=== PATIENT | female | born 1960 | race Caucasian/White ===

== ENCOUNTER 2018-09-03 12:36 | Inpatient (IN) | payer BC, MEDICARE ==
[2018-09-03 12:50] LABS: Glucose,Whole Blood 557 mg/dL (75-99)
[2018-09-03] MEDS ORDERED: SODIUM CHLORIDE 0.9% 1,000 ML IV STA (13:25)
--- NOTE | 2018-09-03 13:31 | ED ---
Weakness HPI - General Chief complaint: Weakness Stated complaint: hyperglycemia Time Seen by Provider: 09/03/18 12:57 Source: patient, RN notes reviewed Mode of arrival: ambulatory Limitations: no limitations - History of Present Illness Initial comments: 57-year-old female presents emergency Department chief complaint of generalized weakness, hyperglycemia. Patient states her blood sugars have been very elevated over the last 3-4 days. She states she did not read this morning. Patient states that she is on metformin and insulin. Patient states she try to see her PCP who advised to come emergency department. She states she got lightheaded, dizzy fell off balance. Patient denies any current chest pain or shortness breath. She does have chronic back pain not worsened usual. She does have urinary frequency and increased thirst. Patient denies any fevers or chills no recent URI symptoms. Denies any focal weakness - Related Data Home Medications Medication Instructions Recorded Confirmed Aspirin 325 mg PO DAILY 09/03/18 09/03/18 Atenolol 100 mg PO DAILY 09/03/18 09/03/18 Calcium 1000mg 1,000 mg PO DAILY 09/03/18 09/03/18 Insulin NPH Human Isophane 45 unit SQ BID 09/03/18 09/03/18 [NovoLIN N] Insulin Regular, Human [NovoLIN R] 25 unit SQ AC-TID 09/03/18 09/03/18 Insulin Regular, Human [Novolin R] See Protocol SQ AC-TID 09/03/18 09/03/18 Krill Oil 500 mg PO DAILY 09/03/18 09/03/18 LORazepam [Ativan] 2 mg PO TID 09/03/18 09/03/18 Lisinopril [Zestril] 20 mg PO DAILY 09/03/18 09/03/18 Lisinopril-Hctz 20-12.5 mg 1 tab PO DAILY 09/03/18 09/03/18 [Zestoretic 20-12.5] QUEtiapine FUMARATE [SEROquel] 600 mg PO HS 09/03/18 09/03/18 Trileptal(Unknown Dose) 1 tab PO BID 09/03/18 09/03/18 Vitamin B Complex 1 cap PO DAILY 09/03/18 09/03/18 Vortioxetine Hydrobromide 5 mg PO BID 09/03/18 09/03/18 [Brintellix] Zolpidem Tartrate [Ambien] 5 mg PO HS 09/03/18 09/03/18 metFORMIN HCL 1,000 mg PO BID 09/03/18 09/03/18 Allergies Allergy/AdvReac Type Severity Reaction Status Date / Time No Known Allergies Allergy Verified 09/03/18 13:34 Review of Systems ROS Statement: Those systems with pertinent positive or pertinent negative responses have been documented in the HPI. ROS Other: All systems not noted in ROS Statement are negative. Past Medical History Past Medical History: Diabetes Mellitus, Hypertension Additional Past Medical History / Comment(s): Brain injury History of Any Multi-Drug Resistant Organisms: None Reported Additional Past Surgical History / Comment(s): Foot, back x 5, arm Past Psychological History: Anxiety, Depression, PTSD Smoking Status: Never smoker Past Alcohol Use History: None Reported Past Drug Use History: None Reported General Exam Limitations: no limitations General appearance: alert, in no apparent distress Head exam: Present: atraumatic, normocephalic, normal inspection Eye exam: Present: normal appearance, PERRL, EOMI. Absent: scleral icterus, conjunctival injection, periorbital swelling ENT exam: Present: normal oropharynx, mucous membranes dry. Absent: mucous membranes moist Neck exam: Present: normal inspection. Absent: tenderness, meningismus, lymphadenopathy Respiratory exam: Present: normal lung sounds bilaterally. Absent: respiratory distress, wheezes, rales, rhonchi, stridor Cardiovascular Exam: Present: normal rhythm, tachycardia, normal heart sounds. Absent: systolic murmur, diastolic murmur, rubs, gallop, clicks GI/Abdominal exam: Present: soft, normal bowel sounds. Absent: distended, tenderness, guarding, rebound, rigid Extremities exam: Present: normal inspection, full ROM, normal capillary refill. Absent: tenderness, pedal edema, joint swelling, calf tenderness Neurological exam: Present: alert, oriented X3, CN II-XII intact, reflexes normal. Absent: motor sensory deficit Skin exam: Present: warm, dry, intact, normal color. Absent: rash Course Vital Signs 09/03/18 09/03/18 09/03/18 12:42 14:37 16:08 Temperature 97.7 F 97.8 F 97.8 F Pulse Rate 120 H 104 H 93 Respiratory 20 16 18 Rate Blood Pressure 87/53 104/56 126/71 O2 Sat by Pulse 99 95 97 Oximetry EKG Findings - EKG Comments: EKG Findings:: EKG performed at 14:15 sinus tachycardia with a rate of 101 HI 162 QRS 96 QT/QTC 360/466 Medical Decision Making - Medical Decision Making 57-year-old female presented for weakness, hyperglycemia. Patient be admitted for uncontrolled diabetes, hyperglycemia, lactic acidosis, urinary tract infection . Patient was given 2 L fluid bolus of normal saline, started on 200 and hour, patient was given insulin and started on insulin drip at 0.05 mcg/kg per hour. Patient was given Rocephin for urinary tract infection, urine culture was obtained patient will have consult to certified breastfeeding educator, dietitian. Repeat labs. - Lab Data Result diagrams: 09/03/18 14:11 09/03/18 14:11 Lab Results 09/03/18 09/03/18 09/03/18 Range/Units 12:47 14:11 14:11 WBC 5.0 (3.8-10.6) k/uL RBC 4.55 (3.80-5.40) m/uL Hgb 12.8 (11.4-16.0) gm/dL Hct 39.3 (34.0-46.0) % MCV 86.4 (80.0-100.0) fL MCH 28.2 (25.0-35.0) pg MCHC 32.7 (31.0-37.0) g/dL RDW 14.8 (11.5-15.5) % Plt Count 95 L (150-450) k/uL Neutrophils % 57 % Lymphocytes % 30 % Monocytes % 7 % Eosinophils % 3 % Basophils % 1 % Neutrophils # 2.9 (1.3-7.7) k/uL Lymphocytes # 1.5 (1.0-4.8) k/uL Monocytes # 0.3 (0-1.0) k/uL Eosinophils # 0.1 (0-0.7) k/uL Basophils # 0.0 (0-0.2) k/uL Sodium 129 L (137-145) mmol/L Potassium 4.0 (3.5-5.1) mmol/L Chloride 92 L (98-107) mmol/L Carbon Dioxide 22 (22-30) mmol/L Anion Gap 15 mmol/L BUN 34 H (7-17) mg/dL Creatinine 1.65 H (0.52-1.04) mg/dL Est GFR (CKD-EPI)AfAm 40 (>60 ml/min/1.73 sqM) Est GFR (CKD-EPI)NonAf 35 (>60 ml/min/1.73 sqM) Glucose 611 H* (74-99) mg/dL POC Glucose (mg/dL) 557 H (75-99) mg/dL POC Glu Protozoologist ID Praveen Callejas Plasma Lactic Acid Feroz (0.7-2.0) mmol/L Calcium 9.6 (8.4-10.2) mg/dL Total Bilirubin 0.6 (0.2-1.3) mg/dL AST 108 H (14-36) U/L ALT 132 H (9-52) U/L Alkaline Phosphatase 120 (38-126) U/L Troponin I (0.000-0.034) ng/mL Total Protein 6.6 (6.3-8.2) g/dL Albumin 3.7 (3.5-5.0) g/dL Urine Color Urine Appearance (Clear) Urine pH (5.0-8.0) Ur Specific [place] (1.001-1.035) Urine Protein (Negative) Urine Glucose (UA) (Negative) Urine Ketones (Negative) Urine Blood (Negative) Urine Nitrite (Negative) Urine Bilirubin (Negative) Urine Urobilinogen (<2.0) mg/dL Ur Leukocyte Esterase (Negative) Urine RBC (0-5) /hpf Urine WBC (0-5) /hpf Ur Squamous Epith Cells (0-4) /hpf Urine Bacteria (None) /hpf Hyaline Casts (0-2) /lpf Urine Mucus (None) /hpf Acetone, Qual Negative (Negative) 09/03/18 09/03/18 09/03/18 Range/Units 14:11 14:25 15:08 WBC (3.8-10.6) k/uL RBC (3.80-5.40) m/uL Hgb (11.4-16.0) gm/dL Hct (34.0-46.0) % MCV (80.0-100.0) fL MCH (25.0-35.0) pg MCHC (31.0-37.0) g/dL RDW (11.5-15.5) % Plt Count (150-450) k/uL Neutrophils % % Lymphocytes % % Monocytes % % Eosinophils % % Basophils % % Neutrophils # (1.3-7.7) k/uL Lymphocytes # (1.0-4.8) k/uL Monocytes # (0-1.0) k/uL Eosinophils # (0-0.7) k/uL Basophils # (0-0.2) k/uL Sodium (137-145) mmol/L Potassium (3.5-5.1) mmol/L Chloride (98-107) mmol/L Carbon Dioxide (22-30) mmol/L Anion Gap mmol/L BUN (7-17) mg/dL Creatinine (0.52-1.04) mg/dL Est GFR (CKD-EPI)AfAm (>60 ml/min/1.73 sqM) Est GFR (CKD-EPI)NonAf (>60 ml/min/1.73 sqM) Glucose (74-99) mg/dL POC Glucose (mg/dL) (75-99) mg/dL POC Glu Protozoologist ID Plasma Lactic Acid Feroz 3.3 H* (0.7-2.0) mmol/L Calcium (8.4-10.2) mg/dL Total Bilirubin (0.2-1.3) mg/dL AST (14-36) U/L ALT (9-52) U/L Alkaline Phosphatase (38-126) U/L Troponin I 0.013 (0.000-0.034) ng/mL Total Protein (6.3-8.2) g/dL Albumin (3.5-5.0) g/dL Urine Color Yellow Urine Appearance Cloudy H (Clear) Urine pH 5.0 (5.0-8.0) Ur Specific [place] 1.019 (1.001-1.035) Urine Protein Trace H (Negative) Urine Glucose (UA) 4+ H (Negative) Urine Ketones Negative (Negative) Urine Blood Small H (Negative) Urine Nitrite Negative (Negative) Urine Bilirubin Negative (Negative) Urine Urobilinogen <2.0 (<2.0) mg/dL Ur Leukocyte Esterase Large H (Negative) Urine RBC 4 (0-5) /hpf Urine WBC 72 H (0-5) /hpf Ur Squamous Epith Cells 2 (0-4) /hpf Urine Bacteria Few H (None) /hpf Hyaline Casts 5 H (0-2) /lpf Urine Mucus Rare H (None) /hpf Acetone, Qual (Negative) Disposition Clinical Impression: Hyperglycemia, Uncontrolled diabetes mellitus, Lactic acidosis, Urinary tract infection Disposition: ADMITTED IP TO THIS HOSP Condition: Fair Referrals: Narayan Rocha DO [Primary Care Provider] - 1-2 days
[2018-09-03 14:42] LABS: ALT 132 U/L (9-52); AST 108 U/L (14-36); Albumin 3.7 g/dL (3.5-5.0); Alkaline Phosphatase 120 U/L (38-126); Anion Gap 15 mmol/L; Blood Urea Nitrogen 34 mg/dL (7-17); Calcium 9.6 mg/dL (8.4-10.2); Carbon Dioxide 22 mmol/L (22-30); Chloride 92 mmol/L (98-107); Sodium 129 mmol/L (137-145); Total Bilirubin 0.6 mg/dL (0.2-1.3); Total Protein 6.6 g/dL (6.3-8.2)
[2018-09-03 14:49] LABS: Appearance,Urine Cloudy (Clear); Bacteria,Urine Few /hpf; Bilirubin,Urine Negative (Negative); Blood,Urine Small (Negative); Color,Urine Yellow; Glucose,Urine (UA) 4+ (Negative); Hyaline Casts,Urine 5 /lpf (0-2); Ketones,Urine Negative (Negative); Leukocyte Esterase,Urine Large (Negative); Mucus,Urine Rare /hpf; Nitrite,Urine Negative (Negative); Protein,Urine Trace (Negative); RBC,Urine 4 /hpf (0-5); Specific Gravity,Urine 1.019 (1.001-1.035); Squamous Epithelial Cell,Urine 2 /hpf (0-4); Urobilinogen,Urine <2.0 mg/dL (<2.0); WBC,Urine 72 /hpf (0-5)
[2018-09-03 14:49] LABS: Glucose 611 mg/dL (74-99)
[2018-09-03 14:51] LABS: Basophils % (A) 1 %; Eosinophils # (A) 0.1 k/uL (0-0.7); Eosinophils % (A) 3 %; HCT 39.3 % (34.0-46.0); HGB 12.8 gm/dL (11.4-16.0); Lymphocytes # (A) 1.5 k/uL (1.0-4.8); Lymphocytes % (A) 30 %; MCH 28.2 pg (25.0-35.0); MCHC 32.7 g/dL (31.0-37.0); MCV 86.4 fL (80.0-100.0); Mean Platelet Volume 8.6; Monocytes # (A) 0.3 k/uL (0-1.0); Monocytes % (A) 7 %; Neutrophils # (A) 2.9 k/uL (1.3-7.7); Neutrophils % (A) 57 %; RBC 4.55 m/uL (3.80-5.40); RDW 14.8 % (11.5-15.5)
[2018-09-03] MEDS ORDERED: INSULIN REGULAR 100 UNIT/ML VIAL IV ONE (15:16)
[2018-09-03 15:25] LABS: Platelet Count 95 k/uL (150-450)
[2018-09-03] MEDS ORDERED: INSULIN REGULAR 100 UNIT in SODIUM CHLORIDE 0.9% 100 ML IV SCH (16:30)
[2018-09-03] MEDS: SODIUM CHLORIDE 0.9% 1,000 ML IV SCH ×2 (16:59→21:50)
[2018-09-03 17:04] LABS: Glucose,Whole Blood 463 mg/dL (75-99)
[2018-09-03] MEDS ORDERED: ONDANSETRON 4 MG/2 ML VIAL IVP PRN (17:27)
[2018-09-03 18:01] LABS: Glucose,Whole Blood 405 mg/dL (75-99)
--- NOTE | 2018-09-03 18:39 | P.HPIM ---
History of Present Illness H&P Date: 09/03/18 Chief Complaint: Elevated blood sugar This is a 57-year-old female with past medical history noted below significant for morbid obesity and type 2 diabetes who presented to the emergency room with elevated blood sugar. Patient said that for the past couple of days she has not been feeling well. She is complaining of urinary frequency and some suprapubic pain. She has been having decreased appetite. She said that she has been taking her insulin as directed by noted that her blood glucose has been persistently high over the past couple of days. She called her PCP today who directed her to go to the emergency room. In the emergency room, blood glucose was noted to be 611 on presentation with no anion gap and no evidence of metabolic acidosis. Patient had mild elevation in her lactic acid. She was started on IV insulin drip and aggressive IV fluid hydration. Patient is doing better when I saw her. She does not have any complaints. Review of Systems Review of system: 14 points review of systems were obtained and were negative except to what were mentioned in the HPI. Past Medical History Past Medical History: Diabetes Mellitus, Hypertension Additional Past Medical History / Comment(s): Brain injury History of Any Multi-Drug Resistant Organisms: None Reported Additional Past Surgical History / Comment(s): Foot, back x 5, arm Past Psychological History: Anxiety, Depression, PTSD Smoking Status: Never smoker Past Alcohol Use History: None Reported Past Drug Use History: None Reported Medications and Allergies Home Medications Medication Instructions Recorded Confirmed Type Aspirin 325 mg PO DAILY 09/03/18 09/03/18 History Atenolol 100 mg PO DAILY 09/03/18 09/03/18 History Calcium 1000mg 1,000 mg PO DAILY 09/03/18 09/03/18 History Insulin NPH Human Isophane 45 unit SQ BID 09/03/18 09/03/18 History [NovoLIN N] Insulin Regular, Human [NovoLIN R] 25 unit SQ AC-TID 09/03/18 09/03/18 History Insulin Regular, Human [Novolin R] See Protocol SQ AC-TID 09/03/18 09/03/18 History Krill Oil 500 mg PO DAILY 09/03/18 09/03/18 History LORazepam [Ativan] 2 mg PO TID 09/03/18 09/03/18 History Lisinopril [Zestril] 20 mg PO DAILY 09/03/18 09/03/18 History Lisinopril-Hctz 20-12.5 mg 1 tab PO DAILY 09/03/18 09/03/18 History [Zestoretic 20-12.5] QUEtiapine FUMARATE [SEROquel] 600 mg PO HS 09/03/18 09/03/18 History Trileptal(Unknown Dose) 1 tab PO BID 09/03/18 09/03/18 History Vitamin B Complex 1 cap PO DAILY 09/03/18 09/03/18 History Vortioxetine Hydrobromide 5 mg PO BID 09/03/18 09/03/18 History [Brintellix] Zolpidem Tartrate [Ambien] 5 mg PO HS 09/03/18 09/03/18 History metFORMIN HCL 1,000 mg PO BID 09/03/18 09/03/18 History Allergies Allergy/AdvReac Type Severity Reaction Status Date / Time No Known Allergies Allergy Verified 09/03/18 13:34 Physical Exam Vitals: Vital Signs Temp Pulse Resp BP Pulse Ox 09/03/18 16:08 97.8 F 93 18 126/71 97 09/03/18 14:37 97.8 F 104 H 16 104/56 95 09/03/18 12:42 97.7 F 120 H 20 87/53 99 Intake and Output 09/03/18 09/03/18 09/03/18 06:59 14:59 22:59 Intake Total 6.846 Balance 6.846 Intake: Intake, IV Titration 6.846 Amount Insulin Regular 100 unit 6.846 In Sodium Chloride 0.9% 100 ml @ 0.05 UNITS/KG/HR 6.52 mls/hr IV .[id number] [facility] Rx#:[id number] Other: Weight 129.274 kg General: The patient is awake and alert, in no distress. Patient is morbidly obese Eye: there is normal conjunctiva bilaterally. Neck: The neck is supple, there is no JVD. Cardiovascular: Normal S1-S2, no S3-S4, no murmurs. Respiratory: Lungs clear to auscultation bilaterally Gastrointestinal: Abdomen is soft, nontender Musculoskeletal: There is no pedal edema. Neurological:. Speech is normal. Skin: Skin is warm and dry Results CBC & Chem 7: 09/03/18 14:11 09/03/18 14:11 Labs: Abnormal Lab Results - Last 24 Hours (Table) 09/03/18 09/03/18 09/03/18 Range/Units 12:47 14:11 14:11 Plt Count 95 L (150-450) k/uL Sodium 129 L (137-145) mmol/L Chloride 92 L (98-107) mmol/L BUN 34 H (7-17) mg/dL Creatinine 1.65 H (0.52-1.04) mg/dL Glucose 611 H* (74-99) mg/dL POC Glucose (mg/dL) 557 H (75-99) mg/dL Plasma Lactic Acid Feroz (0.7-2.0) mmol/L AST 108 H (14-36) U/L ALT 132 H (9-52) U/L Urine Appearance (Clear) Urine Protein (Negative) Urine Glucose (UA) (Negative) Urine Blood (Negative) Ur Leukocyte Esterase (Negative) Urine WBC (0-5) /hpf Urine Bacteria (None) /hpf Hyaline Casts (0-2) /lpf Urine Mucus (None) /hpf 09/03/18 09/03/18 09/03/18 Range/Units 14:25 15:08 17:02 Plt Count (150-450) k/uL Sodium (137-145) mmol/L Chloride (98-107) mmol/L BUN (7-17) mg/dL Creatinine (0.52-1.04) mg/dL Glucose (74-99) mg/dL POC Glucose (mg/dL) 463 H (75-99) mg/dL Plasma Lactic Acid Feroz 3.3 H* (0.7-2.0) mmol/L AST (14-36) U/L ALT (9-52) U/L Urine Appearance Cloudy H (Clear) Urine Protein Trace H (Negative) Urine Glucose (UA) 4+ H (Negative) Urine Blood Small H (Negative) Ur Leukocyte Esterase Large H (Negative) Urine WBC 72 H (0-5) /hpf Urine Bacteria Few H (None) /hpf Hyaline Casts 5 H (0-2) /lpf Urine Mucus Rare H (None) /hpf 09/03/18 Range/Units 17:59 Plt Count (150-450) k/uL Sodium (137-145) mmol/L Chloride (98-107) mmol/L BUN (7-17) mg/dL Creatinine (0.52-1.04) mg/dL Glucose (74-99) mg/dL POC Glucose (mg/dL) 405 H (75-99) mg/dL Plasma Lactic Acid Feroz (0.7-2.0) mmol/L AST (14-36) U/L ALT (9-52) U/L Urine Appearance (Clear) Urine Protein (Negative) Urine Glucose (UA) (Negative) Urine Blood (Negative) Ur Leukocyte Esterase (Negative) Urine WBC (0-5) /hpf Urine Bacteria (None) /hpf Hyaline Casts (0-2) /lpf Urine Mucus (None) /hpf Assessment and Plan Assessment: 1. UTI 2. Sepsis with septic shock on presentation 3. Hyperglycemia without DKA 4. Uncontrolled type 2 diabetes 5. Hypovolemic hyponatremia 6. Acute kidney injury 7. Underlying PTSD, anxiety, and depression Patient was seen and evaluated by me in the emergency room. We will continue aggressive IV fluid hydration with normal saline. Patient is currently on her second bolus then we will continue at 200 mL per hour. IV insulin drip initiated and most recent blood glucose is approximately 400 improving from 611. Repeat lactic acid ordered for now. We will continue supportive care. Antibiotic with IV ceftriaxone. Awaiting urine and blood culture.
[2018-09-03 19:06] LABS: Glucose,Whole Blood 355 mg/dL (75-99)
[2018-09-03 20:07] LABS: Glucose,Whole Blood 295 mg/dL (75-99)
[2018-09-03 21:47] LABS: Glucose,Whole Blood 215 mg/dL (75-99)
[2018-09-03] MEDS: INSULIN ASPART 100 UNIT/ML 1 ML 10 ML VIAL SQ SCH (21:49)
[2018-09-03] MEDS: HEPARIN SODIUM,PORCINE 5,000 UNIT/ML 1 ML VIAL SQ SCH (21:49)
[2018-09-03] MEDS: LORazepam 1 MG TAB PO PRN (21:49)
[2018-09-03] MEDS: QUEtiapine 400 MG TAB PO SCH (23:23)
[2018-09-03] MEDS: ACETAMINOPHEN TAB 325 MG TAB PO PRN (23:24)
[2018-09-04] MEDS: SODIUM CHLORIDE 0.9% 1,000 ML IV SCH ×2 (00:44→04:47)
[2018-09-04 06:39] LABS: Glucose,Whole Blood 393 mg/dL (75-99)
[2018-09-04] MEDS: INSULIN ASPART 100 UNIT/ML 1 ML 10 ML VIAL SQ SCH ×4 (06:46→21:10)
[2018-09-04 07:30] LABS: Albumin 3.3 g/dL (3.5-5.0); Potassium 4.2 mmol/L (3.5-5.1); Total Bilirubin 0.4 mg/dL (0.2-1.3); Total Protein 6.1 g/dL (6.3-8.2)
[2018-09-04 07:48] LABS: Basophils % (A) 1 %; Eosinophils # (A) 0.1 k/uL (0-0.7); Eosinophils % (A) 3 %; HCT 37.4 % (34.0-46.0); HGB 11.9 gm/dL (11.4-16.0); Lymphocytes % (A) 47 %; MCH 27.3 pg (25.0-35.0); MCV 85.5 fL (80.0-100.0); Monocytes # (A) 0.2 k/uL (0-1.0); Monocytes % (A) 5 %; Neutrophils # (A) 1.7 k/uL (1.3-7.7); Neutrophils % (A) 41 %; RBC 4.37 m/uL (3.80-5.40); RDW 14.8 % (11.5-15.5); WBC 4.2 k/uL (3.8-10.6)
[2018-09-04 07:55] LABS: Platelet Count 95 k/uL (150-450)
[2018-09-04] MEDS: INSULIN NPH 300 UNIT/3 ML VIAL SQ SCH ×2 (10:24→17:29)
[2018-09-04] MEDS: INSULIN REGULAR 100 UNIT/ML VIAL SQ SCH ×3 (10:25→17:30)
[2018-09-04] MEDS: ASPIRIN 325 MG TAB PO SCH (10:30)
[2018-09-04] MEDS: traMADol 50 MG TAB PO SCH ×3 (10:31→21:10)
[2018-09-04] MEDS: HEPARIN SODIUM,PORCINE 5,000 UNIT/ML 1 ML VIAL SQ SCH ×2 (10:31→21:10)
[2018-09-04] MEDS: LISINOPRIL 20 MG TAB PO SCH (10:31)
--- NOTE | 2018-09-04 11:16 | P.PN ---
Subjective Progress Note Date: 09/04/18 Patient is doing well today. Her blood glucose was elevated this morning. Insulin drip was discontinued last night but unfortunately patient was not started on any of her home dose of insulin. Objective - Vital Signs Vital signs: Vital Signs Temp 97.7 F 09/04/18 08:00 Pulse 100 09/04/18 08:00 Resp 18 09/04/18 08:00 BP 133/70 09/04/18 08:00 Pulse Ox 94 L 09/04/18 08:00 Intake & Output 09/03/18 09/04/18 09/04/18 18:59 06:59 18:59 Intake Total 490.355 10.292 360 Balance 490.355 10.292 360 Weight 129.274 kg 129.6 kg Intake: Intake, IV Titration 10.355 10.292 Amount Insulin Regular 100 unit 10.355 10.292 In Sodium Chloride 0.9% 100 ml @ 0.05 UNITS/KG/HR 6.52 mls/hr IV .[id number] [facility] Rx#:[id number] Oral 480 360 Other: Voiding Method Toilet - Exam General: The patient is awake and alert, in no distress Eye: there is normal conjunctiva bilaterally. Neck: The neck is supple, there is no JVD. Cardiovascular: Normal S1-S2, no S3-S4, no murmurs. Respiratory: Lungs clear to auscultation bilaterally Gastrointestinal: Abdomen is soft, nontender Musculoskeletal: There is no pedal edema. Neurological:. Speech is normal. Skin: Skin is warm and dry - Labs CBC & Chem 7: 09/04/18 06:21 09/04/18 06:21 Labs: Abnormal Lab Results - Last 24 Hours (Table) 09/03/18 09/03/18 09/03/18 Range/Units 12:47 14:11 14:11 Plt Count 95 L (150-450) k/uL Sodium 129 L (137-145) mmol/L Chloride 92 L (98-107) mmol/L BUN 34 H (7-17) mg/dL Creatinine 1.65 H (0.52-1.04) mg/dL Glucose 611 H* (74-99) mg/dL POC Glucose (mg/dL) 557 H (75-99) mg/dL Plasma Lactic Acid Feroz (0.7-2.0) mmol/L AST 108 H (14-36) U/L ALT 132 H (9-52) U/L Total Protein (6.3-8.2) g/dL Albumin (3.5-5.0) g/dL Urine Appearance (Clear) Urine Protein (Negative) Urine Glucose (UA) (Negative) Urine Blood (Negative) Ur Leukocyte Esterase (Negative) Urine WBC (0-5) /hpf Urine Bacteria (None) /hpf Hyaline Casts (0-2) /lpf Urine Mucus (None) /hpf 09/03/18 09/03/18 09/03/18 Range/Units 14:25 15:08 17:02 Plt Count (150-450) k/uL Sodium (137-145) mmol/L Chloride (98-107) mmol/L BUN (7-17) mg/dL Creatinine (0.52-1.04) mg/dL Glucose (74-99) mg/dL POC Glucose (mg/dL) 463 H (75-99) mg/dL Plasma Lactic Acid Feroz 3.3 H* (0.7-2.0) mmol/L AST (14-36) U/L ALT (9-52) U/L Total Protein (6.3-8.2) g/dL Albumin (3.5-5.0) g/dL Urine Appearance Cloudy H (Clear) Urine Protein Trace H (Negative) Urine Glucose (UA) 4+ H (Negative) Urine Blood Small H (Negative) Ur Leukocyte Esterase Large H (Negative) Urine WBC 72 H (0-5) /hpf Urine Bacteria Few H (None) /hpf Hyaline Casts 5 H (0-2) /lpf Urine Mucus Rare H (None) /hpf 09/03/18 09/03/18 09/03/18 Range/Units 17:59 19:03 19:10 Plt Count (150-450) k/uL Sodium (137-145) mmol/L Chloride (98-107) mmol/L BUN (7-17) mg/dL Creatinine (0.52-1.04) mg/dL Glucose (74-99) mg/dL POC Glucose (mg/dL) 405 H 355 H (75-99) mg/dL Plasma Lactic Acid Feroz 2.5 H* (0.7-2.0) mmol/L AST (14-36) U/L ALT (9-52) U/L Total Protein (6.3-8.2) g/dL Albumin (3.5-5.0) g/dL Urine Appearance (Clear) Urine Protein (Negative) Urine Glucose (UA) (Negative) Urine Blood (Negative) Ur Leukocyte Esterase (Negative) Urine WBC (0-5) /hpf Urine Bacteria (None) /hpf Hyaline Casts (0-2) /lpf Urine Mucus (None) /hpf 09/03/18 09/03/18 09/04/18 Range/Units 20:05 21:43 06:21 Plt Count 95 L (150-450) k/uL Sodium (137-145) mmol/L Chloride (98-107) mmol/L BUN (7-17) mg/dL Creatinine (0.52-1.04) mg/dL Glucose (74-99) mg/dL POC Glucose (mg/dL) 295 H 215 H (75-99) mg/dL Plasma Lactic Acid Feroz (0.7-2.0) mmol/L AST (14-36) U/L ALT (9-52) U/L Total Protein (6.3-8.2) g/dL Albumin (3.5-5.0) g/dL Urine Appearance (Clear) Urine Protein (Negative) Urine Glucose (UA) (Negative) Urine Blood (Negative) Ur Leukocyte Esterase (Negative) Urine WBC (0-5) /hpf Urine Bacteria (None) /hpf Hyaline Casts (0-2) /lpf Urine Mucus (None) /hpf 09/04/18 09/04/18 Range/Units 06:21 06:38 Plt Count (150-450) k/uL Sodium 136 L (137-145) mmol/L Chloride (98-107) mmol/L BUN 26 H (7-17) mg/dL Creatinine (0.52-1.04) mg/dL Glucose 393 H (74-99) mg/dL POC Glucose (mg/dL) 393 H (75-99) mg/dL Plasma Lactic Acid Feroz (0.7-2.0) mmol/L AST 107 H (14-36) U/L ALT 121 H (9-52) U/L Total Protein 6.1 L (6.3-8.2) g/dL Albumin 3.3 L (3.5-5.0) g/dL Urine Appearance (Clear) Urine Protein (Negative) Urine Glucose (UA) (Negative) Urine Blood (Negative) Ur Leukocyte Esterase (Negative) Urine WBC (0-5) /hpf Urine Bacteria (None) /hpf Hyaline Casts (0-2) /lpf Urine Mucus (None) /hpf Microbiology - Last 24 Hours (Table) 09/03/18 14:25 Urine Culture - Preliminary Urine,Voided Assessment and Plan Assessment: 1. UTI: Urine and blood culture pending. Continue IV ceftriaxone. 2. Sepsis with septic shock on presentation: Resolved with aggressive IV fluid resuscitation 3. Hyperglycemia without DKA 4. Uncontrolled type 2 diabetes awaiting A1c. Insulin drip was discontinued and home dose of insulin was resumed 5. Hypovolemic hyponatremia: Improving 6. Acute kidney injury on presentation now resolved 7. Underlying PTSD, anxiety, and depression 8. Underlying essential hypertension. Most of her blood pressure medications on hold except lisinopril given borderline low blood pressure
[2018-09-04 11:26] LABS: Glucose,Whole Blood 430 mg/dL (75-99)
[2018-09-04 13:06] VITALS: BMI 47.5
[2018-09-04 16:31] LABS: Glucose,Whole Blood 411 mg/dL (75-99)
[2018-09-04 18:06] LABS: Hemoglobin A1C 13.9 % (4.0-6.0)
[2018-09-04 21:03] LABS: Glucose,Whole Blood 430 mg/dL (75-99)
[2018-09-04] MEDS: QUEtiapine 400 MG TAB PO SCH (21:10)
[2018-09-04 22:17] LABS: Glucose,Whole Blood 361 mg/dL (75-99)
[2018-09-05] MEDS: LORazepam 1 MG TAB PO PRN ×2 (02:30→19:55)
[2018-09-05 06:21] LABS: Glucose,Whole Blood 305 mg/dL (75-99)
[2018-09-05 06:30] LABS: Basophils % (A) 1 %; Eosinophils # (A) 0.1 k/uL (0-0.7); Eosinophils % (A) 4 %; HCT 35.6 % (34.0-46.0); HGB 11.8 gm/dL (11.4-16.0); Lymphocytes # (A) 1.6 k/uL (1.0-4.8); Lymphocytes % (A) 51 %; MCH 28.4 pg (25.0-35.0); MCHC 33.2 g/dL (31.0-37.0); MCV 85.7 fL (80.0-100.0); Monocytes # (A) 0.2 k/uL (0-1.0); Monocytes % (A) 6 %; Neutrophils # (A) 1.2 k/uL (1.3-7.7); Neutrophils % (A) 36 %; RBC 4.16 m/uL (3.80-5.40); RDW 14.8 % (11.5-15.5); WBC 3.2 k/uL (3.8-10.6)
[2018-09-05] MEDS: INSULIN ASPART 100 UNIT/ML 1 ML 10 ML VIAL SQ SCH ×4 (06:32→19:55)
[2018-09-05 06:35] LABS: Platelet Count 77 k/uL (150-450)
[2018-09-05] MEDS: INSULIN REGULAR 100 UNIT/ML VIAL SQ SCH ×3 (07:10→17:49)
[2018-09-05] MEDS: INSULIN NPH 300 UNIT/3 ML VIAL SQ SCH ×2 (07:11→17:48)
[2018-09-05 07:17] LABS: ALT 104 U/L (9-52); AST 78 U/L (14-36); Albumin 3.4 g/dL (3.5-5.0); Alkaline Phosphatase 104 U/L (38-126); Anion Gap 9 mmol/L; Blood Urea Nitrogen 19 mg/dL (7-17); Calcium 8.9 mg/dL (8.4-10.2); Carbon Dioxide 27 mmol/L (22-30); Chloride 100 mmol/L (98-107); Glucose 316 mg/dL (74-99); Potassium 4.3 mmol/L (3.5-5.1); Sodium 136 mmol/L (137-145); Total Bilirubin 0.5 mg/dL (0.2-1.3); Total Protein 6.3 g/dL (6.3-8.2)
[2018-09-05] MEDS: HEPARIN SODIUM,PORCINE 5,000 UNIT/ML 1 ML VIAL SQ SCH ×2 (09:00→19:55)
[2018-09-05] MEDS: LISINOPRIL 20 MG TAB PO SCH (09:00)
[2018-09-05] MEDS: ASPIRIN 325 MG TAB PO SCH (09:00)
[2018-09-05] MEDS: traMADol 50 MG TAB PO SCH ×3 (09:00→21:59)
--- NOTE | 2018-09-05 11:50 | P.PN ---
Subjective Progress Note Date: 09/05/18 Patient is not feeling well today. She is having a lot of pain mostly in the left lower quadrant. She described her pain as if someone is stabbing her with a knife. She told her nurse earlier that she had blood with her urine. Objective - Vital Signs Vital signs: Vital Signs Temp 98.2 F 09/05/18 08:00 Pulse 101 H 09/05/18 08:00 Resp 18 09/05/18 08:00 BP 131/82 09/05/18 08:00 Pulse Ox 95 09/05/18 08:00 Intake & Output 09/04/18 09/05/18 09/05/18 18:59 06:59 18:59 Intake Total 960 180 Balance 960 180 Weight 129.6 kg 132.5 kg Intake: Oral 960 180 Other: Voiding Method Toilet Toilet Toilet # Voids 3 2 - Exam General: The patient is awake and alert, in no distress Eye: there is normal conjunctiva bilaterally. Neck: The neck is supple, there is no JVD. Cardiovascular: Normal S1-S2, no S3-S4, no murmurs. Respiratory: Lungs clear to auscultation bilaterally Gastrointestinal: Abdomen is soft, there is mild tenderness to palpation in the left lower quadrant. Abdominal exam is limited secondary to obese abdomen Musculoskeletal: There is no pedal edema. Neurological:. Speech is normal. Skin: Skin is warm and dry - Labs CBC & Chem 7: 09/05/18 06:07 09/05/18 06:07 Labs: Abnormal Lab Results - Last 24 Hours (Table) 09/04/18 09/04/18 09/04/18 Range/Units 06:21 16:28 20:32 WBC (3.8-10.6) k/uL Plt Count (150-450) k/uL Neutrophils # (1.3-7.7) k/uL Sodium (137-145) mmol/L BUN (7-17) mg/dL Glucose (74-99) mg/dL POC Glucose (mg/dL) 411 H 430 H (75-99) mg/dL Hemoglobin A1c 13.9 H (4.0-6.0) % AST (14-36) U/L ALT (9-52) U/L Albumin (3.5-5.0) g/dL 09/04/18 09/05/18 09/05/18 Range/Units 22:16 06:07 06:07 WBC 3.2 L (3.8-10.6) k/uL Plt Count 77 L (150-450) k/uL Neutrophils # 1.2 L (1.3-7.7) k/uL Sodium 136 L (137-145) mmol/L BUN 19 H (7-17) mg/dL Glucose 316 H (74-99) mg/dL POC Glucose (mg/dL) 361 H (75-99) mg/dL Hemoglobin A1c (4.0-6.0) % AST 78 H (14-36) U/L ALT 104 H (9-52) U/L Albumin 3.4 L (3.5-5.0) g/dL 09/05/18 Range/Units 06:10 WBC (3.8-10.6) k/uL Plt Count (150-450) k/uL Neutrophils # (1.3-7.7) k/uL Sodium (137-145) mmol/L BUN (7-17) mg/dL Glucose (74-99) mg/dL POC Glucose (mg/dL) 305 H (75-99) mg/dL Hemoglobin A1c (4.0-6.0) % AST (14-36) U/L ALT (9-52) U/L Albumin (3.5-5.0) g/dL Microbiology - Last 24 Hours (Table) 09/03/18 14:25 Urine Culture - Final Urine,Voided 09/03/18 16:05 Blood Culture - Preliminary Blood No Growth after 24 hours Assessment and Plan Assessment: 1. UTI: Urine and blood culture negative to date. Continue IV ceftriaxone. May switch to Keflex to finish 5 days course when ready for discharge 2. Sepsis with septic shock on presentation: Resolved with aggressive IV fluid resuscitation 3. Hyperglycemia without DKA 4. Uncontrolled type 2 diabetes: A1c 13.9. Patient reports compliance with her insulin at home. She was started on insulin drip on presentation and switch to her home insulin regimen. Blood glucose remained not well controlled. I would increase her Novolin R to 30 units 3 times a day with meals. May adjust Novolin N tomorrow if blood glucose remained not well controlled 5. Hypovolemic hyponatremia: Improved 6. Acute kidney injury on presentation now resolved 7. Underlying PTSD, anxiety, and depression 8. Underlying essential hypertension. Most of her blood pressure medications on hold except lisinopril given borderline low blood pressure
[2018-09-05 12:03] LABS: Glucose,Whole Blood 336 mg/dL (75-99)
[2018-09-05] MEDS: ATENOLOL 50 MG TAB PO SCH (12:40)
[2018-09-05 16:52] LABS: Glucose,Whole Blood 226 mg/dL (75-99)
--- NOTE | 2018-09-05 17:17 | CT ---
EXAMINATION TYPE: CT renal stones wo con DATE OF EXAM: 09/05/2018 HISTORY: Left lower quadrant, hematuria CT DLP: 1771 mGycm. Automated Exposure Control for Dose Reduction was Utilized. TECHNIQUE: CT scan of the abdomen and pelvis is performed without oral or IV contrast. COMPARISON: None FINDINGS: Within the limitations of a non-contrast study, the following observations are made. LUNG BASES: No significant abnormality is appreciated. LIVER/GB: There is a cirrhotic morphology of the liver. Liver is also diffusely hypoattenuated compat ible with underlying hepatocellular disease. Lack of of intravenous contrast limits evaluation for he patic lesions. Possible left hepatic lobe 5 mm lesion is seen on image 40. Gallbladder surgically abs ent. PANCREAS: Pancreatic head and uncinate process demonstrate parenchymal atrophy. No ductal dilatation is seen. SPLEEN: Spleen is upper limits of normal size measuring 13.3 cm in longitudinal dimension. Solitary s urgical clip is seen at the lateral periphery of the spleen. ADRENALS: No significant abnormality is seen. KIDNEYS: No nephrolithiasis or hydronephrosis is seen of either kidney. No urinary bladder calculi ar e present. Left lower pole renal cyst is poorly visualized measures at least 1.4 cm on coronal image 80 BOWEL: Anastomotic site is seen of the large bowel in the left lower quadrant with scattered surgical clips throughout the abdomen and prior reversal of the left lower quadrant ostomy with abdominal wal l defect remaining. No dilated large or small bowel to suggest obstruction. Lack of oral contrast and moderate amount retained colonic stool both limit evaluation of the bowel. Few scattered colonic div erticula are present without pericolonic fat stranding. GENITAL ORGANS: No gross abnormality seen. LYMPH NODES: No greater than 1cm abdominal or pelvic lymph nodes are appreciated. OSSEOUS STRUCTURES: Postsurgical changes are seen of the lumbosacral spine with Schmorl's nodes at th e superior endplates of L3 and L4 and bridging anterior osteophytes. OTHER: There is a small fat filled umbilical hernia. Abdominal aorta is of normal course and caliber. IMPRESSION: 1. No renal stones or hydronephrosis is seen bilaterally. 2. Cirrhotic morphology of the liver with questionable left hepatic lesion incompletely characterized without contrast. Three-phase enhanced abdominal CT or MR is recommended for further evaluation. 3. Left lower quadrant colonic anastomotic site without proximal dilatation to suggest obstruction
[2018-09-05 19:47] LABS: Glucose,Whole Blood 293 mg/dL (75-99)
[2018-09-05] MEDS: QUEtiapine 400 MG TAB PO SCH (21:59)
[2018-09-05] MEDS ORDERED: LORazepam 1 MG TAB PO STA (23:47)
[2018-09-06 05:52] LABS: Glucose,Whole Blood 261 mg/dL (75-99)
[2018-09-06 06:28] LABS: Basophils % (A) 1 %; Eosinophils # (A) 0.1 k/uL (0-0.7); Eosinophils % (A) 3 %; HCT 38.7 % (34.0-46.0); HGB 13.2 gm/dL (11.4-16.0); Lymphocytes # (A) 1.8 k/uL (1.0-4.8); Lymphocytes % (A) 50 %; MCH 28.9 pg (25.0-35.0); MCHC 34.1 g/dL (31.0-37.0); MCV 84.8 fL (80.0-100.0); Mean Platelet Volume 8.7; Monocytes # (A) 0.2 k/uL (0-1.0); Monocytes % (A) 5 %; Neutrophils # (A) 1.4 k/uL (1.3-7.7); Neutrophils % (A) 39 %; Platelet Count 86 k/uL (150-450); RBC 4.56 m/uL (3.80-5.40); RDW 14.8 % (11.5-15.5); WBC 3.6 k/uL (3.8-10.6)
[2018-09-06 06:42] LABS: ALT 97 U/L (9-52); AST 88 U/L (14-36); Albumin 3.5 g/dL (3.5-5.0); Alkaline Phosphatase 92 U/L (38-126); Anion Gap 8 mmol/L; Blood Urea Nitrogen 18 mg/dL (7-17); Calcium 9.2 mg/dL (8.4-10.2); Carbon Dioxide 28 mmol/L (22-30); Chloride 100 mmol/L (98-107); Glucose 267 mg/dL (74-99); Potassium 4.6 mmol/L (3.5-5.1); Sodium 136 mmol/L (137-145); Total Bilirubin 0.6 mg/dL (0.2-1.3); Total Protein 6.7 g/dL (6.3-8.2)
[2018-09-06] MEDS: INSULIN ASPART 100 UNIT/ML 1 ML 10 ML VIAL SQ SCH ×4 (06:46→19:56)
[2018-09-06] MEDS: INSULIN REGULAR 100 UNIT/ML VIAL SQ SCH ×3 (07:02→17:17)
[2018-09-06] MEDS: INSULIN NPH 300 UNIT/3 ML VIAL SQ SCH ×2 (07:02→17:18)
[2018-09-06] MEDS: ASPIRIN 325 MG TAB PO SCH (08:46)
[2018-09-06] MEDS: traMADol 50 MG TAB PO SCH ×3 (08:46→21:33)
[2018-09-06] MEDS: ATENOLOL 50 MG TAB PO SCH (08:46)
[2018-09-06] MEDS: HEPARIN SODIUM,PORCINE 5,000 UNIT/ML 1 ML VIAL SQ SCH ×2 (08:47→19:55)
[2018-09-06] MEDS: LISINOPRIL 20 MG TAB PO SCH (08:47)
[2018-09-06] MEDS: LORazepam 1 MG TAB PO PRN ×2 (08:51→19:56)
[2018-09-06 11:14] LABS: Glucose,Whole Blood 268 mg/dL (75-99)
--- NOTE | 2018-09-06 12:17 | P.PN ---
Subjective Progress Note Date: 09/06/18 Patient still complain of "lower quadrant pain, reports history of bowel resection with colostomy, history of small bowel obstruction managed conservatively with NG tube/ Objective - Vital Signs Vital signs: Vital Signs Temp 97.5 F L 09/06/18 08:00 Pulse 74 09/06/18 08:00 Resp 20 09/06/18 08:00 BP 132/78 09/06/18 08:00 Pulse Ox 96 09/06/18 08:00 Intake & Output 09/05/18 09/06/18 09/06/18 18:59 06:59 18:59 Intake Total 626 480 Balance 626 480 Weight 132.5 kg Intake: IV 160 saline 160 Intake, IV Titration 50 Amount cefTRIAXone 1,000 mg In 50 Sodium Chloride 0.9% 50 ml @ 100 mls/hr IVPB Q24HR [facility] Rx#:[id number] Oral 416 480 Other: Voiding Method Toilet Toilet # Voids 3 1 - Exam Constitutional: No acute distress, conversant, pleasant Eyes: Anicteric sclerae, moist conjunctiva, no lid-lag, PERRLA ENMT: NC/AT,Oropharynx clear, no erythema, exudates Neck:Supple, FROM, no masses, or JVD, No carotid bruits; No thyromegaly Lungs: Clear to auscultation, Clear to percussion, Normal respiratory effort, no accessory muscle use Cardiovascular: Heart regular in rate and rhythm, No murmurs, gallops, or rubs no peripheral edema Abdominal: Tender to palpation in the left lower quadrant, no guarding, no rebound or rigidity, Normoactive bowel sounds No hepatomegaly, No splenomegaly , No palpable mass No abdominal wall hernia noted Skin: Normal temperature, tone, texture, turgor, No induration No subcutaneous nodules, No rash, lesions, No ulcers Extremities:No digital cyanosis No clubbing, Pedal pulses intact and symmetrical Radial pulses intact and symmetrical Normal gait and station, No calf tenderness Psychiatric: Alert and oriented to person, place and time, Appropriate affect Intact judgement Neuro: Muscles Strength 5/5 in all 4 extremities, Sensation to light touch grossly present throughout, Cranial nerves II-XII grossly intact. No focal sensory deficits - Labs CBC & Chem 7: 09/06/18 06:08 09/06/18 06:08 Labs: Abnormal Lab Results - Last 24 Hours (Table) 09/05/18 09/05/18 09/06/18 Range/Units 16:44 19:45 05:50 WBC (3.8-10.6) k/uL Plt Count (150-450) k/uL Sodium (137-145) mmol/L BUN (7-17) mg/dL Glucose (74-99) mg/dL POC Glucose (mg/dL) 226 H 293 H 261 H (75-99) mg/dL AST (14-36) U/L ALT (9-52) U/L 09/06/18 09/06/18 09/06/18 Range/Units 06:08 06:08 11:12 WBC 3.6 L (3.8-10.6) k/uL Plt Count 86 L (150-450) k/uL Sodium 136 L (137-145) mmol/L BUN 18 H (7-17) mg/dL Glucose 267 H (74-99) mg/dL POC Glucose (mg/dL) 268 H (75-99) mg/dL AST 88 H (14-36) U/L ALT 97 H (9-52) U/L Microbiology - Last 24 Hours (Table) 09/03/18 16:05 Blood Culture - Preliminary Blood No Growth after 48 hours Assessment and Plan Assessment: . UTI: Urine and blood culture negative to date. Continue IV ceftriaxone. May switch to Keflex to finish 5 days course when ready for discharge . Sepsis with septic shock on presentation: Resolved with aggressive IV fluid resuscitation . T2DM with hyperglycemia: A1c 13.9. Patient reports compliance with her insulin at home. She was started on insulin drip on presentation and switch to her home insulin regimen. Blood glucose remained not well controlled. I would increase her Novolin R to 30 units 3 times a day with meals. Increase Novolin N to 55 units subcu twice a day . Left lower quadrant pain - CT negative for any renal stones or hydronephrosis , left lower quadrant colonic anastomatic site without proximal dilatation to suggest obstruction. Consult general surgery for further recommendations . Hypovolemic hyponatremia: Improved . Acute kidney injury on presentation now resolved . Underlying PTSD, anxiety, and depression . Underlying essential hypertension. Most of her blood pressure medications on hold except lisinopril given borderline low blood pressure
[2018-09-06 16:32] LABS: Glucose,Whole Blood 230 mg/dL (75-99)
--- NOTE | 2018-09-06 16:44 | P.GSCN ---
History of Present Illness Consult date: 09/06/18 Reason for Consult: Left lower quadrant pain History of present illness: This a 57-year-old female who's had some complaints of left lower quadrant pain. The patient had a CAT scan performed which showed some cirrhosis of the left lobe of the liver. She is a previous history of perforated diverticulitis with colostomy and then subsequent colostomy reversal. She states her pain is a 6 out of 10. Patient known to have an incisional hernia. She is morbidly obesity BMI 49. Past Medical History Past Medical History: Diabetes Mellitus, Hypertension Additional Past Medical History / Comment(s): Brain injury History of Any Multi-Drug Resistant Organisms: None Reported Past Surgical History: Appendectomy, Section, Cholecystectomy, Hysterectomy, Orthopedic Surgery Additional Past Surgical History / Comment(s): Foot, back x 5, arm Past Anesthesia/Blood Transfusion Reactions: No Reported Reaction Additional Past Anesthesia/Blood Transfusion Reaction / Comm: Patient states she is "slow to wake up from anesthesia" Past Psychological History: Anxiety, Depression, PTSD Smoking Status: Never smoker Past Alcohol Use History: None Reported Past Drug Use History: None Reported - Past Family History Mother Family Medical History: COPD, Hypertension Father Family Medical History: Cancer Additional Family Medical History / Comment(s): Colorectal cancer, prostate cancer, lung cancer Medications and Allergies Home Medications Medication Instructions Recorded Confirmed Type Aspirin 325 mg PO DAILY 09/03/18 09/03/18 History Atenolol 100 mg PO DAILY 09/03/18 09/03/18 History Calcium 1000mg 1,000 mg PO DAILY 09/03/18 09/03/18 History Insulin NPH Human Isophane 45 unit SQ BID 09/03/18 09/03/18 History [NovoLIN N] Insulin Regular, Human [NovoLIN R] 25 unit SQ AC-TID 09/03/18 09/03/18 History Insulin Regular, Human [Novolin R] See Protocol SQ AC-TID 09/03/18 09/03/18 History Krill Oil 500 mg PO DAILY 09/03/18 09/03/18 History LORazepam [Ativan] 2 mg PO TID 09/03/18 09/03/18 History Lisinopril [Zestril] 20 mg PO DAILY 09/03/18 09/03/18 History Lisinopril-Hctz 20-12.5 mg 1 tab PO DAILY 09/03/18 09/03/18 History [Zestoretic 20-12.5] QUEtiapine FUMARATE [SEROquel] 600 mg PO HS 09/03/18 09/03/18 History Trileptal(Unknown Dose) 1 tab PO BID 09/03/18 09/03/18 History Vitamin B Complex 1 cap PO DAILY 09/03/18 09/03/18 History Vortioxetine Hydrobromide 5 mg PO BID 09/03/18 09/03/18 History [Brintellix] Zolpidem Tartrate [Ambien] 5 mg PO HS 09/03/18 09/03/18 History metFORMIN HCL 1,000 mg PO BID 09/03/18 09/03/18 History Allergies Allergy/AdvReac Type Severity Reaction Status Date / Time Paper Tape Allergy Rash/Hives Uncoded 09/04/18 02:15 Surgical - Exam Vital Signs Temp Pulse Resp BP Pulse Ox 97.7 F 120 H 20 87/53 99 09/03/18 12:42 09/03/18 12:42 09/03/18 12:42 09/03/18 12:42 09/03/18 12:42 - General well developed, well nourished, no distress - Eyes PERRL - ENT normal pinna - Neck no masses - Respiratory normal expansion - Cardiovascular Rhythm: regular - Abdomen Incisional hernia located near stoma scar. Abdomen: soft, non tender Results - Labs 09/06/18 06:08 09/06/18 06:08 Abnormal Lab Results - Last 24 Hours (Table) 09/05/18 09/05/18 09/06/18 Range/Units 16:44 19:45 05:50 WBC (3.8-10.6) k/uL Plt Count (150-450) k/uL Sodium (137-145) mmol/L BUN (7-17) mg/dL Glucose (74-99) mg/dL POC Glucose (mg/dL) 226 H 293 H 261 H (75-99) mg/dL AST (14-36) U/L ALT (9-52) U/L 09/06/18 09/06/18 09/06/18 Range/Units 06:08 06:08 11:12 WBC 3.6 L (3.8-10.6) k/uL Plt Count 86 L (150-450) k/uL Sodium 136 L (137-145) mmol/L BUN 18 H (7-17) mg/dL Glucose 267 H (74-99) mg/dL POC Glucose (mg/dL) 268 H (75-99) mg/dL AST 88 H (14-36) U/L ALT 97 H (9-52) U/L 09/06/18 Range/Units 16:20 WBC (3.8-10.6) k/uL Plt Count (150-450) k/uL Sodium (137-145) mmol/L BUN (7-17) mg/dL Glucose (74-99) mg/dL POC Glucose (mg/dL) 230 H (75-99) mg/dL AST (14-36) U/L ALT (9-52) U/L Microbiology - Last 24 Hours (Table) 09/03/18 16:05 Blood Culture - Preliminary Blood No Growth after 48 hours Diabetes panel 09/06/18 Range/Units 06:08 Sodium 136 L (137-145) mmol/L Potassium 4.6 (3.5-5.1) mmol/L Chloride 100 (98-107) mmol/L Carbon Dioxide 28 (22-30) mmol/L BUN 18 H (7-17) mg/dL Creatinine 0.66 (0.52-1.04) mg/dL Glucose 267 H (74-99) mg/dL Calcium 9.2 (8.4-10.2) mg/dL AST 88 H (14-36) U/L ALT 97 H (9-52) U/L Alkaline Phosphatase 92 (38-126) U/L Total Protein 6.7 (6.3-8.2) g/dL Albumin 3.5 (3.5-5.0) g/dL Calcium panel 09/06/18 Range/Units 06:08 Calcium 9.2 (8.4-10.2) mg/dL Albumin 3.5 (3.5-5.0) g/dL Pituitary panel 09/06/18 Range/Units 06:08 Sodium 136 L (137-145) mmol/L Potassium 4.6 (3.5-5.1) mmol/L Chloride 100 (98-107) mmol/L Carbon Dioxide 28 (22-30) mmol/L BUN 18 H (7-17) mg/dL Creatinine 0.66 (0.52-1.04) mg/dL Glucose 267 H (74-99) mg/dL Calcium 9.2 (8.4-10.2) mg/dL Adrenal panel 09/06/18 Range/Units 06:08 Sodium 136 L (137-145) mmol/L Potassium 4.6 (3.5-5.1) mmol/L Chloride 100 (98-107) mmol/L Carbon Dioxide 28 (22-30) mmol/L BUN 18 H (7-17) mg/dL Creatinine 0.66 (0.52-1.04) mg/dL Glucose 267 H (74-99) mg/dL Calcium 9.2 (8.4-10.2) mg/dL Total Bilirubin 0.6 (0.2-1.3) mg/dL AST 88 H (14-36) U/L ALT 97 H (9-52) U/L Alkaline Phosphatase 92 (38-126) U/L Total Protein 6.7 (6.3-8.2) g/dL Albumin 3.5 (3.5-5.0) g/dL Assessment and Plan Assessment: Left lower quadrant pain. This may be related to previous scar tissue or her incisional hernia. The patient will be observed. If she has any critical changes we will order a CAT scan with oral contrast.
[2018-09-06 19:47] LABS: Glucose,Whole Blood 273 mg/dL (75-99)
[2018-09-06] MEDS: QUEtiapine 400 MG TAB PO SCH (21:33)
[2018-09-06] MEDS ORDERED: LORazepam 1 MG TAB PO STA (22:24)
[2018-09-07] MEDS: ACETAMINOPHEN TAB 325 MG TAB PO PRN (03:37)
[2018-09-07 05:45] LABS: Glucose,Whole Blood 200 mg/dL (75-99)
[2018-09-07 06:19] LABS: ALT 104 U/L (9-52); AST 91 U/L (14-36); Albumin 3.3 g/dL (3.5-5.0); Alkaline Phosphatase 84 U/L (38-126); Anion Gap 7 mmol/L; Blood Urea Nitrogen 17 mg/dL (7-17); Calcium 9.3 mg/dL (8.4-10.2); Carbon Dioxide 28 mmol/L (22-30); Chloride 103 mmol/L (98-107); Glucose 215 mg/dL (74-99); Potassium 4.7 mmol/L (3.5-5.1); Sodium 138 mmol/L (137-145); Total Bilirubin 0.4 mg/dL (0.2-1.3); Total Protein 6.2 g/dL (6.3-8.2)
[2018-09-07 06:24] LABS: Basophils % (A) 1 %; Eosinophils # (A) 0.1 k/uL (0-0.7); Eosinophils % (A) 3 %; HCT 36.9 % (34.0-46.0); HGB 12.6 gm/dL (11.4-16.0); Lymphocytes # (A) 1.8 k/uL (1.0-4.8); Lymphocytes % (A) 48 %; MCHC 34.1 g/dL (31.0-37.0); Monocytes # (A) 0.2 k/uL (0-1.0); Monocytes % (A) 6 %; Neutrophils # (A) 1.5 k/uL (1.3-7.7); Neutrophils % (A) 39 %; RBC 4.34 m/uL (3.80-5.40); RDW 14.9 % (11.5-15.5); WBC 3.7 k/uL (3.8-10.6)
[2018-09-07 06:28] LABS: Platelet Count 95 k/uL (150-450)
[2018-09-07] MEDS: INSULIN NPH 300 UNIT/3 ML VIAL SQ SCH (07:02)
[2018-09-07] MEDS: INSULIN ASPART 100 UNIT/ML 1 ML 10 ML VIAL SQ SCH (07:02)
[2018-09-07] MEDS: INSULIN REGULAR 100 UNIT/ML VIAL SQ SCH (07:02)
[2018-09-07 08:29] VITALS: BP 115/63; PULSE 70; RESP 17; TEMP 98
[2018-09-07] MEDS: HEPARIN SODIUM,PORCINE 5,000 UNIT/ML 1 ML VIAL SQ SCH (08:30)
[2018-09-07] MEDS: ATENOLOL 50 MG TAB PO SCH (08:30)
[2018-09-07] MEDS: traMADol 50 MG TAB PO SCH (08:30)
[2018-09-07] MEDS: LISINOPRIL 20 MG TAB PO SCH (08:30)
[2018-09-07] MEDS: ASPIRIN 325 MG TAB PO SCH (08:30)
[2018-09-07] MEDS: LORazepam 1 MG TAB PO PRN (08:34)
--- NOTE | 2018-09-07 10:57 | P.DS ---
Providers Date of admission: 09/03/18 16:16 Expected date of discharge: 09/07/18 Attending physician: Dave Wyatt Consults: 09/06/18 11:32 Consult Physician Routine Consulting Provider: Jason De Paz Consult Reason/Comments: LLQ pain abnormal CT Do you want consulting provider notified?: Yes Primary care physician: Narayan Rocha, DO - Discharge Diagnosis(es) (1) Sepsis Current Visit: Yes Status: Acute (2) Acute kidney injury Current Visit: Yes Status: Acute (3) Type 2 diabetes mellitus with hyperglycemia Current Visit: Yes Status: Acute (4) Essential hypertension Current Visit: Yes Status: Acute (5) Hyponatremia Current Visit: Yes Status: Acute (6) Urinary tract infection Current Visit: Yes Status: Acute (7) Hepatic lesion Current Visit: Yes Status: Acute Hospital Course: The patient is a 57-year-old female a past medical history of type 2 diabetes that was admitted with concern for sepsis severely uncontrolled type 2 diabetes with hyperglycemia and acute kidney injury after presenting with symptoms of a UTI abnormal urinalysis and elevated serum lactate at 2.5 with blood sugars 611. She was started on empiric IV antibiotics with IV Rocephin and given aggressive IV fluid hydration and transition to maintenance fluids. With treatment her acute kidney injury and hypovolemic hyponatremia improved as her creatinine trended down from 1.65 back to its normal baseline. The patient was initially started on insulin drip to profound hyperglycemia and later transitioned her home insulin regimen, A1c 13.9 confirmed significantly uncontrolled type 2 diabetes and her insulin regimen was adjusted to Novolin R 30 units subcu every before meals, Novolin N 60 units subcu twice a day which achieved adequate blood sugar control. Patient did complain of left lower quadrant pain CT was negative for any renal stones or hydronephrosis that showed liver was cirrhotic morphology, negative for any suggestion of obstruction. Patient was noted to have a hepatic lesion for recommended abdominal CT for further evaluation. The patient's pain subsequently resolved spontaneously she was subsequently discharged home in stable condition and told to follow-up with her PCP. She was discharged home on Keflex 500 mg by mouth twice a day. She is also instructed to follow up for with her PCP for outpatient workup of her hepatic lesion. This discharge process took approximately 35 minutes Discharge physical Constitutional: No acute distress, conversant, pleasant Eyes: Anicteric sclerae, moist conjunctiva, no lid-lag, PERRLA ENMT: NC/AT,Oropharynx clear, no erythema, exudates Neck:Supple, FROM, no masses, or JVD, No carotid bruits; No thyromegaly Lungs: Clear to auscultation, Clear to percussion, Normal respiratory effort, no accessory muscle use Cardiovascular: Heart regular in rate and rhythm, No murmurs, gallops, or rubs no peripheral edema Abdominal: Soft Nontender, nom distended, no guarding, no rebound or rigidity, Normoactive bowel sounds No hepatomegaly, No splenomegaly, No palpable mass No abdominal wall hernia noted Skin: Normal temperature, tone, texture, turgor, No induration No subcutaneous nodules, No rash, lesions, No ulcers Extremities:No digital cyanosis No clubbing, Pedal pulses intact and symmetrical Radial pulses intact and symmetrical Normal gait and station, No calf tenderness Psychiatric: Alert and oriented to person, place and time, Appropriate affect Intact judgement Neuro: Muscles Strength 5/5 in all 4 extremities, Sensation to light touch grossly present throughout, Cranial nerves II-XII grossly intact. No focal sensory deficits Patient Condition at Discharge: Fair Plan - Discharge Summary Discharge Rx Participant: No New Discharge Prescriptions: New Cephalexin [Keflex] 500 mg PO Q12HR #4 cap Continue Atenolol 100 mg PO DAILY Zolpidem Tartrate [Ambien] 5 mg PO HS Vortioxetine Hydrobromide [Brintellix] 5 mg PO BID QUEtiapine FUMARATE [SEROquel] 600 mg PO HS Lisinopril-Hctz 20-12.5 mg [Zestoretic 20-12.5] 1 tab PO DAILY Insulin Regular, Human [NovoLIN R] See Protocol SQ AC-TID Trileptal(Unknown Dose) 1 tab PO BID Calcium 1000mg 1,000 mg PO DAILY metFORMIN HCL 1,000 mg PO BID Vitamin B Complex 1 cap PO DAILY LORazepam [Ativan] 2 mg PO TID Krill Oil 500 mg PO DAILY Aspirin 325 mg PO DAILY Changed Insulin NPH Human Isophane [NovoLIN N] 60 unit SQ BID #60 vial Insulin Regular, Human [NovoLIN R] 30 unit SQ AC-TID #60 vial Discontinued Lisinopril [Zestril] 20 mg PO DAILY Discharge Medication List Aspirin 325 mg PO DAILY 09/03/18 [History] Atenolol 100 mg PO DAILY 09/03/18 [History] Calcium 1000mg 1,000 mg PO DAILY 09/03/18 [History] Insulin Regular, Human [NovoLIN R] See Protocol SQ AC-TID 09/03/18 [History] Krill Oil 500 mg PO DAILY 09/03/18 [History] LORazepam [Ativan] 2 mg PO TID 09/03/18 [History] Lisinopril-Hctz 20-12.5 mg [Zestoretic 20-12.5] 1 tab PO DAILY 09/03/18 [History ] QUEtiapine FUMARATE [SEROquel] 600 mg PO HS 09/03/18 [History] Trileptal(Unknown Dose) 1 tab PO BID 09/03/18 [History] Vitamin B Complex 1 cap PO DAILY 09/03/18 [History] Vortioxetine Hydrobromide [Brintellix] 5 mg PO BID 09/03/18 [History] Zolpidem Tartrate [Ambien] 5 mg PO HS 09/03/18 [History] metFORMIN HCL 1,000 mg PO BID 09/03/18 [History] Cephalexin [Keflex] 500 mg PO Q12HR #4 cap 09/07/18 [Rx] Insulin NPH Human Isophane [NovoLIN N] 60 unit SQ BID #60 vial 09/07/18 [Rx] Insulin Regular, Human [NovoLIN R] 30 unit SQ AC-TID #60 vial 09/07/18 [Rx] Follow up Appointment(s)/Referral(s): Narayan Rohca DO [Primary Care Provider] - 09/14/18 3:00 pm (Thursday) Robert Mark MD [REFERRING] - 10/06/18 9:30 am (First available appointment.) Patient Instructions/Handouts: Urinary Tract Infection in Women (DC), Diabetic Hyperglycemia (DC) Discharge Disposition: HOME SELF-CARE
--- NOTE | 2018-09-07 11:25 | P.PN ---
Progress Note - Text Progress Note Date: 09/07/18 57-year-old female up in room states being discharged in the abdominal pain has resolved. Denying any left lower quadrant pain. States having a bowel movement and passing gas anxious to be discharged. We'll sign off and re-eval as needed can follow-up in the outpatient setting if needed The above impression and plan of care have been discussed and directed by signing physician. Tania Salter nurse practitioner acting as scribe for signing physician.
[2018-09-07] MEDS ORDERED: INSULIN NPH 300 UNIT/3 ML VIAL SQ SCH (17:30)
== END 2018-09-07 11:36 | disposition home or self-care (01) | DRG 871 ==
LOC: EC 12:36 → 3SCARD 16:16
PROVIDERS: ADMIT Internal Medicine; ATTEND Internal Medicine
DX: A41.9 Sepsis, unspecified organism (principal); R65.21 Severe sepsis with septic shock; E87.1 Hypo-osmolality and hyponatremia; E87.2 Acidosis; N17.9 Acute kidney failure, unspecified; N39.0 Urinary tract infection, site not specified; Z68.42 Body mass index [BMI] 45.0-49.9, adult; E11.65 Type 2 diabetes mellitus with hyperglycemia; E66.01 Morbid (severe) obesity due to excess calories; F32.9 Major depressive disorder, single episode, unspecified; F43.10 Post-traumatic stress disorder, unspecified; G89.29 Other chronic pain; I10 Essential (primary) hypertension; K74.60 Unspecified cirrhosis of liver; Z79.4 Long term (current) use of insulin; Z79.82 Long term (current) use of aspirin; Z79.899 Other long term (current) drug therapy; Z80.0 Family history of malignant neoplasm of digestive organs; Z80.1 Family history of malignant neoplasm of trachea, bronchus and lung; Z82.49 Family history of ischemic heart disease and other diseases of the circulatory system; Z82.5 Family history of asthma and other chronic lower respiratory diseases; Z90.49 Acquired absence of other specified parts of digestive tract; Z90.710 Acquired absence of both cervix and uterus
CPT/HCPCS: 36415; 74150; 80053; 81001; 82009; 83036; 83605; 84484; 85025; 87040; 87086; 93005; 96361; 96365; 99285

== ENCOUNTER 2019-02-12 16:43 | Emergency (ER) | payer MEDICARE ==
[2019-02-12 16:50] VITALS: RESP 18
[2019-02-12] MEDS ORDERED: KETOROLAC 30 MG/ML 1 ML VIAL IM STA (17:12)
[2019-02-12] MEDS ORDERED: MORPHINE SULFATE 4 MG/ML SYRINGE IM STA (17:12)
--- NOTE | 2019-02-12 17:20 | ED ---
Fall HPI - General Chief Complaint: Fall Stated Complaint: Fell/ injury body Time Seen by Provider: 02/12/19 16:58 Source: patient Mode of arrival: wheelchair - History of Present Illness Initial Comments: 58-year-old female patient presents to the emergency department today for evaluation of left-sided neck pain, and right foot and ankle pain after experiencing a fall yesterday. Patient states last evening she was getting out of bed when she felt her knee give out. She states that she fell to the floor landing on her foot. Patient states she did strike her head on the nightstand. She denies any loss of consciousness. States that her biggest concern is her right foot and ankle and which she is experiencing significant pain. Patient states even the lightest touch causes her extreme discomfort. She denies any numbness or tingling to the foot. She does report previous surgery to the foot to remove hematomas. She is also reporting left-sided neck pain radiating into the left shoulder. Denies any numbness or tingling down the upper extremities. She denies any current headache, blurred vision, double vision, or vomiting. States that she does take a baby aspirin daily but denies any other anticoagulant or antiplatelet medications. Patient denies any back pain, chest pain, shortness of breath, dizziness, weakness, abdominal pain, or difficulties with bowel movements or urination. - Related Data Home Medications Medication Instructions Recorded Confirmed Atenolol 100 mg PO DAILY 09/03/18 02/12/19 Calcium 1000mg 1,000 mg PO DAILY 09/03/18 02/12/19 Insulin Regular, Human [NovoLIN R] See Protocol SQ AC-TID 09/03/18 02/12/19 Krill Oil 500 mg PO DAILY 09/03/18 02/12/19 LORazepam [Ativan] 2 mg PO TID 09/03/18 02/12/19 Lisinopril-Hctz 20-12.5 mg 1 tab PO DAILY 09/03/18 02/12/19 [Zestoretic 20-12.5] QUEtiapine FUMARATE [SEROquel] 600 mg PO HS 09/03/18 02/12/19 Vitamin B Complex 1 cap PO DAILY 09/03/18 02/12/19 Vortioxetine Hydrobromide 5 mg PO BID 09/03/18 02/12/19 [Brintellix] Zolpidem Tartrate [Ambien] 5 mg PO HS 09/03/18 02/12/19 metFORMIN HCL 1,000 mg PO BID 09/03/18 02/12/19 Aspirin [[place] Aspirin EC] 81 mg PO DAILY 02/12/19 02/12/19 Furosemide [Lasix] 20 mg PO DAILY 02/12/19 02/12/19 Gabapentin [Neurontin] 800 mg PO TID 02/12/19 02/12/19 Lisinopril [Zestril] 20 mg PO DAILY 02/12/19 02/12/19 OXcarbazepine [Trileptal] 300 mg PO BID 02/12/19 02/12/19 Previous Rx's Medication Instructions Recorded Insulin NPH Human Isophane 60 unit SQ BID #60 vial 09/07/18 [NovoLIN N] Insulin Regular, Human [NovoLIN R] 30 unit SQ AC-TID #60 vial 09/07/18 Ibuprofen [Motrin] 600 mg PO Q8HR PRN #30 tab 02/12/19 Allergies Allergy/AdvReac Type Severity Reaction Status Date / Time hydromorphone [From Dilaudid] AdvReac Nausea & Verified 02/12/19 18:37 Vomiting Paper Tape Allergy Rash/Hives Uncoded 09/04/18 02:15 Review of Systems ROS Statement: Those systems with pertinent positive or pertinent negative responses have been documented in the HPI. ROS Other: All systems not noted in ROS Statement are negative. Past Medical History Past Medical History: Diabetes Mellitus, Hypertension Additional Past Medical History / Comment(s): Brain injury History of Any Multi-Drug Resistant Organisms: None Reported Past Surgical History: Appendectomy, Section, Cholecystectomy, Hysterectomy, Orthopedic Surgery Additional Past Surgical History / Comment(s): Foot, back x 5, arm Past Anesthesia/Blood Transfusion Reactions: No Reported Reaction Additional Past Anesthesia/Blood Transfusion Reaction / Comment(s): Patient states she is "slow to wake up from anesthesia" Past Psychological History: Anxiety, Depression, PTSD Smoking Status: Never smoker Past Alcohol Use History: None Reported Past Drug Use History: None Reported - Past Family History Mother Family Medical History: COPD, Hypertension Father Family Medical History: Cancer Additional Family Medical History / Comment(s): Colorectal cancer, prostate ca ncer, lung cancer General Exam Limitations: no limitations General appearance: alert, in no apparent distress, other (Physical well-dev eloped, well-nourished adult female patient in no acute distress. Vital signs upon presentation are temperature 98.4F, pulse 73, respirations 18, blood pressure 134/74, pulse ox 98% on room air.) Head exam: Present: atraumatic, normocephalic, normal inspection Eye exam: Present: normal appearance, PERRL, EOMI. Absent: scleral icterus, conjunctival injection, nystagmus, periorbital swelling ENT exam: Present: normal exam, normal oropharynx, mucous membranes moist Neck exam: Present: normal inspection, tenderness (Left-sided neck tenderness), full ROM, other (No bony step-off, deformity, or tenderness noted to the midline cervical spine.). Absent: meningismus, lymphadenopathy Respiratory exam: Present: normal lung sounds bilaterally. Absent: respiratory distress, wheezes, rales, rhonchi, stridor Cardiovascular Exam: Present: regular rate, normal rhythm, normal heart sounds. Absent: systolic murmur, diastolic murmur, rubs, gallop, clicks GI/Abdominal exam: Present: soft, normal bowel sounds. Absent: distended, tenderness, guarding, rebound, rigid Extremities exam: Present: normal inspection, full ROM, normal capillary refill, other (Skin to the upper extremities is pink, warm, dry. Cap refills less than 3 seconds. Radial pulses 2+ and equal bilaterally. Skin to the right foot and ankle is pink, warm, dry. Cap refills less than 3 seconds. Patient exhibits tenderness to the entire foot and ankle. Pedal and posttibial pulses are 2+ and equal bilaterally.). Absent: tenderness, pedal edema, joint swelling, calf tenderness Back exam: Present: normal inspection, other (Nontender, no step-off, no deformity to firm midline palpation of the thoracic and lumbar vertebrae. Full range of motion without pain or limitation.). Absent: vertebral tenderness Neurological exam: Present: alert, oriented X3, CN II-XII intact Psychiatric exam: Present: normal affect, normal mood Skin exam: Present: warm, dry, intact, normal color. Absent: rash Course Vital Signs 02/12/19 02/12/19 16:48 19:03 Temperature 98.4 F 98.2 F Pulse Rate 73 72 Respiratory 18 18 Rate Blood Pressure 134/74 138/66 O2 Sat by Pulse 98 98 Oximetry Medical Decision Making - Medical Decision Making 58-year-old female patient presents to the emergency department today for evaluation of neck, left shoulder, and right ankle and foot pain after experiencing a fall last evening. Physical examination did reveal swelling to the right ankle and foot. Neurovascular status was intact to the upper and lower extremities. Patient no other injuries. X-rays of the cervical spine, left shoulder, right ankle, and right foot were obtained. No acute osseous abnormalities were noted. Patient's symptoms consistent with cervical strain and right ankle sprain. She is instructed to rest, ice, elevate the extremity. She is instructed to use Doyle wrap for comfort and support. She is instructed to follow-up with her primary care physician for recheck in 1-2 days. She is instructed to repeat x-rays performed in 7-10 days if pain symptoms persist. Return parameters were discussed in detail. She verbalizes understanding and agrees this plan. - Radiology Data Radiology results: report reviewed, image reviewed 3 views of the right ankle are obtained. Report reviewed in its entirety. Impression by Dr. Yan shows calcaneal spurring. Soft tissue swelling. No fracture seen. There is some spurring at the medial and lateral malleolus consistent with old injury. 6 views of the cervical spine were obtained. Report was reviewed in its e ntirety. Impression by Dr. Yan shows spondylotic changes in lower cervical spine. No fracture seen. 3 views of the right foot are obtained. Report was reviewed in its entirety. Impression by Dr. Yan shows arthritic changes. Soft tissue swelling. No fracture seen. 3 views of the left shoulder obtained. Report was reviewed in its entirety. Impression by Dr. Yan shows no acute abnormality of the left shoulder. Disposition Clinical Impression: Ankle sprain, Cervical strain Disposition: HOME SELF-CARE Condition: Good Instructions (If sedation given, give patient instructions): Cervical Strain (ED), Ankle Sprain (ED) Additional Instructions: Keep foot elevated, use Doyle wrap for comfort and support. Apply ice 20 minutes at a time at least 4 times daily. Follow-up with your primary care physician for recheck in 1-2 days. Have repeat x-rays performed after 7-10 days if pain symptoms persist. Return to the emergency department immediately for any new, worsening, or concerning symptoms. Prescriptions: Ibuprofen [Motrin] 600 mg PO Q8HR PRN #30 tab PRN Reason: Pain Is patient prescribed a controlled substance at d/c from ED?: No Referrals: Narayan Rocha DO [Primary Care Provider] - 1-2 days Time of Disposition: 18:21
--- NOTE | 2019-02-12 18:04 | XR ---
EXAMINATION TYPE: XR cervical spine comp DATE OF EXAM: 02/12/2019 COMPARISON: NONE HISTORY: Pain TECHNIQUE: 6 views FINDINGS: Cervical vertebra have normal alignment. There is hypertrophic anterior spurring from C4 to C7. Exam is limited by the shoulders. Atlantoaxial facet joint is normal. There are no cervical ribs . IMPRESSION: Spondylotic changes in the lower cervical spine. No fracture seen.
--- NOTE | 2019-02-12 18:05 | XR ---
EXAMINATION TYPE: XR ankle complete RT DATE OF EXAM: 02/12/2019 COMPARISON: NONE HISTORY: Swelling and pain TECHNIQUE: 3 views FINDINGS: Ankle mortise is anatomic. There is soft tissue swelling around the ankle joint. There are screws in the talus and the calcaneus. There are moderate plantar and Achilles calcaneal spurs. IMPRESSION: Calcaneal spurring. Soft tissue swelling. No fracture seen. There is some spurring at the medial and lateral malleolus consistent with old injury.
--- NOTE | 2019-02-12 18:06 | XR ---
EXAMINATION TYPE: XR shoulder complete LT DATE OF EXAM: 02/12/2019 COMPARISON: NONE HISTORY: Fall. Pain. TECHNIQUE: 3 views FINDINGS: There is intramedullary dayana fixing the humerus. The shoulder joint appears anatomic. I see no fracture nor dislocation. IMPRESSION: No acute abnormality of the left shoulder.
--- NOTE | 2019-02-12 18:07 | XR ---
EXAMINATION TYPE: XR foot complete RT DATE OF EXAM: 02/12/2019 COMPARISON: NONE HISTORY: Fall. Pain. TECHNIQUE: 3 views FINDINGS: The metatarsals appear intact. There is some spurring at the tarsometatarsal joints. I see no fracture nor dislocation. There is previous surgery at the hindfoot. There is soft tissue swelling of the forefoot. IMPRESSION: Arthritic changes. Soft tissue swelling. No fracture seen.
[2019-02-12] MEDS ORDERED: IBUPROFEN 600 MG STARTER PACK 4 TAB BTL PO STA (18:19)
[2019-02-12] MEDS ORDERED: ACET/COD 300 MG/30 MG STARTER PACK 6 TAB BTL PO STA (18:19)
[2019-02-12 19:05] VITALS: BP 138/66; PULSE 72; TEMP 98.2
== END 2019-02-12 19:02 | disposition home or self-care (01) ==
LOC: EC 16:43
DX: S93.401A Sprain of unspecified ligament of right ankle, initial encounter (principal); S16.1XXA Strain of muscle, fascia and tendon at neck level, initial encounter; E11.9 Type 2 diabetes mellitus without complications; I10 Essential (primary) hypertension; F41.9 Anxiety disorder, unspecified; F32.9 Major depressive disorder, single episode, unspecified; Z79.4 Long term (current) use of insulin; Z79.82 Long term (current) use of aspirin; Z79.899 Other long term (current) drug therapy; Z88.5 Allergy status to narcotic agent; Z91.048 Other nonmedicinal substance allergy status; W19.XXXA Unspecified fall, initial encounter; Y92.009 Unspecified place in unspecified non-institutional (private) residence as the place of occurrence of the external cause
CPT/HCPCS: 72050; 73030; 73610; 73630; 99283; 96372 ×2; J2270; J1885

== ENCOUNTER 2020-02-08 23:53 | Inpatient (IN) | payer MEDICARE ==
[2020-02-09] MEDS ORDERED: SODIUM CHLORIDE 0.9% 500 ML 500 ML IV STA (00:20)
--- NOTE | 2020-02-09 00:28 | ED ---
General Adult HPI - General Chief complaint: Weakness Stated complaint: Fall Time Seen by Provider: 02/09/20 00:07 Source: patient, RN notes reviewed, old records reviewed Mode of arrival: wheelchair Limitations: no limitations - History of Present Illness Initial comments: 59-year-old female presenting for evaluation of generalized weakness. Symptoms have been ongoing for the past 2 or 3 days. She states she's had multiple falls with only complaint of some worsening of her chronic low back pain. No head or neck trauma. Denies anticoagulation use. Denies central chest pain. Denies abdominal pain. She has some nausea. She said she had several episodes of diarrhea which she attributed to a lack of appetite. She has had poor oral intake, she states she still hungry and thirsty. She denies dysuria or hematuria. Denies fever or chills. Reports a mild cough which is chronic in nature. No focal numbness or weakness. She has been ambulatory however she states she has been using her walker more than usual. - Related Data Home Medications Medication Instructions Recorded Confirmed Atenolol 100 mg PO DAILY 09/03/18 02/12/19 Calcium 1000mg 1,000 mg PO DAILY 09/03/18 02/12/19 Insulin Regular, Human [NovoLIN R] See Protocol SQ AC-TID 09/03/18 02/12/19 Krill Oil 500 mg PO DAILY 09/03/18 02/12/19 LORazepam [Ativan] 2 mg PO TID 09/03/18 02/12/19 Lisinopril-Hctz 20-12.5 mg 1 tab PO DAILY 09/03/18 02/12/19 [Zestoretic 20-12.5] QUEtiapine FUMARATE [SEROquel] 600 mg PO HS 09/03/18 02/12/19 Vitamin B Complex 1 cap PO DAILY 09/03/18 02/12/19 Vortioxetine Hydrobromide 5 mg PO BID 09/03/18 02/12/19 [Brintellix] Zolpidem Tartrate [Ambien] 5 mg PO HS 09/03/18 02/12/19 metFORMIN HCL 1,000 mg PO BID 09/03/18 02/12/19 Aspirin [[place] Aspirin EC] 81 mg PO DAILY 02/12/19 02/12/19 Furosemide [Lasix] 20 mg PO DAILY 02/12/19 02/12/19 Gabapentin [Neurontin] 800 mg PO TID 02/12/19 02/12/19 Lisinopril [Zestril] 20 mg PO DAILY 02/12/19 02/12/19 OXcarbazepine [Trileptal] 300 mg PO BID 02/12/19 02/12/19 Previous Rx's Medication Instructions Recorded Insulin NPH Human Isophane 60 unit SQ BID #60 vial 09/07/18 [NovoLIN N] Insulin Regular, Human [NovoLIN R] 30 unit SQ AC-TID #60 vial 09/07/18 Ibuprofen [Motrin] 600 mg PO Q8HR PRN #30 tab 02/12/19 Allergies Allergy/AdvReac Type Severity Reaction Status Date / Time hydromorphone [From Dilaudid] AdvReac Nausea & Verified 02/09/20 00:02 Vomiting Paper Tape Allergy Rash/Hives Uncoded 02/09/20 00:02 Review of Systems ROS Statement: Those systems with pertinent positive or pertinent negative responses have been documented in the HPI. ROS Other: All systems not noted in ROS Statement are negative. Past Medical History Past Medical History: Diabetes Mellitus, Hypertension Additional Past Medical History / Comment(s): Brain injury History of Any Multi-Drug Resistant Organisms: None Reported Past Surgical History: Appendectomy, Section, Cholecystectomy, Hysterectomy, Orthopedic Surgery Additional Past Surgical History / Comment(s): Foot, back x 5, arm Past Anesthesia/Blood Transfusion Reactions: No Reported Reaction Additional Past Anesthesia/Blood Transfusion Reaction / Comment(s): Patient states she is "slow to wake up from anesthesia" Past Psychological History: Anxiety, Depression, PTSD Smoking Status: Never smoker Past Alcohol Use History: None Reported Past Drug Use History: None Reported - Past Family History Mother Family Medical History: COPD, Hypertension Father Family Medical History: Cancer Additional Family Medical History / Comment(s): Colorectal cancer, prostate cancer, lung cancer General Exam Limitations: no limitations General appearance: alert, in no apparent distress Head exam: Present: atraumatic, normocephalic Eye exam: Present: normal appearance, PERRL. Absent: scleral icterus, periorbital swelling, periorbital tenderness ENT exam: Present: mucous membranes dry Neck exam: Present: normal inspection, full ROM. Absent: tenderness, meningis mus Respiratory exam: Present: normal lung sounds bilaterally. Absent: respiratory distress, wheezes Cardiovascular Exam: Present: regular rate, normal rhythm GI/Abdominal exam: Present: soft. Absent: distended, tenderness, guarding, rebound Extremities exam: Present: normal inspection, normal capillary refill. Absent: calf tenderness Back exam: Present: paraspinal tenderness (Minimal paraspinal lumbar muscle spasm) Neurological exam: Present: alert, oriented X3, CN II-XII intact. Absent: motor sensory deficit Skin exam: Present: warm, dry, intact. Absent: cyanosis, diaphoretic Course Vital Signs 02/09/20 02/09/20 00:00 01:59 Temperature 99.1 F Pulse Rate 84 90 Respiratory 18 18 Rate Blood Pressure 146/82 126/75 O2 Sat by Pulse 99 97 Oximetry EKG Findings - EKG Comments: EKG Findings:: EKG: Normal sinus rhythm, low voltage, rate of 93, W[place] interval 166, QRS duration 88, QTC 432, no ST segment elevation. Medical Decision Making - Medical Decision Making 59-year-old female with generalized weakness and decreased appetite. Patient has no focal findings, stable vitals. She has normal CBC, CMP reveals a creatinine of 2.34 with a baseline of 0.8, this represents acute renal failure likely prerenal. Remainder of her workup is unremarkable, x-rays were obtained secondary to fall with no acute traumatic injury in the chest, lumbar spine, or left elbow. Chest x-ray does show some adenopathy which will require close follow-up. Patient is given IV hydration emergency department will be admitted for acute renal failure. Case discussed with Dr. Campos who will accept. - Lab Data Result diagrams: 02/09/20 00:56 02/09/20 00:56 Lab Results 02/09/20 02/09/20 02/09/20 Range/Units 00:56 00:56 00:56 WBC 6.0 (3.8-10.6) k/uL RBC 4.54 (3.80-5.40) m/uL Hgb 12.8 (11.4-16.0) gm/dL Hct 39.4 (34.0-46.0) % MCV 86.8 (80.0-100.0) fL MCH 28.1 (25.0-35.0) pg MCHC 32.4 (31.0-37.0) g/dL RDW 14.5 (11.5-15.5) % Plt Count 117 L (150-450) k/uL Neutrophils % 62 % Lymphocytes % 25 % Monocytes % 6 % Eosinophils % 3 % Basophils % 1 % Neutrophils # 3.7 (1.3-7.7) k/uL Lymphocytes # 1.5 (1.0-4.8) k/uL Monocytes # 0.4 (0-1.0) k/uL Eosinophils # 0.2 (0-0.7) k/uL Basophils # 0.1 (0-0.2) k/uL PT 11.0 (9.0-12.0) sec INR 1.1 (<1.2) APTT 24.3 (22.0-30.0) sec Sodium 135 L (137-145) mmol/L Potassium 5.2 H (3.5-5.1) mmol/L Chloride 93 L (98-107) mmol/L Carbon Dioxide 31 H (22-30) mmol/L Anion Gap 11 mmol/L BUN 56 H (7-17) mg/dL Creatinine 2.34 H (0.52-1.04) mg/dL Est GFR (CKD-EPI)AfAm 26 (>60 ml/min/1.73 sqM) Est GFR (CKD-EPI)NonAf 22 (>60 ml/min/1.73 sqM) Glucose 193 H (74-99) mg/dL Plasma Lactic Acid Feroz (0.7-2.0) mmol/L Calcium 9.6 (8.4-10.2) mg/dL Magnesium 1.8 (1.6-2.3) mg/dL Total Bilirubin 0.4 (0.2-1.3) mg/dL AST 50 H (14-36) U/L ALT 51 H (4-34) U/L Alkaline Phosphatase 96 (38-126) U/L Total Protein 7.6 (6.3-8.2) g/dL Albumin 4.4 (3.5-5.0) g/dL 02/09/20 Range/Units 00:56 WBC (3.8-10.6) k/uL RBC (3.80-5.40) m/uL Hgb (11.4-16.0) gm/dL Hct (34.0-46.0) % MCV (80.0-100.0) fL MCH (25.0-35.0) pg MCHC (31.0-37.0) g/dL RDW (11.5-15.5) % Plt Count (150-450) k/uL Neutrophils % % Lymphocytes % % Monocytes % % Eosinophils % % Basophils % % Neutrophils # (1.3-7.7) k/uL Lymphocytes # (1.0-4.8) k/uL Monocytes # (0-1.0) k/uL Eosinophils # (0-0.7) k/uL Basophils # (0-0.2) k/uL PT (9.0-12.0) sec INR (<1.2) APTT (22.0-30.0) sec Sodium (137-145) mmol/L Potassium (3.5-5.1) mmol/L Chloride (98-107) mmol/L Carbon Dioxide (22-30) mmol/L Anion Gap mmol/L BUN (7-17) mg/dL Creatinine (0.52-1.04) mg/dL Est GFR (CKD-EPI)AfAm (>60 ml/min/1.73 sqM) Est GFR (CKD-EPI)NonAf (>60 ml/min/1.73 sqM) Glucose (74-99) mg/dL Plasma Lactic Acid Feroz 1.7 (0.7-2.0) mmol/L Calcium (8.4-10.2) mg/dL Magnesium (1.6-2.3) mg/dL Total Bilirubin (0.2-1.3) mg/dL AST (14-36) U/L ALT (4-34) U/L Alkaline Phosphatase (38-126) U/L Total Protein (6.3-8.2) g/dL Albumin (3.5-5.0) g/dL Disposition Clinical Impression: Acute renal failure Disposition: ADMITTED IP TO THIS [facility] Condition: Stable Is patient prescribed a controlled substance at d/c from ED?: No Referrals: Arleen Richardson MD [Primary Care Provider] - 1-2 days Decision to Admit Reason: Admit from EC Decision Date: 02/09/20 Decision Time: 02:25
[2020-02-09 01:11] LABS: Basophils # (A) 0.1 k/uL (0-0.2); Basophils % (A) 1 %; Eosinophils # (A) 0.2 k/uL (0-0.7); Eosinophils % (A) 3 %; HCT 39.4 % (34.0-46.0); HGB 12.8 gm/dL (11.4-16.0); Lymphocytes # (A) 1.5 k/uL (1.0-4.8); Lymphocytes % (A) 25 %; MCH 28.1 pg (25.0-35.0); MCHC 32.4 g/dL (31.0-37.0); MCV 86.8 fL (80.0-100.0); Mean Platelet Volume 8.6; Monocytes # (A) 0.4 k/uL (0-1.0); Monocytes % (A) 6 %; Neutrophils # (A) 3.7 k/uL (1.3-7.7); Neutrophils % (A) 62 %; Platelet Count 117 k/uL (150-450); RBC 4.54 m/uL (3.80-5.40); RDW 14.5 % (11.5-15.5)
[2020-02-09 01:24] LABS: Albumin 4.4 g/dL (3.5-5.0); Calcium 9.6 mg/dL (8.4-10.2); Magnesium 1.8 mg/dL (1.6-2.3); Potassium 5.2 mmol/L (3.5-5.1); Total Bilirubin 0.4 mg/dL (0.2-1.3); Total Protein 7.6 g/dL (6.3-8.2)
[2020-02-09 01:26] LABS: INR 1.1 (<1.2); Partial Thromboplastin Time 24.3 sec (22.0-30.0)
--- NOTE | 2020-02-09 01:29 | XR ---
EXAMINATION TYPE: XR chest 2V DATE OF EXAM: 02/09/2020 COMPARISON: 12/13/2012 HISTORY: Back pain shoulder pain TECHNIQUE: FINDINGS: Heart is normal. There is some widening of the mediastinum on the right side. There are no hilar masses. Lungs are clear of infiltrate. There is no pleural effusion. IMPRESSION: There is possible new mediastinal adenopathy compared to old exam. Follow-up recommended. No acute lung disease. No thoracic compression fracture.
--- NOTE | 2020-02-09 01:32 | XR ---
EXAMINATION TYPE: XR lumbar spine 2 or 3V DATE OF EXAM: 02/09/2020 COMPARISON: 12/13/2012 HISTORY: Back pain TECHNIQUE: 3 views FINDINGS: Vertebra have normal alignment. There is old posterior fusion surgery at L4-5. There is mod erate narrowing of L5-S1 disc. There is less severe narrowing at L3-4 and L4-5 discs. I see no acute compression fracture. The sacroiliac joints are intact. IMPRESSION: Spondylotic changes in previous surgery. No acute bony abnormality. No significant advers e change compared to old exam.
--- NOTE | 2020-02-09 01:41 | XR ---
EXAMINATION TYPE: XR elbow complete LT DATE OF EXAM: 02/09/2020 COMPARISON: NONE HISTORY: Elbow pain TECHNIQUE: 3 views FINDINGS: I see no fracture nor dislocation. Joint spaces are normal. There is intramedullary dayana and transverse screw in the distal humerus. IMPRESSION: No acute abnormality of the left elbow. Joint spaces are fairly normal.
[2020-02-09] MEDS ORDERED: SODIUM CHLORIDE 0.9% 1,000 ML IV ONE (01:49)
[2020-02-09] MEDS: SODIUM CHLORIDE 0.9% 1,000 ML IV SCH ×3 (01:58→17:20)
[2020-02-09] MEDS ORDERED: NALOXONE 0.4 MG/ML 1 ML VIAL IV PRN (02:09)
[2020-02-09 02:17] LABS: Appearance,Urine Clear (Clear); Bacteria,Urine Occasional /hpf; Bilirubin,Urine Negative (Negative); Blood,Urine Negative (Negative); Color,Urine Yellow; Glucose,Urine (UA) Negative (Negative); Hyaline Casts,Urine 4 /lpf (0-2); Ketones,Urine Negative (Negative); Leukocyte Esterase,Urine Small (Negative); Mucus,Urine Rare /hpf; Nitrite,Urine Negative (Negative); Protein,Urine Trace (Negative); RBC,Urine <1 /hpf (0-5); Specific Gravity,Urine 1.014 (1.001-1.035); Squamous Epithelial Cell,Urine 1 /hpf (0-4); Urobilinogen,Urine <2.0 mg/dL (<2.0); WBC,Urine 2 /hpf (0-5)
--- NOTE | 2020-02-09 03:09 | P.HPIM ---
History of Present Illness H&P Date: 02/09/20 Chief Complaint: generalized weakness 59-year-old female with hypertension controlled with medications, diabetes mellitus on insulin A1C 8.2 08/2019 She is coming in complaining of generalized weakness been going on for 3-5 days associated with multiple falls over past day and a half denies any head injury, denies being on any blood thinners, but reports worsening chronic low back pain and some left elbow pain without limitaiton in range of motion . She reports having frequent diarrhea and poor by mouth intake and decreased appetite for 5 days now, she is compliant with her meds and continued to take her diuretics and noticed concerntrated dark urine with decrease urine output. Otherwise she denies any fevers or chills, denies any chest pain or trouble breathing denies any changes in her mild chronic cough, denies any changes in taste or smell sensation, denies any abdominal pain nausea or vomiting, denies any changes in her urinary habits denies any dysuria or hematuria. In the ED she was found to be in acute kidney injury was admitted for further care Review of Systems Pertinent positives as noted in HPI. All other systems were reviewed and are negative Past Medical History Past Medical History: Diabetes Mellitus, Hypertension Additional Past Medical History / Comment(s): Brain injury History of Any Multi-Drug Resistant Organisms: None Reported Past Surgical History: Appendectomy, Section, Cholecystectomy, Hysterectomy, Orthopedic Surgery Additional Past Surgical History / Comment(s): Foot, back x 5, arm Past Anesthesia/Blood Transfusion Reactions: No Reported Reaction Additional Past Anesthesia/Blood Transfusion Reaction / Comment(s): Patient states she is "slow to wake up from anesthesia" Past Psychological History: Anxiety, Depression, PTSD Smoking Status: Never smoker Past Alcohol Use History: None Reported Past Drug Use History: None Reported - Past Family History Mother Family Medical History: COPD, Hypertension Father Family Medical History: Cancer Additional Family Medical History / Comment(s): Colorectal cancer, prostate cancer, lung cancer Medications and Allergies Home Medications Medication Instructions Recorded Confirmed Type Atenolol 100 mg PO DAILY 09/03/18 02/12/19 History Calcium 1000mg 1,000 mg PO DAILY 09/03/18 02/12/19 History Insulin Regular, Human [NovoLIN R] See Protocol SQ AC-TID 09/03/18 02/12/19 History Krill Oil 500 mg PO DAILY 09/03/18 02/12/19 History LORazepam [Ativan] 2 mg PO TID 09/03/18 02/12/19 History Lisinopril-Hctz 20-12.5 mg 1 tab PO DAILY 09/03/18 02/12/19 History [Zestoretic 20-12.5] QUEtiapine FUMARATE [SEROquel] 600 mg PO HS 09/03/18 02/12/19 History Vitamin B Complex 1 cap PO DAILY 09/03/18 02/12/19 History Vortioxetine Hydrobromide 5 mg PO BID 09/03/18 02/12/19 History [Brintellix] Zolpidem Tartrate [Ambien] 5 mg PO HS 09/03/18 02/12/19 History metFORMIN HCL 1,000 mg PO BID 09/03/18 02/12/19 History Insulin NPH Human Isophane 60 unit SQ BID #60 vial 09/07/18 02/12/19 Rx [NovoLIN N] Insulin Regular, Human [NovoLIN R] 30 unit SQ AC-TID #60 vial 09/07/18 02/12/19 Rx Aspirin [Barry Aspirin EC] 81 mg PO DAILY 02/12/19 02/12/19 History Furosemide [Lasix] 20 mg PO DAILY 02/12/19 02/12/19 History Gabapentin [Neurontin] 800 mg PO TID 02/12/19 02/12/19 History Ibuprofen [Motrin] 600 mg PO Q8HR PRN #30 tab 02/12/19 Rx Lisinopril [Zestril] 20 mg PO DAILY 02/12/19 02/12/19 History OXcarbazepine [Trileptal] 300 mg PO BID 02/12/19 02/12/19 History Allergies Allergy/AdvReac Type Severity Reaction Status Date / Time hydromorphone [From Dilaudid] AdvReac Nausea & Verified 02/09/20 00:02 Vomiting Paper Tape Allergy Rash/Hives Uncoded 02/09/20 00:02 Physical Exam Vitals: Vital Signs Temp Pulse Resp BP Pulse Ox 02/09/20 01:59 90 18 126/75 97 02/09/20 00:00 99.1 F 84 18 146/82 99 Intake and Output 02/08/20 02/08/20 02/09/20 14:59 22:59 06:59 Other: Weight 138.346 kg Constitutional: No acute distress, conversant, pleasant Eyes: Anicteric sclerae, moist conjunctiva, no lid-lag Pupils equal round reactive to light ENMT: NC/AT Oropharynx clear, no erythema, exudates Neck: Supple, FROM, no masses, or JVD No carotid bruits No thyromegaly Lungs: Clear to auscultation Clear to percussion Normal respiratory effort, no accessory muscle use Cardiovascular: Heart regular in rate and rhythm, No murmurs, gallops, or rubs No peripheral edema Abdominal: Soft Nontender, no guarding, rebound or rigidity Abdomen moving with respiration Normoactive bowel sounds No hepatomegaly, No splenomegaly No palpable mass No abdominal wall hernia noted Skin: Normal temperature, tone, texture, turgor No induration No subcutaneous nodules No rash, lesions No ulcers Extremities: No digital cyanosis No clubbing Pedal pulses intact and symmetrical Radial pulses intact and symmetrical No calf tenderness Psychiatric: Alert and oriented to person, place and time Appropriate affect fair judgement Neuro Muscles Strength 5/5 in all 4 extremities Sensation to light touch grossly present throughout Cranial nerves II-XII grossly intact No focal sensory deficits Lymphatics: no palpable cervical or supraclavicular , or inguinal lymph nodes Results CBC & Chem 7: 02/09/20 00:56 02/09/20 00:56 Labs: Abnormal Lab Results - Last 24 Hours (Table) 02/09/20 02/09/20 Range/Units 00:56 00:56 Plt Count 117 L (150-450) k/uL Sodium 135 L (137-145) mmol/L Potassium 5.2 H (3.5-5.1) mmol/L Chloride 93 L (98-107) mmol/L Carbon Dioxide 31 H (22-30) mmol/L BUN 56 H (7-17) mg/dL Creatinine 2.34 H (0.52-1.04) mg/dL Glucose 193 H (74-99) mg/dL AST 50 H (14-36) U/L ALT 51 H (4-34) U/L Assessment and Plan Assessment: 59-year-old female with hypertension controlled with medications, diabetes mellitus on insulin with A1c 8.2 from August 2019, comes in due to generalized weakness diarrhea loss of appetite and frequent falls. Patient was found to be in acute kidney injury admitted as inpatient with anticipated length of stay more than 2 mid nights Acute kidney injury most likely secondary to prerenal ATN Acute gastroenteritis with loss of appetite and diarrhea Generalized weakness secondary to above Frequent falling Thrombocytopenia Chest x-ray incidental finding of mediastinal adenopathy consider outpatient follow-up Chronic conditions Hypertension controlled, resume home meds Diabetes mellitus A1C 8.2 08/2019 , on insulin Plan IV fluid hydration Supportive care Symptomatic control Fall precautions PT/OT Follow-up potassium Resume home blood pressure medications hold BREANN inhibitor due to a caring Avoid nephrotoxic meds Insulin sliding scale and basal insulin Verify home meds Follow-up electrolytes and renal function DVT prophylaxis heparin subcu 3 times a day CODE STATUS: Full code Discussed with: Patient, ER Anticipated length of stay more than [address]: Home A total of 75 minutes was spent on the care of this complex patient more than 50% of the time was spent in counseling and care coordination.
[2020-02-09 03:43] LABS: Glucose,Whole Blood 166 mg/dL (75-99)
[2020-02-09] MEDS: QUEtiapine 200 MG TAB PO SCH ×2 (04:22→21:42)
[2020-02-09] MEDS: INSULIN ASPART (NovoLOG) 100 UNIT/ML VIAL SQ SCH ×5 (04:22→21:40)
[2020-02-09] MEDS: GABAPENTIN 400 MG CAP PO SCH ×4 (04:22→21:42)
[2020-02-09] MEDS: VORTIOXETINE HYDROBROMIDE 10 MG TABLET PO SCH ×3 (04:22→21:41)
[2020-02-09] MEDS: ACETAMINOPHEN TAB 325 MG TAB PO PRN (04:23)
[2020-02-09] MEDS: ZOLPIDEM 5 MG TAB PO SCH ×2 (04:23→21:42)
[2020-02-09 07:04] LABS: Glucose,Whole Blood 179 mg/dL (75-99)
[2020-02-09] MEDS ORDERED: INSULIN ASPART (NovoLOG) 100 UNIT/ML VIAL SQ SCH (07:30)
[2020-02-09] MEDS: HEPARIN SODIUM,PORCINE 5,000 UNIT/ML 1 ML VIAL SQ SCH ×3 (08:35→21:42)
[2020-02-09] MEDS: OXcarbazepine 300 MG TAB PO SCH ×2 (08:35→21:43)
[2020-02-09] MEDS: LORazepam 1 MG TAB PO PRN (08:36)
[2020-02-09] MEDS: INSULIN DETEMIR (LEVEMIR) 100 UNIT/ML SYR SQ SCH (08:37)
[2020-02-09] MEDS: ASPIRIN 81 MG PO SCH (08:37)
[2020-02-09] MEDS ORDERED: ATENOLOL 50 MG TAB PO SCH (09:00)
[2020-02-09 11:24] LABS: Glucose,Whole Blood 265 mg/dL (75-99)
--- NOTE | 2020-02-09 13:51 | CDI ---
Documentation Clarification Form Date: 02/09/2020 01:28:11 PM From: Destini Vicente RN CCDS Admit Date: 02/09/2020 02:09:00 AM Patient Name: Candelaria Tobar Visit Number: [id number] Discharge Date: ATTENTION: The Clinical Documentation Specialists (CDI) and [facility] Coding Staff appreciate your assistance in clarifying documentation. Please respond to the clarification below the line at the bottom and electronically sign. The CDI & [facility] Coding staff will review the response and follow-up if needed. Please note: Queries are made part of the Legal Health Record. If you have any questions, please contact the author of this message via ITS. Dr. Yasmeen Angel Coding guidelines do not allow coding professionals to code based on laboratory results; therefore, your input is requested. The COVID-19 test obtained on 02/08 was reported as Negative on 02/08 Patient history/risk factors: 59-year-old female presented to the hospital with multiple falls generalized weakness and diarrhea. Medical history DM and HTN Clinical Indicators Patient reported diarrhea, nausea, lack of appetite and mild chronic cough. 02/08 CXR possible new mediastinal adenopathy compared to old exam. 02/08 VS in ED Triage: T: 99.1, P: 84, R 18, Sat 99% on room air 02/08 WBC 6.0 Treatment: In order to capture the severity of condition, please clarify the COVID-19 status: COVID-19 ruled out Other, please specify (Last Form Revision: December 2019) COVID test is negative MTDD
[2020-02-09] MEDS ORDERED: TETRAHYDROZOLINE 0.05% OPHTH DROPS 15 ML BTL BOTH EYES PRN (15:50)
[2020-02-09] MEDS: MORPHINE SULFATE 4 MG/ML SYRINGE IV PRN ×2 (16:05→22:06)
[2020-02-09] MEDS ORDERED: IPRATROPIUM-ALBUTEROL 3 ML NEB INHALATION PRN (22:37)
[2020-02-09] MEDS ORDERED: BENZONATATE 100 MG CAP PO PRN (22:37)
[2020-02-10] MEDS: SODIUM CHLORIDE 0.9% 1,000 ML IV SCH ×3 (06:15→17:25)
[2020-02-10 07:28] LABS: Basophils % (A) 1 %; Eosinophils # (A) 0.3 k/uL (0-0.7); Eosinophils % (A) 3 %; HGB 11.4 gm/dL (11.4-16.0); Hypochromasia Marked; Lymphocytes # (A) 3.3 k/uL (1.0-4.8); Lymphocytes % (A) 42 %; MCH 29.1 pg (25.0-35.0); MCHC 31.7 g/dL (31.0-37.0); MCV 91.6 fL (80.0-100.0); Mean Platelet Volume 8.6; Monocytes # (A) 0.6 k/uL (0-1.0); Monocytes % (A) 8 %; Neutrophils # (A) 3.3 k/uL (1.3-7.7); Neutrophils % (A) 43 %; Platelet Count 120 k/uL (150-450); RBC 3.93 m/uL (3.80-5.40); RDW 14.4 % (11.5-15.5); WBC 7.7 k/uL (3.8-10.6)
[2020-02-10 07:43] LABS: Albumin 3.4 g/dL (3.5-5.0); Calcium 7.8 mg/dL (8.4-10.2); Total Bilirubin 0.3 mg/dL (0.2-1.3); Total Protein 6.2 g/dL (6.3-8.2)
[2020-02-10 07:45] LABS: Potassium 6.2 mmol/L (3.5-5.1)
[2020-02-10 07:46] LABS: Glucose,Whole Blood 223 mg/dL (75-99)
[2020-02-10 07:47] LABS: Glucose,Whole Blood 187 mg/dL (75-99)
[2020-02-10] MEDS ORDERED: DEXTROSE 50% SYRINGE 50 ML IVP STA ×2 (07:59→12:06)
[2020-02-10] MEDS ORDERED: INSULIN REGULAR 100 UNIT/ML VIAL IV ONE ×2 (07:59→12:15)
[2020-02-10] MEDS ORDERED: SODIUM CHLORIDE 0.9% 500 ML 500 ML IV ONE (08:00)
[2020-02-10 08:02] LABS: Glucose,Whole Blood 212 mg/dL (75-99)
[2020-02-10] MEDS: INSULIN DETEMIR (LEVEMIR) 100 UNIT/ML SYR SQ SCH (08:18)
[2020-02-10] MEDS: INSULIN ASPART (NovoLOG) 100 UNIT/ML VIAL SQ SCH ×4 (08:19→22:13)
[2020-02-10] MEDS: ASPIRIN 81 MG PO SCH (08:20)
[2020-02-10] MEDS: GABAPENTIN 400 MG CAP PO SCH (08:20)
[2020-02-10] MEDS: OXcarbazepine 300 MG TAB PO SCH (08:22)
[2020-02-10] MEDS: HEPARIN SODIUM,PORCINE 5,000 UNIT/ML 1 ML VIAL SQ SCH ×2 (08:23→17:24)
[2020-02-10] MEDS ORDERED: CALCIUM GLUCONATE 1 GM in SODIUM CHLORIDE 0.9% 100 ML IVPB ONE (08:30)
[2020-02-10] MEDS: VORTIOXETINE HYDROBROMIDE 10 MG TABLET PO SCH (08:34)
[2020-02-10] MEDS ORDERED: HYDROcodone/APAP 5-325MG 1 EACH TAB PO PRN (09:12)
--- NOTE | 2020-02-10 10:06 | US ---
EXAMINATION TYPE: US kidneys/renal and bladder DATE OF EXAM: 02/10/2020 COMPARISON: NONE CLINICAL HISTORY: alex. EXAM MEASUREMENTS: Right Kidney: 11.5 x 5.2 x 4.9 cm Left Kidney: 110.1 x 5.0 x 5.4 cm Morbidly obese patient, done portably. Right Kidney: No hydronephrosis or masses seen Left Kidney: cyst noted measuring 2.4 x 2.6 x 2.8cm Bladder: not visualized There is no evidence for hydronephrosis at this point in time. No nephrolithiasis is seen. The urina ry bladder is poorly distended and not evaluated. Bilateral ureteral jets are not seen. IMPRESSION: No hydronephrosis or nephrolithiasis of either kidney. Left renal cyst measures 2.8 cm.
--- NOTE | 2020-02-10 10:53 | P.NPCON ---
History of Present Illness - Reason for Consult acute renal failure - History of Present Illness Reason for consultation: Acute kidney injury History of present illness: Patient is a 59-year-old female seen in renal consultation for acute kidney injury. Patient's baseline creatinine appears to be near 1. Her creatinine is a 08/25/2019 was 0.8. It was elevated at 2.3 for this admission and is 3.03 tod ay. She presented to the hospital with generalized weakness and falls. Patient states she denies losing any consciousness bilateral legs just gave out on her and she was unable to get back up. She also admits to vomiting for the last 5 days or so. Oral intake has been poor. She denies regular use of nonsteroidals. Denies any hematuria or dysuria. Patient does have long- standing history of diabetes mellitus. She was taking Lasix, lisinopril as well as hydrochlorothiazide at home. Additionally she was also on potassium supplementation and metformin. Her blood pressures low the systolic 90s. Lisinopril and diuretics are held. She is receiving normal saline at 1 25 mL an hour. Straight catheterization was done this morning and 800 mL of urine was obtained. She does not have a Watts catheter. Kidney ultrasound revealed no evidence of hydronephrosis. No fever or chills. Denies family history of renal disease. Vital signs are stable. General: The patient appeared well nourished and normally developed. HEENT: Head exam is unremarkable. Neck is without jugular venous distension. LUNGS: Lungs are clear to auscultation and percussion. Breath sounds decreased. HEART: Rate and Rhythm are regular. ABDOMEN: Distention noted. Nontender. Obese. EXTREMITITES: No clubbing, cyanosis, or edema. Past Medical History Past Medical History: Diabetes Mellitus, Hypertension Additional Past Medical History / Comment(s): Brain injury History of Any Multi-Drug Resistant Organisms: None Reported Past Surgical History: Appendectomy, Section, Cholecystectomy, H ysterectomy, Orthopedic Surgery Additional Past Surgical History / Comment(s): Foot, back x 5, arm Past Anesthesia/Blood Transfusion Reactions: No Reported Reaction Additional Past Anesthesia/Blood Transfusion Reaction / Comment(s): Patient states she is "slow to wake up from anesthesia" Past Psychological History: Anxiety, Depression, PTSD Smoking Status: Never smoker Past Alcohol Use History: None Reported Past Drug Use History: None Reported - Past Family History Mother Family Medical History: COPD, Hypertension Father Family Medical History: Cancer Additional Family Medical History / Comment(s): Colorectal cancer, prostate cancer, lung cancer Medications and Allergies Home Medications Medication Instructions Recorded Confirmed Type Calcium 1000mg 1,000 mg PO DAILY 09/03/18 02/09/20 History Krill Oil 500 mg PO DAILY 09/03/18 02/09/20 History LORazepam [Ativan] 2 mg PO TID 09/03/18 02/09/20 History Lisinopril-Hctz 20-12.5 mg 1 tab PO DAILY 09/03/18 02/09/20 History [Zestoretic 20-12.5] QUEtiapine FUMARATE [SEROquel] 800 mg PO HS 09/03/18 02/09/20 History Vitamin B Complex 1 cap PO DAILY 09/03/18 02/09/20 History Vortioxetine Hydrobromide 10 mg PO BID 09/03/18 02/09/20 History [Brintellix] metFORMIN HCL 1,000 mg PO BID 09/03/18 02/09/20 History Aspirin [[place] Aspirin EC] 81 mg PO DAILY 02/12/19 02/09/20 History Furosemide [Lasix] 20 mg PO DAILY 02/12/19 02/09/20 History Gabapentin [Neurontin] 800 mg PO BID 02/12/19 02/09/20 History Lisinopril [Zestril] 20 mg PO DAILY 02/12/19 02/09/20 History Ascorbic Acid [Vitamin C] 1,000 mg PO DAILY 02/09/20 02/09/20 History Insulin NPH Human Isophane See Protocol SQ BID 02/09/20 02/09/20 History [NovoLIN N] Insulin Regular, Human [NovoLIN R] See Protocol SQ BID 02/09/20 02/09/20 History Potassium Chloride ER [K-Dur 10] 10 meq PO DAILY 02/09/20 02/09/20 History Zolpidem [Ambien] 10 mg PO HS PRN 02/09/20 02/09/20 History Allergies Allergy/AdvReac Type Severity Reaction Status Date / Time hydromorphone [From Dilaudid] AdvReac Nausea & Verified 02/09/20 08:37 Vomiting Paper Tape Allergy Rash/Hives Uncoded 02/09/20 00:02 Physical Exam Vitals: Vital Signs Temp Pulse Resp BP Pulse Ox 02/10/20 05:00 98.2 F 57 L 20 95/65 96 02/09/20 21:00 97.9 F 72 20 97/61 96 02/09/20 16:46 97 02/09/20 16:00 70 17 02/09/20 11:56 98.3 F 70 17 94/51 100 Intake and Output 02/09/20 02/10/20 02/10/20 22:59 06:59 14:59 Output Total 800 800 Balance -800 -800 Output: Urine 800 800 Other: # Voids 1 # Bowel Movements 1 Results - Lab Results Most recent lab results Calcium 7.8 mg/dL (8.4-10.2) L 02/10/20 06:15 Magnesium 2.0 mg/dL (1.6-2.3) 02/10/20 06:15 02/10/20 06:15 02/10/20 06:15 Assessment and Plan Plan: Assessment: 1. Acute kidney injury secondary to urinary retention. Also likely component of ATN from n/v, hypotension and use of diuretics and lisinopril. Creatinine 3.03 today. No hydronephrosis noted on kidney ultrasound. 2. Hyperkalemia secondary to acute kidney injury and urinary retention. 3. Urinary retention. 4. Insulin-dependent diabetes mellitus. 5. Benign hypertension. Currently on the lower side. Plan: Decreased normal saline to 75 mL an hour. Check bladder scan now and perform straight catheterization. If more than 300 mL of urine obtained, insert Watts catheter. She received 10 units of IV regular insulin with an amp of D50 this morning. Repeat potassium level pending. Avoid nephrotoxins. Continue to hold lisinopril and diuretics. Thank you for the consultation. I will continue to follow the patient with you during her hospital stay.
[2020-02-10 11:42] LABS: Calcium 8.2 mg/dL (8.4-10.2); Potassium 5.6 mmol/L (3.5-5.1)
--- NOTE | 2020-02-10 16:13 | P.PN ---
Subjective Progress Note Date: 02/10/20 (delayed charting seen at 0900) Principal diagnosis: Diarrhea Patient is a 59-year-old female with hypertension, diabetes mellitus with A1c 8.2 in August 2019, prior brain injury who presented to the hospital secondary to generalized weakness with multiple falls. In the ER she underwent an extensive evaluation. On arrival her vital signs were within normal limits. Laboratory analysis demonstrated was 117, sodium 135, potassium 5.2, BUN 56, creatinine 2.34, glucose 193, AST 50, ALT 51, urinalysis was benign, C. diff negative, coronavirus PCR negative. Chest x-ray showed possible mild mediastinal adenopathy compared to old examined follow-up was recommended, lumbar spine x-ray showed spondylitic changes with previous surgery, elbow x-ray showed no acute abnormality. She was diagnosed with acute renal failure and started on IV fluids. She was admitted for further monitoring. On the morning of 02/09 secondary nursing with potassium of 6.2. Order insulin, glucose, calcium gluconate, and normal saline bolus. Also ordered a renal ultrasound. Patient seen and examined at bedside. She states she had had 2 bowel movements overnight, no abdominal pain, no nausea, no vomiting, still with loss of appetite. She reports that she has felt very weak and continues to feel this way. Objective - Vital Signs Vital signs: Vital Signs Temp 99.4 F 02/10/20 12:45 Pulse 60 02/10/20 12:45 Resp 17 02/10/20 12:45 BP 110/67 02/10/20 12:45 Pulse Ox 95 02/10/20 12:45 Intake & Output 02/09/20 02/10/20 02/10/20 18:59 06:59 18:59 Intake Total 1000 1050 Output Total 1600 Balance 1000 -1600 1050 Intake: Intake, IV Titration 1000 1050 Amount Calcium Gluconate 1 gm In 100 Sodium Chloride 0.9% 100 ml @ 100 mls/hr IVPB ONCE ONE Rx#:[id number] Sodium Chloride 0.9% 1, 1000 450 000 ml @ 75 mls/hr IV . [id number] [facility] Rx#:[id number] Sodium Chloride 0.9% 500 500 ml 500 ml @ 999 mls/hr IV .Q31M ONE Rx#:[id number] Output: Urine 1600 Other: # Voids 1 # Bowel Movements 1 - Exam General: non toxic, no distress, appears older than stated age, obese Derm: warm, dry Head: atraumatic, normocephalic, symmetric Eyes: EOMI, no lid lag, anicteric sclera Mouth: no lip lesion, mucus membranes moist Cardiovascular: S1S2 reg, no murmur, positive posterior tibial pulse bilateral, Lungs:Decreased bs bilateral, no rhonchi, no rales , no accessory muscle use Abdominal: soft, + tender to palpation diffusely, no guarding, no appreciable organomegaly Ext: no gross muscle atrophy, trace edema, no contractures Neuro: CN II-XI grossly intact, no focal neuro deficits Psych: Alert, oriented, appropriate affect - Labs CBC & Chem 7: 02/10/20 06:15 02/10/20 11:24 Labs: Abnormal Lab Results - Last 24 Hours (Table) 02/09/20 02/09/20 02/10/20 Range/Units 17:18 20:08 06:15 Plt Count 120 L (150-450) k/uL Sodium (137-145) mmol/L Potassium (3.5-5.1) mmol/L Chloride (98-107) mmol/L BUN (7-17) mg/dL Creatinine (0.52-1.04) mg/dL Glucose (74-99) mg/dL POC Glucose (mg/dL) 212 H 223 H (75-99) mg/dL Calcium (8.4-10.2) mg/dL AST (14-36) U/L ALT (4-34) U/L Total Protein (6.3-8.2) g/dL Albumin (3.5-5.0) g/dL 02/10/20 02/10/20 02/10/20 Range/Units 06:15 07:21 11:24 Plt Count (150-450) k/uL Sodium 134 L 133 L (137-145) mmol/L Potassium 6.2 H* 5.6 H (3.5-5.1) mmol/L Chloride 97 L 97 L (98-107) mmol/L BUN 61 H 64 H (7-17) mg/dL Creatinine 3.03 H 3.17 H (0.52-1.04) mg/dL Glucose 164 H 266 H (74-99) mg/dL POC Glucose (mg/dL) 187 H (75-99) mg/dL Calcium 7.8 L 8.2 L (8.4-10.2) mg/dL AST 51 H (14-36) U/L ALT 50 H (4-34) U/L Total Protein 6.2 L (6.3-8.2) g/dL Albumin 3.4 L (3.5-5.0) g/dL Assessment and Plan Assessment: Acute kidney injury with hyperkalemia -Orders for hyperkalemia were insulin, glucose, calcium gluconate, IV fluids -Lisinopril, lasix and hydrochlorothiazide on hold -Consult nephrology -Check renal ultrasound -Repeat basic metabolic profile this afternoon and in a.m. Gastroenteritis -Covid negative -supportive care Diabetes mellitus type 2 insulin requiring -A1c 8.2 -Patient has been transitioned from Novolin N and R to levemir and SSI -follow BS -Metformin on hold Falls - pt/ot - supportive care Hypertension - controlled - Follow BP closely, off Lisinopril-HCTZ, lasix, Morbid obesity, BMI 49.7 - structured outpatient weight loss Thrombocytopenia, chronic -at baseline - Follow CBC Diarrhea, improved DVT prophylaxis: Heparin Discussed with: Patient, nursing Anticipated discharge: 2-[address]: home A total of 35 minutes was spent on the care of this complex patient more than 50% of the time was spent in counseling and care coordination. -
[2020-02-10 17:27] LABS: Glucose,Whole Blood 209 mg/dL (75-99)
[2020-02-10] MEDS ORDERED: LIDOCAINE 1% INJ 10MG/ML (20 ML MDV) SQ ONE (20:45)
[2020-02-10] MEDS ORDERED: IV FLUID CONTINUATION 1,000 ML IV ONE (20:45)
[2020-02-10] MEDS ORDERED: MIDAZOLAM 2 MG/2 ML VIAL IV ONE (20:45)
--- NOTE | 2020-02-10 21:00 | CONS ---
CONSULTATION This patient is a 59-year-old female. I was consulted for urgent placement of dialysis catheter. The patient has a history of acute on chronic renal failure. The patient has a potassium of 6.3 with no urine output. The patient is scheduled to have a dialysis catheter. MEDICAL HISTORY: History of hypertension, diabetes, chronic renal failure, obesity. PHYSICAL EXAMINATION: Patient is seen in her room. NECK: Supple. Trachea central. CHEST: Clear on auscultation. ABDOMEN: Soft. Femoral pulses are present. Patient has some mild swelling of both lower extremities. IMPRESSION: 1. Acute on chronic renal failure. 2. Hypertension. 3. Obesity. 4. Diabetes. PLAN: Placement of dialysis catheter. Risks and complications of bleeding, infection, thrombosis have been discussed. MMODL / IJN: [id number] /
[2020-02-10 22:39] LABS: Glucose,Whole Blood 220 mg/dL (75-99)
[2020-02-11] MEDS: HEPARIN SODIUM,PORCINE 5,000 UNIT/ML 1 ML VIAL SQ SCH ×4 (00:15→22:29)
[2020-02-11] MEDS: QUEtiapine 200 MG TAB PO SCH ×2 (00:15→20:48)
[2020-02-11] MEDS: ZOLPIDEM 5 MG TAB PO SCH ×2 (00:15→20:55)
[2020-02-11] MEDS: OXcarbazepine 300 MG TAB PO SCH ×3 (00:16→20:48)
[2020-02-11] MEDS: VORTIOXETINE HYDROBROMIDE 10 MG TABLET PO SCH ×3 (00:16→20:48)
[2020-02-11] MEDS: LORazepam 1 MG TAB PO PRN ×2 (00:23→15:24)
--- NOTE | 2020-02-11 06:03 | PCN ---
PROCEDURE NOTE PREOP DIAGNOSES: Acute on chronic renal failure with high potassium. PROCEDURE PERFORMED: Ultrasound-guided 23 cm dialysis catheter right femoral approach. SEDATION: Time is 18 minutes. DESCRIPTION OF PROCEDURE: Patient brought to the screedman/laborer. Right groin was prepped and draped applied in sterile manner. 1% lidocaine were infiltrated and IV sedation was given. Then ultrasound- guided micropuncture into the right femoral vein. After that, we placed a 4-Fijian sheath on top of the guidewire. Then we passed a regular guidewire and dilator were advanced and then a 20 cm dialysis catheter placed on the top of the guidewire without any resistance. Flushed with heparin saline and hep-locked and secured with 3-0 nylon. Dressing applied. Patient tolerated the procedure well. MMSANDY / IGLESIAN: [id number] /
[2020-02-11] MEDS ORDERED: IV FLUID CONTINUATION 1,000 ML IV ONE (06:50)
[2020-02-11] MEDS ORDERED: LIDOCAINE 1% INJ 10MG/ML (20 ML MDV) SQ ONE (06:53)
[2020-02-11] MEDS ORDERED: IOPAMIDOL-250 50ML BTL IV ONE (06:58)
[2020-02-11 07:23] LABS: Glucose,Whole Blood 255 mg/dL (75-99)
[2020-02-11 07:39] LABS: Basophils % (A) 1 %; Eosinophils # (A) 0.2 k/uL (0-0.7); Eosinophils % (A) 4 %; HCT 35.1 % (34.0-46.0); HGB 11.3 gm/dL (11.4-16.0); Hypochromasia Moderate; Lymphocytes # (A) 2.1 k/uL (1.0-4.8); Lymphocytes % (A) 41 %; MCH 29.1 pg (25.0-35.0); MCHC 32.1 g/dL (31.0-37.0); MCV 90.4 fL (80.0-100.0); Mean Platelet Volume 8.7; Monocytes # (A) 0.3 k/uL (0-1.0); Monocytes % (A) 7 %; Neutrophils # (A) 2.3 k/uL (1.3-7.7); Neutrophils % (A) 46 %; Platelet Count 100 k/uL (150-450); RBC 3.88 m/uL (3.80-5.40); RDW 14.4 % (11.5-15.5); WBC 5.1 k/uL (3.8-10.6)
[2020-02-11 07:40] LABS: Calcium 8.6 mg/dL (8.4-10.2); Magnesium 1.8 mg/dL (1.6-2.3); Potassium 5.9 mmol/L (3.5-5.1)
--- NOTE | 2020-02-11 08:25 | PCN ---
PROCEDURE NOTE PREOPERATIVE DIAGNOSIS: Acute on chronic failure with hypertension. PROCEDURE PERFORMED: Placement of 30 cm dialysis catheter right femoral approach. DESCRIPTION OF PROCEDURE: This patient has history of chronic failure. The patient had a dialysis catheter placed which was malfunctioning. The patient was brought to the cath lab nurse. Right groin was prepped and drapes applied in sterile manner. 1% lidocaine infiltrated in the groin. Guidewire was passed which was parked in the inferior vena cava and the catheter was removed. Then we placed a 30 cm dialysis catheter. Tip of the catheter was in the superior vena cava and flushed with heparin saline and there was free flow noted. Secured with 3-0 nylon. We injected 10 mL of dye. The catheter was in good position. No obstruction was noted in the vena cava. Dressings applied. Patient tolerated the procedure well. MMODL / IJN: [id number] /
[2020-02-11] MEDS: ASPIRIN 81 MG PO SCH (08:43)
[2020-02-11] MEDS: INSULIN DETEMIR (LEVEMIR) 100 UNIT/ML SYR SQ SCH (08:43)
[2020-02-11] MEDS: INSULIN ASPART (NovoLOG) 100 UNIT/ML VIAL SQ SCH ×5 (08:43→20:47)
[2020-02-11 10:33] LABS: Hepatitis B Surface AB- Quant 3.5 mIU/mL; Hepatitis B Surface Antibody Non-Reactive (Non-Reactive); Hepatitis B Surface Antigen Non-Reactive (Non-Reactive)
[2020-02-11 11:37] LABS: Glucose,Whole Blood 318 mg/dL (75-99)
[2020-02-11] MEDS: CYCLOBENZAPRINE 5 MG TAB PO PRN ×2 (11:42→20:48)
[2020-02-11] MEDS: FLUTICASONE 50MCG/SPRAY NASAL 16GM EA NOSTRIL SCH (11:43)
[2020-02-11] MEDS: SODIUM CHLORIDE 0.9% 1,000 ML IV SCH (11:45)
--- NOTE | 2020-02-11 13:51 | P.PN ---
Subjective Progress Note Date: 02/11/20 Follow-up for acute kidney injury. Hyperkalemia started on dialysis yesterday for refractory hyperkalemia. Had 1 hour session of dialysis last night and the catheter was not working and had again this morning. Making urine. Objective - Vital Signs Vital signs: Vital Signs Temp 98.0 F 02/11/20 13:44 Pulse 70 02/11/20 13:44 Resp 20 02/11/20 13:44 BP 98/62 02/11/20 13:44 Pulse Ox 93 L 02/11/20 11:48 Intake & Output 02/10/20 02/11/20 02/11/20 18:59 06:59 18:59 Intake Total 1050 100 Output Total 800 2800 215 Balance 250 -2700 -215 Intake: IV 100 Intake, IV Titration 1050 Amount Calcium Gluconate 1 gm In 100 Sodium Chloride 0.9% 100 ml @ 100 mls/hr IVPB ONCE ONE Rx#:[id number] Sodium Chloride 0.9% 1, 450 000 ml @ 75 mls/hr IV . [id number] [facility] Rx#:[id number] Sodium Chloride 0.9% 500 500 ml 500 ml @ 999 mls/hr IV .Q31M ONE Rx#:[id number] Output: Urine 800 1400 Post Void Residual 1400 215 Other: # Voids 1 0 - Exam No acute distress S1-S2 heard Lungs clear Edema - Labs CBC & Chem 7: 02/11/20 06:20 02/11/20 06:20 Labs: Abnormal Lab Results - Last 24 Hours (Table) 02/10/20 02/10/20 02/10/20 Range/Units 17:01 17:26 22:12 Hgb (11.4-16.0) gm/dL Plt Count (150-450) k/uL Sodium (137-145) mmol/L Potassium 6.4 H* (3.5-5.1) mmol/L BUN (7-17) mg/dL Creatinine (0.52-1.04) mg/dL Glucose (74-99) mg/dL POC Glucose (mg/dL) 209 H 220 H (75-99) mg/dL Phosphorus (2.5-4.5) mg/dL 02/11/20 02/11/20 02/11/20 Range/Units 06:20 06:20 07:21 Hgb 11.3 L (11.4-16.0) gm/dL Plt Count 100 L (150-450) k/uL Sodium 133 L (137-145) mmol/L Potassium 5.9 H (3.5-5.1) mmol/L BUN 53 H (7-17) mg/dL Creatinine 2.02 H (0.52-1.04) mg/dL Glucose 231 H (74-99) mg/dL POC Glucose (mg/dL) 255 H (75-99) mg/dL Phosphorus 5.0 H (2.5-4.5) mg/dL 02/11/20 Range/Units 11:36 Hgb (11.4-16.0) gm/dL Plt Count (150-450) k/uL Sodium (137-145) mmol/L Potassium (3.5-5.1) mmol/L BUN (7-17) mg/dL Creatinine (0.52-1.04) mg/dL Glucose (74-99) mg/dL POC Glucose (mg/dL) 318 H (75-99) mg/dL Phosphorus (2.5-4.5) mg/dL Assessment and Plan Assessment: #1 nonoliguric acute kidney injury secondary to urinary retention/ATN. Baseline creatinine 0.8 MG per DL. #2 refractory hyperkalemia requiring dialysis #3 metabolic acidosis #4 urinary retention requiring straight caths #5 hypertension Plan: #1 hemodialysis for refractory hyperkalemia. #2 monitor renal function and urine output. #3 if renal function continues to improve, hold dialysis and possible removal of the Ger catheter next week. #4 PVRs and straight cath if more than 250 ML's.
--- NOTE | 2020-02-11 14:21 | P.PN ---
Subjective Progress Note Date: 02/11/20 (delayed charting seen at 0930) Principal diagnosis: Diarrhea Patient is a 59-year-old female with hypertension, diabetes mellitus with A1c 8.2 in August 2019, prior brain injury who presented to the hospital secondary to generalized weakness with multiple falls. In the ER she underwent an extensive evaluation. On arrival her vital signs were within normal limits. Laboratory analysis demonstrated was 117, sodium 135, potassium 5.2, BUN 56, creatinine 2.34, glucose 193, AST 50, ALT 51, urinalysis was benign, C. diff negative, coronavirus PCR negative. Chest x-ray showed possible mild mediastinal adenopathy compared to old examined follow-up was recommended, lumbar spine x-ray showed spondylitic changes with previous surgery, elbow x-ray showed no acute abnormality. She was diagnosed with acute renal failure and started on IV fluids. She was admitted for further monitoring. All nephrotoxic medications were held. On the morning of 02/09 she was noted to have potassium of 6.2. Insulin, glucose, calcium gluconate, and normal saline bolus were ordered. Renal ultrasound did not show any signs of hydronephrosis. Nephrology was consulted. Her repeat potassium improved slightly but this was repeated again at 5 pm and worsened. She had a temporary HD cath placed, she recieved 1 hours of HD but that was not functioning properly. She had her catheter changed out on 02/10. Overnight on 02/09 she was noted to have Urinary reteintion and was straight cathed for 1400cc. She was urinating after that and PVR was rechecked and was 251. Patient seen and examined at bedside. No additional bowel movements yesterday. No nausea or vomiting. Is complaining of low back pain and has a history of 4 back surgeries. No chest pain or shortness of breath. Tolerating dialysis well. Objective - Vital Signs Vital signs: Vital Signs Temp 98.0 F 02/11/20 13:44 Pulse 70 02/11/20 13:44 Resp 20 02/11/20 13:44 BP 98/62 02/11/20 13:44 Pulse Ox 93 L 02/11/20 11:48 Intake & Output 02/10/20 02/11/20 02/11/20 18:59 06:59 18:59 Intake Total 2318 791 2761 Output Total 800 2800 215 Balance 250 -2700 1440 Intake: IV 100 Intake, IV Titration 1050 75 Amount Calcium Gluconate 1 gm In 100 Sodium Chloride 0.9% 100 ml @ 100 mls/hr IVPB ONCE ONE Rx#:[id number] Sodium Chloride 0.9% 1, 450 75 000 ml @ 75 mls/hr IV . [id number] [facility] Rx#:[id number] Sodium Chloride 0.9% 500 500 ml 500 ml @ 999 mls/hr IV .Q31M ONE Rx#:[id number] Oral 1580 Output: Urine 800 1400 Post Void Residual 1400 215 Other: # Voids 1 0 2 - Exam General: non toxic, no distress, appears older than stated age, obese Derm: warm, dry Head: atraumatic, normocephalic, symmetric Eyes: EOMI, no lid lag, anicteric sclera Mouth: no lip lesion, mucus membranes moist Cardiovascular: S1S2 reg, no murmur, positive posterior tibial pulse bilateral, Lungs:Decreased bs bilateral, no rhonchi, no rales , no accessory muscle use Abdominal: soft, nontender to palpation diffusely, no guarding, no appreciable organomegaly Ext: no gross muscle atrophy, trace edema, no contractures Neuro: CN II-XI grossly intact, no focal neuro deficits Psych: Alert, oriented, appropriate affect - Labs CBC & Chem 7: 02/11/20 06:20 02/11/20 06:20 Labs: Abnormal Lab Results - Last 24 Hours (Table) 02/10/20 02/10/20 02/10/20 Range/Units 17:01 17:26 22:12 Hgb (11.4-16.0) gm/dL Plt Count (150-450) k/uL Sodium (137-145) mmol/L Potassium 6.4 H* (3.5-5.1) mmol/L BUN (7-17) mg/dL Creatinine (0.52-1.04) mg/dL Glucose (74-99) mg/dL POC Glucose (mg/dL) 209 H 220 H (75-99) mg/dL Phosphorus (2.5-4.5) mg/dL 02/11/20 02/11/20 02/11/20 Range/Units 06:20 06:20 07:21 Hgb 11.3 L (11.4-16.0) gm/dL Plt Count 100 L (150-450) k/uL Sodium 133 L (137-145) mmol/L Potassium 5.9 H (3.5-5.1) mmol/L BUN 53 H (7-17) mg/dL Creatinine 2.02 H (0.52-1.04) mg/dL Glucose 231 H (74-99) mg/dL POC Glucose (mg/dL) 255 H (75-99) mg/dL Phosphorus 5.0 H (2.5-4.5) mg/dL 02/11/20 Range/Units 11:36 Hgb (11.4-16.0) gm/dL Plt Count (150-450) k/uL Sodium (137-145) mmol/L Potassium (3.5-5.1) mmol/L BUN (7-17) mg/dL Creatinine (0.52-1.04) mg/dL Glucose (74-99) mg/dL POC Glucose (mg/dL) 318 H (75-99) mg/dL Phosphorus (2.5-4.5) mg/dL Assessment and Plan Assessment: Acute kidney injury with hyperkalemia -S/P HD with temporary cath placed -Lisinopril, lasix and hydrochlorothiazide on hold -Nephrology recs appreciated -Renal ultrasound without hydronephrosis -avoid nephrotoxic agents -follow Cr Acute back pain - norco and flexiril Urinary retention - appears improved - monitor closely - not on anticholenergic medications Gastroenteritis, improving -Covid negative -supportive care Diabetes mellitus type 2 insulin requiring -A1c 8.2 -Patient has been transitioned from Novolin N and R to levemir (increased) and SSI -follow BS -Metformin on hold Falls - pt/ot - supportive care Hypertension - controlled - Follow BP closely, off Lisinopril-HCTZ, lasix, Morbid obesity, BMI 49.7 - structured outpatient weight loss Thrombocytopenia, chronic -at baseline - Follow CBC Diarrhea, improved DVT prophylaxis: Heparin Discussed with: Patient, nursing Anticipated discharge: 2-[address]: home health vs SNF A total of 35 minutes was spent on the care of this complex patient more than 50% of the time was spent in counseling and care coordination. -
[2020-02-11] MEDS: ACETAMINOPHEN TAB 325 MG TAB PO PRN (15:23)
[2020-02-11 16:59] LABS: Glucose,Whole Blood 239 mg/dL (75-99)
[2020-02-11 20:16] LABS: Glucose,Whole Blood 282 mg/dL (75-99)
[2020-02-12] MEDS ORDERED: INSULIN DETEMIR (LEVEMIR) 100 UNIT/ML SYR SQ SCH (07:00)
[2020-02-12 07:17] LABS: Glucose,Whole Blood 267 mg/dL (75-99)
[2020-02-12 07:24] LABS: Calcium 8.7 mg/dL (8.4-10.2); Potassium 5.1 mmol/L (3.5-5.1)
[2020-02-12] MEDS: ASPIRIN 81 MG PO SCH (07:38)
[2020-02-12] MEDS: CYCLOBENZAPRINE 5 MG TAB PO PRN ×2 (07:39→15:56)
[2020-02-12] MEDS: VORTIOXETINE HYDROBROMIDE 10 MG TABLET PO SCH ×2 (07:39→21:38)
[2020-02-12] MEDS: OXcarbazepine 300 MG TAB PO SCH ×2 (07:40→21:41)
[2020-02-12] MEDS: HEPARIN SODIUM,PORCINE 5,000 UNIT/ML 1 ML VIAL SQ SCH ×3 (07:40→21:41)
[2020-02-12] MEDS: INSULIN ASPART (NovoLOG) 100 UNIT/ML VIAL SQ SCH ×7 (07:41→21:38)
[2020-02-12] MEDS: FLUTICASONE 50MCG/SPRAY NASAL 16GM EA NOSTRIL SCH (07:42)
[2020-02-12 11:32] LABS: Glucose,Whole Blood 262 mg/dL (75-99)
[2020-02-12] MEDS: HYDROcodone/APAP 5-325MG 1 EACH TAB PO PRN ×2 (11:43→17:35)
--- NOTE | 2020-02-12 14:04 | P.PN ---
Subjective Progress Note Date: 02/12/20 Follow-up for acute kidney injury. Hemodialysis yesterday for refractory hyperkalemia. Objective - Vital Signs Vital signs: Vital Signs Temp 99.1 F 02/12/20 11:31 Pulse 83 02/12/20 11:31 Resp 18 02/12/20 11:31 BP 151/78 02/12/20 11:31 Pulse Ox 96 02/12/20 11:31 Intake & Output 02/11/20 02/12/20 02/12/20 18:59 06:59 18:59 Intake Total 2683 396 8738 Output Total 215 Balance 1900 966 0620 Intake: Intake, IV Titration 75 Amount Sodium Chloride 0.9% 1, 75 000 ml @ 75 mls/hr IV . [id number] [facility] Rx#:[id number] Oral 3303 140 0302 Output: Post Void Residual 215 Other: # Voids 2 2 2 - Exam No acute distress S1-S2 heard Lungs clear Edema - Labs CBC & Chem 7: 02/11/20 06:20 02/12/20 06:25 Labs: Abnormal Lab Results - Last 24 Hours (Table) 02/11/20 02/11/20 02/12/20 Range/Units 16:59 20:14 06:25 Sodium 134 L (137-145) mmol/L Chloride 97 L (98-107) mmol/L BUN 28 H (7-17) mg/dL Creatinine 1.08 H (0.52-1.04) mg/dL Glucose 221 H (74-99) mg/dL POC Glucose (mg/dL) 239 H 282 H (75-99) mg/dL 02/12/20 02/12/20 Range/Units 07:17 11:31 Sodium (137-145) mmol/L Chloride (98-107) mmol/L BUN (7-17) mg/dL Creatinine (0.52-1.04) mg/dL Glucose (74-99) mg/dL POC Glucose (mg/dL) 267 H 262 H (75-99) mg/dL Assessment and Plan Assessment: #1 nonoliguric acute kidney injury secondary to urinary retention/ATN. Baseline creatinine 0.8 MG per DL. #2 refractory hyperkalemia requiring dialysis #3 metabolic acidosis #4 urinary retention requiring straight caths #5 hypertension Plan: #1 hemodialysis for refractory hyperkalemia.Renal function and potassium better today. #2 monitor renal function and urine output. #3 if renal function continues to improve, hold dialysis tomorrow and possible removal of the Ger. #4 PVRs and straight cath if more than 250 ML's.
--- NOTE | 2020-02-12 15:37 | P.PN ---
Subjective Progress Note Date: 02/12/20 (delayed charting seen at 0945) Principal diagnosis: Diarrhea Patient is a 59-year-old female with hypertension, diabetes mellitus with A1c 8.2 in August 2019, prior brain injury who presented to the hospital secondary to generalized weakness with multiple falls. In the ER she underwent an extensive evaluation. On arrival her vital signs were within normal limits. Laboratory analysis demonstrated was 117, sodium 135, potassium 5.2, BUN 56, creatinine 2.34, glucose 193, AST 50, ALT 51, urinalysis was benign, C. diff negative, coronavirus PCR negative. Chest x-ray showed possible mild mediastinal adenopathy compared to old examined follow-up was recommended, lumbar spine x-ray showed spondylitic changes with previous surgery, elbow x-ray showed no acute abnormality. She was diagnosed with acute renal failure and started on IV fluids. She was admitted for further monitoring. All nephrotoxic medications were held. On the morning of 02/09 she was noted to have potassium of 6.2. Insulin, glucose, calcium gluconate, and normal saline bolus were ordered. Renal ultrasound did not show any signs of hydronephrosis. Nephrology was consulted. Her repeat potassium improved slightly but this was repeated again at 5 pm and worsened. She had a temporary HD cath placed, she recieved 1 hours of HD but that was not functioning properly. She had her catheter changed out on 02/10. Overnight on 02/09 she was noted to have Urinary reteintion and was straight cathed for 1400cc. She was urinating after that and PVR was rechecked and was 251. Her renal function was much improved on 02/11. She was feeling incomplete bladder emptying and miller was inserted with 400 cc out. Patient seen and examined at bedside. Continues to have back pain, no nuasea, no vomiting, feels like she is not emptying her bladder. D/W her plan of care she is in agreement. Objective - Vital Signs Vital signs: Vital Signs Temp 99.1 F 02/12/20 11:31 Pulse 83 02/12/20 11:31 Resp 18 02/12/20 11:31 BP 151/78 02/12/20 11:31 Pulse Ox 96 02/12/20 11:31 Intake & Output 02/11/20 02/12/20 02/12/20 18:59 06:59 18:59 Intake Total 6073 242 9604 Output Total 215 1400 Balance 1440 250 -290 Intake: Intake, IV Titration 75 Amount Sodium Chloride 0.9% 1, 75 000 ml @ 75 mls/hr IV . [id number] [facility] Rx#:[id number] Oral 1824 163 8542 Output: Urine 1400 Post Void Residual 215 Other: # Voids 2 2 2 - Exam General: non toxic, mild distress due to pain, appears older than stated age, obese Derm: warm, dry Head: atraumatic, normocephalic, symmetric Eyes: EOMI, no lid lag, anicteric sclera Mouth: no lip lesion, mucus membranes moist Cardiovascular: S1S2 reg, no murmur, positive posterior tibial pulse bilateral, Lungs: Decreased bs bilateral, no rhonchi, no rales , no accessory muscle use Abdominal: soft, nontender to palpation diffusely, no guarding, no appreciable organomegaly Ext: no gross muscle atrophy, 2+ edema, no contractures Neuro: CN II-XI grossly intact, no focal neuro deficits Psych: Alert, oriented, appropriate affect - Labs CBC & Chem 7: 02/11/20 06:20 02/12/20 06:25 Labs: Abnormal Lab Results - Last 24 Hours (Table) 02/11/20 02/11/20 02/12/20 Range/Units 16:59 20:14 06:25 Sodium 134 L (137-145) mmol/L Chloride 97 L (98-107) mmol/L BUN 28 H (7-17) mg/dL Creatinine 1.08 H (0.52-1.04) mg/dL Glucose 221 H (74-99) mg/dL POC Glucose (mg/dL) 239 H 282 H (75-99) mg/dL 02/12/20 02/12/20 Range/Units 07:17 11:31 Sodium (137-145) mmol/L Chloride (98-107) mmol/L BUN (7-17) mg/dL Creatinine (0.52-1.04) mg/dL Glucose (74-99) mg/dL POC Glucose (mg/dL) 267 H 262 H (75-99) mg/dL Assessment and Plan Assessment: Acute kidney injury - improving -S/P HD with temporary cath placed, hold HD on 5/3 -Lisinopril, lasix and hydrochlorothiazide on hold -Nephrology recs appreciated -Renal ultrasound without hydronephrosis -avoid nephrotoxic agents -follow Cr Acute back pain - norco and flexiril Urinary retention - recurrent - place miller and consult urology - may be related to back issues, not a candidate for CT with contrast, Thursday AM will check ABD girth and see if she can have L-spine MRI - not on anticholenergic medications Diabetes mellitus type 2 insulin requiring -A1c 8.2 -Patient has been transitioned from Novolin N and R to levemir (increased again) and SSI and fixed dose -follow BS -Metformin on hold, likely d/c on discharge as laura not helping much with insulin requirement Falls - pt/ot - supportive care Hypertension - controlled - Follow BP closely, off Lisinopril-HCTZ, lasix, Morbid obesity, BMI 49.7 - structured outpatient weight loss Thrombocytopenia, chronic -at baseline - Follow CBC Diarrhea, improved hyperkalemia, resolved Gastroenteritis, resolved DVT prophylaxis: Heparin Discussed with: Patient, nursing Anticipated discharge: 1-[address]: home health vs SNF A total of 35 minutes was spent on the care of this complex patient more than 50% of the time was spent in counseling and care coordination. -
[2020-02-12] MEDS: LORazepam 1 MG TAB PO PRN (15:56)
[2020-02-12 17:26] LABS: Glucose,Whole Blood 256 mg/dL (75-99)
[2020-02-12 20:01] LABS: Glucose,Whole Blood 284 mg/dL (75-99)
[2020-02-12] MEDS: QUEtiapine 200 MG TAB PO SCH (21:40)
[2020-02-12] MEDS: ZOLPIDEM 5 MG TAB PO SCH (21:40)
[2020-02-13] MEDS: HYDROcodone/APAP 5-325MG 1 EACH TAB PO PRN ×2 (01:29→14:57)
[2020-02-13 02:21] LABS: Glucose,Whole Blood 242 mg/dL (75-99)
[2020-02-13 06:51] LABS: HCT 32.2 % (34.0-46.0); HGB 10.4 gm/dL (11.4-16.0); MCH 28.6 pg (25.0-35.0); MCHC 32.2 g/dL (31.0-37.0); MCV 88.7 fL (80.0-100.0); Mean Platelet Volume 8.1; RBC 3.63 m/uL (3.80-5.40); RDW 14.8 % (11.5-15.5); WBC 3.7 k/uL (3.8-10.6)
[2020-02-13 07:05] LABS: Glucose,Whole Blood 226 mg/dL (75-99)
[2020-02-13 07:13] LABS: Platelet Count 88 k/uL (150-450)
[2020-02-13 07:14] LABS: Calcium 8.6 mg/dL (8.4-10.2); Potassium 4.5 mmol/L (3.5-5.1)
[2020-02-13] MEDS: INSULIN DETEMIR (LEVEMIR) 100 UNIT/ML SYR SQ SCH ×2 (08:00→13:36)
[2020-02-13] MEDS: INSULIN ASPART (NovoLOG) 100 UNIT/ML VIAL SQ SCH ×9 (08:54→21:29)
[2020-02-13] MEDS: ASPIRIN 81 MG PO SCH (08:55)
[2020-02-13] MEDS: HEPARIN SODIUM,PORCINE 5,000 UNIT/ML 1 ML VIAL SQ SCH ×3 (08:55→21:29)
[2020-02-13] MEDS: VORTIOXETINE HYDROBROMIDE 10 MG TABLET PO SCH ×2 (08:55→21:28)
[2020-02-13] MEDS: OXcarbazepine 300 MG TAB PO SCH ×2 (08:56→21:28)
--- NOTE | 2020-02-13 09:03 | P.PN ---
Subjective Progress Note Date: 02/13/20 Principal diagnosis: JAMARI JAMARI Patient is a 59-year-old female with hypertension, diabetes mellitus with A1c 8.2 in August 2019, prior brain injury who presented to the hospital secondary to generalized weakness with multiple falls. In the ER she underwent an extensive evaluation. On arrival her vital signs were within normal limits. Laboratory analysis demonstrated was 117, sodium 135, potassium 5.2, BUN 56, creatinine 2.34, glucose 193, AST 50, ALT 51, urinalysis was benign, C. diff negative, coronavirus PCR negative. Chest x-ray showed possible mild mediast inal adenopathy compared to old examined follow-up was recommended, lumbar spine x-ray showed spondylitic changes with previous surgery, elbow x-ray showed no acute abnormality. She was diagnosed with acute renal failure and started on IV fluids. She was admitted for further monitoring. All nephrotoxic medications were held. On the morning of 02/09 she was noted to have potassium of 6.2. Insulin, glucose, calcium gluconate, and normal saline bolus were ordered. Renal ultrasound did not show any signs of hydronephrosis. Nephrology was consulted. Her repeat potassium improved slightly but this was repeated again at 5 pm and worsened. She had a temporary HD cath placed, she received 1 hours of HD but that was not functioning properly. She had her catheter changed out on 02/10. Overnight on 02/09 she was noted to have Urinary retention and was straight cathed for 1400cc. She was urinating after that and PVR was rechecked and was 251. Her renal function was much improved today with GFR at 67. Patient is hypertensive today. Patient denies chest pain shortness, of breath, headache, fever, or chills. Patient would like her lasix restarted secondary to increased lower extremity edema. Objective - Vital Signs Vital signs: Vital Signs Temp 97.5 F L 02/13/20 05:00 Pulse 84 02/13/20 05:00 Resp 20 02/13/20 05:00 BP 162/70 02/13/20 05:00 Pulse Ox 99 02/13/20 05:00 Intake & Output 02/12/20 02/13/20 02/13/20 18:59 06:59 18:59 Intake Total 1110 540 Output Total 1400 Balance -290 540 Intake: Oral 1110 540 Output: Urine 1400 Other: Voiding Method Indwelling Catheter Indwelling Catheter # Voids 2 - Exam General: [non toxic], [no distress], [appears at stated age] Derm: [warm], [dry] Head: [atraumatic], [normocephalic], [symmetric] Eyes: [EOMI], [no lid lag], [anicteric sclera] Mouth: [no lip lesion], [mucus membranes moist] Cardiovascular: [S1S2 reg], [no murmur], [positive posterior tibial pulse bila teral], Lungs: [CTA bilateral], [no rhonchi, no rales] , [no accessory muscle use] Abdominal: [soft], [ nontender to palpation], [no guarding], [no appreciable organomegaly] Ext: [no gross muscle atrophy], [+2 edema b/l], [no contractures] Neuro: [ CN II-XI grossly intact], [no focal neuro deficits] Psych: [Alert], [oriented], [appropriate affect] - Labs CBC & Chem 7: 02/13/20 05:48 02/13/20 05:48 Labs: Abnormal Lab Results - Last 24 Hours (Table) 02/12/20 02/12/20 02/12/20 Range/Units 11:31 17:25 19:59 WBC (3.8-10.6) k/uL RBC (3.80-5.40) m/uL Hgb (11.4-16.0) gm/dL Hct (34.0-46.0) % Plt Count (150-450) k/uL Sodium (137-145) mmol/L BUN (7-17) mg/dL Glucose (74-99) mg/dL POC Glucose (mg/dL) 262 H 256 H 284 H (75-99) mg/dL 02/13/20 02/13/20 02/13/20 Range/Units 02:20 05:48 05:48 WBC 3.7 L (3.8-10.6) k/uL RBC 3.63 L (3.80-5.40) m/uL Hgb 10.4 L (11.4-16.0) gm/dL Hct 32.2 L (34.0-46.0) % Plt Count 88 L (150-450) k/uL Sodium 134 L (137-145) mmol/L BUN 24 H (7-17) mg/dL Glucose 232 H (74-99) mg/dL POC Glucose (mg/dL) 242 H (75-99) mg/dL 02/13/20 Range/Units 06:57 WBC (3.8-10.6) k/uL RBC (3.80-5.40) m/uL Hgb (11.4-16.0) gm/dL Hct (34.0-46.0) % Plt Count (150-450) k/uL Sodium (137-145) mmol/L BUN (7-17) mg/dL Glucose (74-99) mg/dL POC Glucose (mg/dL) 226 H (75-99) mg/dL Assessment and Plan Assessment: Acute kidney injury - RESOLVED -S/P HD with temporary cath placed, -Lisinopril, lasix and hydrochlorothiazide on hold -Nephrology recs appreciated -Renal ultrasound without hydronephrosis -avoid nephrotoxic agents Hypertension uncontrolled - Metoprolol 25mg daily added today - Follow BP closely, off Lisinopril-HCTZ, lasix Diabetes mellitus type 2 insulin requiring-noncompliant -A1c 8.2 -Patient has been transitioned from Novolin N and R to levemir (increased again) and SSI and fixed dose -levemir increased to 26 units subq q day -follow BS -Metformin on hold, likely d/c on discharge as likely not helping much with insulin requirement Acute back pain - norco and flexiril Urinary retention - recurrent - urology consulted. Recs appreciated - not on anticholenergic medications Falls - pt/ot - supportive care Morbid obesity, BMI 49.7 - structured outpatient weight loss Thrombocytopenia, chronic -at baseline - Follow CBC Diarrhea, improved hyperkalemia, resolved Gastroenteritis, resolved DVT prophylaxis: Heparin Discussed with: Patient, nursing Anticipated discharge: 1-[address]: home health A total of 35 minutes was spent on the care of this complex patient more than 50% of the time was spent in counseling and care coordination.
[2020-02-13] MEDS: METOPROLOL SUCCINATE (ER) 25 MG TAB.ER.24H PO SCH (09:05)
[2020-02-13] MEDS: FLUTICASONE 50MCG/SPRAY NASAL 16GM EA NOSTRIL SCH (09:05)
[2020-02-13] MEDS: LORazepam 1 MG TAB PO PRN ×2 (09:10→17:31)
--- NOTE | 2020-02-13 10:22 | IR ---
Fluoroscopy HISTORY: Central venous catheter placement for dialysis 30 seconds fluoroscopy time supplied to the referring clinician. 98 intraoperative C-arm images docu ment the procedure. See dictated report from vascular surgery.
--- NOTE | 2020-02-13 10:23 | IR ---
EXAMINATION TYPE: IR cvc replace peripheral DATE OF EXAM: 02/11/2020 COMPARISON: NONE HISTORY: Central venous catheter replacement Fluoroscopy support supplied to the referring clinician. See dictated report from vascular surgery, 1 minutes fluoroscopy time, 143 intraoperative C-arm images
--- NOTE | 2020-02-13 11:26 | P.GSCN ---
History of Present Illness Consult date: 02/13/20 History of present illness: I was asked to see this 59-year-old female for urine retention. She is in the hospital with marked weakness due to probable back problems. She has had major back surgery her last in 2003. She has had significant weakness and sciatic over the last 6 months and it worsened to the point that she presented to the hospital. She has had some renal insufficiency requiring evaluation and possible dialysis treatment. Yesterday she was going through dialysis catheter placement as well as dialysis itself and she states that during this period time she had the desire to urinate but was unable to do so on a bedpan and eventually went in urine retention. She had urine retention after back surgery many years ago. For the most part other than urgency she has done well since then. She also had a bladder neck suspension [place] [address] LAZARO at [facility] and has done well from that. She denies any vaginal prolapse. She denies incontinence or hematuria. Review of Systems All systems: negative - Constitutional Denies fever, Denies weight loss - EENT Eyes: denies blurred vision Ears, nose, mouth and throat: Denies dysphagia - Cardiovascular Denies chest pain, Denies shortness of breath - Respiratory Denies cough, Denies 7 - Gastrointestinal Reports as per HPI - Genitourinary Genitourinary: Denies dysuria, Denies hematuria - Integumentary Denies rash, Denies unusual bruising - Neurological Denies headaches, Denies syncope - Hematologic/Lymphatic Denies easy bleeding, Denies easy bruising Past Medical History Past Medical History: Diabetes Mellitus, Hypertension Additional Past Medical History / Comment(s): Brain injury History of Any Multi-Drug Resistant Organisms: None Reported Past Surgical History: Appendectomy, Section, Cholecystectomy, Hysterectomy, Orthopedic Surgery Additional Past Surgical History / Comment(s): Foot, back x 5, arm Past Anesthesia/Blood Transfusion Reactions: No Reported Reaction Additional Past Anesthesia/Blood Transfusion Reaction / Comm: Patient states she is "slow to wake up from anesthesia" Past Psychological History: Anxiety, Depression, PTSD Smoking Status: Never smoker Past Alcohol Use History: None Reported Past Drug Use History: None Reported - Past Family History Mother Family Medical History: COPD, Hypertension Father Family Medical History: Cancer Additional Family Medical History / Comment(s): Colorectal cancer, prostate cancer, lung cancer Medications and Allergies Home Medications Medication Instructions Recorded Confirmed Type Calcium 1000mg 1,000 mg PO DAILY 09/03/18 02/09/20 History Krill Oil 500 mg PO DAILY 09/03/18 02/09/20 History LORazepam [Ativan] 2 mg PO TID 09/03/18 02/09/20 History Lisinopril-Hctz 20-12.5 mg 1 tab PO DAILY 09/03/18 02/09/20 History [Zestoretic 20-12.5] QUEtiapine FUMARATE [SEROquel] 800 mg PO HS 09/03/18 02/09/20 History Vitamin B Complex 1 cap PO DAILY 09/03/18 02/09/20 History Vortioxetine Hydrobromide 10 mg PO BID 09/03/18 02/09/20 History [Brintellix] metFORMIN HCL 1,000 mg PO BID 09/03/18 02/09/20 History Aspirin [[place] Aspirin EC] 81 mg PO DAILY 02/12/19 02/09/20 History Furosemide [Lasix] 20 mg PO DAILY 02/12/19 02/09/20 History Gabapentin [Neurontin] 800 mg PO BID 02/12/19 02/09/20 History Lisinopril [Zestril] 20 mg PO DAILY 02/12/19 02/09/20 History Ascorbic Acid [Vitamin C] 1,000 mg PO DAILY 02/09/20 02/09/20 History Insulin NPH Human Isophane See Protocol SQ BID 02/09/20 02/09/20 History [NovoLIN N] Insulin Regular, Human [NovoLIN R] See Protocol SQ BID 02/09/20 02/09/20 History Potassium Chloride ER [K-Dur 10] 10 meq PO DAILY 02/09/20 02/09/20 History Zolpidem [Ambien] 10 mg PO HS PRN 02/09/20 02/09/20 History Allergies Allergy/AdvReac Type Severity Reaction Status Date / Time hydromorphone [From Dilaudid] AdvReac Nausea & Verified 02/09/20 08:37 Vomiting Paper Tape Allergy Rash/Hives Uncoded 02/09/20 00:02 Surgical - Exam Vital Signs Temp Pulse Resp BP Pulse Ox 99.1 F 84 18 146/82 99 02/09/20 00:00 02/09/20 00:00 02/09/20 00:00 02/09/20 00:00 02/09/20 00:00 - General well developed, well nourished, obese - Eyes PERRL - ENT no hearing loss - Neck trachea midline - Respiratory normal expansion, normal respiratory effort - Cardiovascular Rhythm: regular - Abdomen Abdomen: soft, non tender - Musculoskeletal normal posture - Psychiatric oriented to time, oriented to person, oriented to place, speech is normal, memory intact Results - Labs 02/13/20 05:48 02/13/20 05:48 Abnormal Lab Results - Last 24 Hours (Table) 02/12/20 02/12/20 02/12/20 Range/Units 11:31 17:25 19:59 WBC (3.8-10.6) k/uL RBC (3.80-5.40) m/uL Hgb (11.4-16.0) gm/dL Hct (34.0-46.0) % Plt Count (150-450) k/uL Sodium (137-145) mmol/L BUN (7-17) mg/dL Glucose (74-99) mg/dL POC Glucose (mg/dL) 262 H 256 H 284 H (75-99) mg/dL 02/13/20 02/13/20 02/13/20 Range/Units 02:20 05:48 05:48 WBC 3.7 L (3.8-10.6) k/uL RBC 3.63 L (3.80-5.40) m/uL Hgb 10.4 L (11.4-16.0) gm/dL Hct 32.2 L (34.0-46.0) % Plt Count 88 L (150-450) k/uL Sodium 134 L (137-145) mmol/L BUN 24 H (7-17) mg/dL Glucose 232 H (74-99) mg/dL POC Glucose (mg/dL) 242 H (75-99) mg/dL 02/13/20 Range/Units 06:57 WBC (3.8-10.6) k/uL RBC (3.80-5.40) m/uL Hgb (11.4-16.0) gm/dL Hct (34.0-46.0) % Plt Count (150-450) k/uL Sodium (137-145) mmol/L BUN (7-17) mg/dL Glucose (74-99) mg/dL POC Glucose (mg/dL) 226 H (75-99) mg/dL Diabetes panel 02/13/20 Range/Units 05:48 Sodium 134 L (137-145) mmol/L Potassium 4.5 (3.5-5.1) mmol/L Chloride 98 (98-107) mmol/L Carbon Dioxide 27 (22-30) mmol/L BUN 24 H (7-17) mg/dL Creatinine 0.94 (0.52-1.04) mg/dL Glucose 232 H (74-99) mg/dL Calcium 8.6 (8.4-10.2) mg/dL Calcium panel 02/13/20 Range/Units 05:48 Calcium 8.6 (8.4-10.2) mg/dL Pituitary panel 02/13/20 Range/Units 05:48 Sodium 134 L (137-145) mmol/L Potassium 4.5 (3.5-5.1) mmol/L Chloride 98 (98-107) mmol/L Carbon Dioxide 27 (22-30) mmol/L BUN 24 H (7-17) mg/dL Creatinine 0.94 (0.52-1.04) mg/dL Glucose 232 H (74-99) mg/dL Calcium 8.6 (8.4-10.2) mg/dL Adrenal panel 02/13/20 Range/Units 05:48 Sodium 134 L (137-145) mmol/L Potassium 4.5 (3.5-5.1) mmol/L Chloride 98 (98-107) mmol/L Carbon Dioxide 27 (22-30) mmol/L BUN 24 H (7-17) mg/dL Creatinine 0.94 (0.52-1.04) mg/dL Glucose 232 H (74-99) mg/dL Calcium 8.6 (8.4-10.2) mg/dL Assessment and Plan Assessment: Impression: Urinary retention, probable situational due to immobility. Major back issues Recommendations: I suspect that this patient will avoid given a more normal environment do. I would recommend pulling the catheter in the morning and if she voids well and her bladder empties based on a postvoid residual nothing further urologic needs to be done. If she continues to struggle urinate then the question would be whether this is related to her back issues. We will follow with this.
[2020-02-13 12:01] LABS: Glucose,Whole Blood 231 mg/dL (75-99)
[2020-02-13] MEDS: CYCLOBENZAPRINE 5 MG TAB PO PRN (14:57)
--- NOTE | 2020-02-13 16:38 | PN ---
PROGRESS NOTE Patient is seen for followup for acute kidney injury, hyperkalemia. She has had dialysis but currently not requiring dialysis anymore. Last treatment was on Thursday. Patient has good urine output. She was evaluated by Urology for urine retention and at this point, postvoid residual will be checked tomorrow and further followup with Urology post discharge. PHYSICAL EXAMINATION: Today, patient is comfortable, she is not in any acute distress. Awake and alert, oriented x3. Blood pressure was 162/70, heart rate of 84 per minute, patient is afebrile. Examination of lower extremities shows edema 1+ bilaterally. Abdomen is soft, morbidly obese. 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 LABS: Show sodium 134, potassium 4.5, BUN 24, serum creatinine 0.94, hemoglobin 10.4 g/dL. ASSESSMENT: 1. Refractory hyperkalemia, status post hemodialysis. Renal function is improved with creatinine down to 0.9 off dialysis. We can discontinue the dialysis catheter tomorrow as well. 2. Urine retention, being followed by Urology. Plans to discontinue catheter and check postvoid residual tomorrow. 3. Metabolic acidosis. 4. Hypertension. PLAN: To remove dialysis catheter tomorrow morning. Check labs in a.m. The patient is advised to avoid use of NSAIDs and hold off on the BREANN inhibitors as well for now. Maintain loop diuretics. MMODL / IJN: [id number] /
[2020-02-13 17:18] LABS: Glucose,Whole Blood 249 mg/dL (75-99)
[2020-02-13 20:05] LABS: Glucose,Whole Blood 334 mg/dL (75-99)
[2020-02-13] MEDS: ZOLPIDEM 5 MG TAB PO SCH (21:29)
[2020-02-13] MEDS: QUEtiapine 200 MG TAB PO SCH (21:29)
[2020-02-14] MEDS: LORazepam 1 MG TAB PO PRN ×2 (01:14→08:47)
[2020-02-14] MEDS ORDERED: INSULIN DETEMIR (LEVEMIR) 100 UNIT/ML SYR SQ SCH (07:00)
[2020-02-14 07:05] LABS: Glucose,Whole Blood 222 mg/dL (75-99)
[2020-02-14 08:13] LABS: Basophils # (A) 0.1 k/uL (0-0.2); Basophils % (A) 1 %; Eosinophils # (A) 0.1 k/uL (0-0.7); Eosinophils % (A) 4 %; HCT 34.9 % (34.0-46.0); HGB 10.9 gm/dL (11.4-16.0); Lymphocytes # (A) 1.5 k/uL (1.0-4.8); Lymphocytes % (A) 38 %; MCH 27.9 pg (25.0-35.0); MCHC 31.4 g/dL (31.0-37.0); MCV 88.9 fL (80.0-100.0); Mean Platelet Volume 8.5; Monocytes # (A) 0.2 k/uL (0-1.0); Monocytes % (A) 5 %; Neutrophils # (A) 1.9 k/uL (1.3-7.7); Neutrophils % (A) 49 %; Platelet Count 110 k/uL (150-450); RBC 3.92 m/uL (3.80-5.40); RDW 15.1 % (11.5-15.5); WBC 3.8 k/uL (3.8-10.6)
[2020-02-14 08:22] LABS: Albumin 3.7 g/dL (3.5-5.0); Calcium 9.1 mg/dL (8.4-10.2); Potassium 4.6 mmol/L (3.5-5.1); Total Bilirubin 0.5 mg/dL (0.2-1.3); Total Protein 6.8 g/dL (6.3-8.2)
[2020-02-14] MEDS: HEPARIN SODIUM,PORCINE 5,000 UNIT/ML 1 ML VIAL SQ SCH (08:25)
[2020-02-14] MEDS: ASPIRIN 81 MG PO SCH (08:26)
[2020-02-14] MEDS: INSULIN ASPART (NovoLOG) 100 UNIT/ML VIAL SQ SCH ×4 (08:26→13:54)
[2020-02-14] MEDS: FLUTICASONE 50MCG/SPRAY NASAL 16GM EA NOSTRIL SCH (08:27)
[2020-02-14] MEDS: METOPROLOL SUCCINATE (ER) 25 MG TAB.ER.24H PO SCH (08:27)
[2020-02-14] MEDS: OXcarbazepine 300 MG TAB PO SCH (08:28)
[2020-02-14] MEDS: VORTIOXETINE HYDROBROMIDE 10 MG TABLET PO SCH (08:49)
--- NOTE | 2020-02-14 09:30 | P.DS ---
Providers Date of admission: 02/09/20 02:09 Attending physician: Yasmeen Angel MD Consults: 02/10/20 08:10 Consult Physician Routine Consulting Provider: Moses Hinson Consult Reason/Comments: JAMARI Do you want consulting provider notified?: Yes 02/10/20 19:06 Consult Physician Urgent Consulting Provider: Celestino Beltran Consult Reason/Comments: dialysis catheter Do you want consulting provider notified?: Yes 02/12/20 15:32 Consult Physician Urgent Consulting Provider: Finn Moise Consult Reason/Comments: urinary retention Do you want consulting provider notified?: Yes Primary care physician: Arleen Richardson Patient Condition at Discharge: Stable Plan - Discharge Summary Discharge Rx Participant: No New Discharge Prescriptions: New Metoprolol Succinate (ER) [Toprol XL] 25 mg PO DAILY 30 Days #30 tab.er.24h OXcarbazepine [Trileptal] 300 mg PO BID 30 Days #60 tab Continue Vortioxetine Hydrobromide [Brintellix] 10 mg PO BID QUEtiapine FUMARATE [SEROquel] 800 mg PO HS Calcium 1000mg 1,000 mg PO DAILY Vitamin B Complex 1 cap PO DAILY LORazepam [Ativan] 2 mg PO TID Gabapentin [Neurontin] 800 mg PO BID Aspirin [[place]bud Aspirin EC] 81 mg PO DAILY Zolpidem [Ambien] 10 mg PO HS PRN PRN Reason: Insomnia Ascorbic Acid [Vitamin C] 1,000 mg PO DAILY Insulin Regular, Human [NovoLIN R] See Protocol SQ BID Insulin NPH Human Isophane [NovoLIN N] See Protocol SQ BID Discontinued Lisinopril-Hctz 20-12.5 mg [Zestoretic 20-12.5] 1 tab PO DAILY metFORMIN HCL 1,000 mg PO BID Krill Oil 500 mg PO DAILY Furosemide [Lasix] 20 mg PO DAILY Lisinopril [Zestril] 20 mg PO DAILY Potassium Chloride ER [K-Dur 10] 10 meq PO DAILY Discharge Medication List Calcium 1000mg 1,000 mg PO DAILY 09/03/18 [History] LORazepam [Ativan] 2 mg PO TID 09/03/18 [History] QUEtiapine FUMARATE [SEROquel] 800 mg PO HS 09/03/18 [History] Vitamin B Complex 1 cap PO DAILY 11/23/18 [History] Vortioxetine Hydrobromide [Brintellix] 10 mg PO BID 09/03/18 [History] Aspirin [Rosebud Aspirin EC] 81 mg PO DAILY 02/12/19 [History] Gabapentin [Neurontin] 800 mg PO BID 02/12/19 [History] Ascorbic Acid [Vitamin C] 1,000 mg PO DAILY 02/09/20 [History] Insulin NPH Human Isophane [NovoLIN N] See Protocol SQ BID 02/09/20 [History] Insulin Regular, Human [NovoLIN R] See Protocol SQ BID 02/09/20 [History] Zolpidem [Ambien] 10 mg PO HS PRN 02/09/20 [History] Metoprolol Succinate (ER) [Toprol XL] 25 mg PO DAILY 30 Days #30 tab.er.24h 02/14/20 [Rx] OXcarbazepine [Trileptal] 300 mg PO BID 30 Days #60 tab 02/14/20 [Rx] Follow up Appointment(s)/Referral(s): Arleen Richardson MD [Primary Care Provider] - 1-2 days Patient Instructions/Handouts: Metoprolol (By mouth) Discharge Disposition: HOME SELF-CARE
[2020-02-14 11:30] LABS: Glucose,Whole Blood 261 mg/dL (75-99)
[2020-02-14 11:51] VITALS: BP 139/83; PULSE 84; RESP 17; TEMP 98.5
--- NOTE | 2020-02-14 15:47 | PN ---
PROGRESS NOTE Patient is seen for followup for acute kidney injury, hyperkalemia and volume overload. She currently has good urine output. Watts catheter was discontinued. Patient has voided since then. Serum creatinine down to 0.92. Potassium is at 4.6. Patient is being discharged home. She remains off BREANN inhibitors. PHYSICAL EXAMINATION: On examination today, blood pressure was 145/76, heart rate 89 per minute, she is afebrile. Examination of the lower extremities shows edema 1+ bilaterally. Abdomen is soft, obese, nontender. CLOD PULLER exam grossly intact. LABS: Show sodium 135, potassium 4.6, BUN 18, creatinine 0.9, hemoglobin 10.9 g/dL. ASSESSMENT: 1. Acute kidney injury on initial admission, currently resolved. 2. Hyperkalemia associated with acute kidney injury, now resolved. 3. Urine retention, being followed by Urology, status post discontinuation of Watts catheter with good urine output. Patient has voided. 4. Hypertension, currently off BREANN inhibitors. PLAN: Patient is advised to avoid use of NSAIDs. She can be maintained off BREANN inhibitors for now. If blood pressure remains elevated, we can add calcium channel blockers or increase the beta blockers. She can most likely resume the BREANN inhibitors in another 1- 2 weeks as long as renal function and electrolytes remain stable. Continue with the loop diuretics which will help with the hyperkalemia as well and we will discontinue the dialysis catheter prior to discharge. Patient should follow up in the office in about 2 weeks' time. MMODL / IJN: [id number] /
[2020-02-14] MEDS ORDERED: VORTIOXETINE HYDROBROMIDE 10 MG TABLET PO SCH (21:00)
--- NOTE | 2020-02-17 08:19 | CDI ---
Documentation Clarification Form Date: 02/17/20 From: Cathie Lazo Phone: If you have a question about this query, please contact Francia Davies, Rigger at [phone] between 8am and 5pm. Admit Date: 02/09/20 Discharge Date: 02/14/20 Patient Name: ROEL JACOBSEN Visit Number: [id number] ATTENTION: The Clinical Documentation Specialists (CDI) and [facility] Coding Staff appreciate your assistance in clarifying documentation. Please respond to the clarification below the line at the bottom and electronically sign. The CDI & [facility] Coding staff will review the response and follow-up if needed. Please note: Queries are made part of the Legal Health Record. If you have any questions, please contact the author of this message via ITS. Dear Dr.Saurabh Hinson, Chronic renal disease is documented in the your consult and Dr Beltran procedure note. History/Risk Factors: no documentation of previous BUN/GFR Clinical Indicators: Dates are for 02/08-02/13 Current BUN: 56, 61, 64, 53, 28, 24, 18 Current CR:2.34, 3.03, 3.17, 2.02, 1.08, 0.94, 0.92 GFR: 22, 16, 15, 27, 57, 67, 69 Treatment: Dialysis In order to capture the severity of condition, please clarify the stage of the CKD, if known: CKD Stage 1 (GFR > 90) CKD Stage 2 (GFR 60-89) CKD Stage 3 (GFR 30-59) CKD Stage 4 (GFR 15-29) CKD Stage 5 (GFR <15) ESRD Other, please specify Unable to determine aki, possible CKD, stage unknown MTDD
== END 2020-02-14 15:10 | disposition home or self-care (01) | DRG 683 ==
LOC: EC 23:53 → 5NMEDONC 02-09 02:09
PROVIDERS: ADMIT Internal Medicine; ATTEND Internal Medicine
PROC: 06HY33Z Insertion of Infusion Device into Lower Vein, Percutaneous Approach (ICD-10-PCS; 2020-02-10 20:16)
PROC: 5A1D70Z Performance of Urinary Filtration, Intermittent, Less than 6 Hours Per Day (ICD-10-PCS; 2020-02-10 20:16)
PROC: 02HV33Z Insertion of Infusion Device into Superior Vena Cava, Percutaneous Approach (ICD-10-PCS; principal; 2020-02-11 07:00)
DX: N17.0 Acute kidney failure with tubular necrosis (principal); Z68.42 Body mass index [BMI] 45.0-49.9, adult; E87.2 Acidosis; D69.6 Thrombocytopenia, unspecified; E11.22 Type 2 diabetes mellitus with diabetic chronic kidney disease; I95.9 Hypotension, unspecified; E87.5 Hyperkalemia; E66.01 Morbid (severe) obesity due to excess calories; Z79.4 Long term (current) use of insulin; Z20.828 Contact with and (suspected) exposure to other viral communicable diseases; I12.9 Hypertensive chronic kidney disease with stage 1 through stage 4 chronic kidney disease, or unspecified chronic kidney disease; N18.9 Chronic kidney disease, unspecified; E87.70 Fluid overload, unspecified; R33.9 Retention of urine, unspecified; K52.9 Noninfective gastroenteritis and colitis, unspecified; R59.0 Localized enlarged lymph nodes; G89.29 Other chronic pain; M54.5 Low back pain; M25.522 Pain in left elbow; R29.6 Repeated falls; F32.9 Major depressive disorder, single episode, unspecified; F43.10 Post-traumatic stress disorder, unspecified; F41.9 Anxiety disorder, unspecified; Z91.19 Patient's noncompliance with other medical treatment and regimen; Z79.899 Other long term (current) drug therapy; Z79.82 Long term (current) use of aspirin; Z90.49 Acquired absence of other specified parts of digestive tract; Z90.710 Acquired absence of both cervix and uterus; Z98.891 History of uterine scar from previous surgery; Z87.820 Personal history of traumatic brain injury; Z88.5 Allergy status to narcotic agent; Z91.048 Other nonmedicinal substance allergy status; W19.XXXA Unspecified fall, initial encounter; Z82.5 Family history of asthma and other chronic lower respiratory diseases; Z82.49 Family history of ischemic heart disease and other diseases of the circulatory system; Z80.0 Family history of malignant neoplasm of digestive organs; Z80.1 Family history of malignant neoplasm of trachea, bronchus and lung; Z80.42 Family history of malignant neoplasm of prostate
CPT/HCPCS: 36415; 36580; 71046; 72100; 76770; 77001; 80048; 80053; 81001; 83605; 83735; 84100; 84132; 84484; 85025; 85027; 85610; 85730; 86706; 87324; 87340; 87635; 90935; 93005; 94640; 96360; 96361; 99285

== ENCOUNTER 2020-07-19 18:01 | Observation (INO) | payer MEDICARE ==
[2020-07-19] MEDS ORDERED: ASPIRIN 81 MG PO STA (18:47)
[2020-07-19] MEDS ORDERED: NITROGLYCERIN SL TABS 0.4 MG TAB SUBLINGUAL STA ×3 (18:47)
--- NOTE | 2020-07-19 18:49 | ED ---
General Adult HPI - General Chief complaint: Chest Pain Stated complaint: SOB chest tightness Time Seen by Provider: 07/19/20 18:25 Source: patient, RN notes reviewed Mode of arrival: ambulatory Limitations: no limitations - History of Present Illness Initial comments: Patient is a pleasant 59-year-old female presenting to the emergency Department with complaints of chest discomfort. Onset of symptoms was a couple of days ago. Discomfort is 8/10. Discomfort feels like pressure without radiation. Patient does have associated dyspnea that worsens with exertion. No leg pain or leg swelling. No nausea or diaphoresis. Patient does have occasional cough. Patient did see her doctor who recommended she come to the hospital. - Related Data Home Medications Medication Instructions Recorded Confirmed LORazepam [Ativan] 2 mg PO TID 09/03/18 07/19/20 QUEtiapine FUMARATE [SEROquel] 800 mg PO HS 09/03/18 07/19/20 Vitamin B Complex 1 cap PO HS 09/03/18 07/19/20 Aspirin [[place] Aspirin EC] 81 mg PO HS 02/12/19 07/19/20 Gabapentin [Neurontin] 800 mg PO BID 02/12/19 07/19/20 Ascorbic Acid [Vitamin C] 1,000 mg PO HS 02/09/20 07/19/20 Insulin NPH Human Isophane See Protocol SQ BID 02/09/20 07/19/20 [NovoLIN N] Insulin Regular, Human [NovoLIN R] See Protocol SQ BID 02/09/20 07/19/20 Zolpidem [Ambien] 10 mg PO HS 02/09/20 07/19/20 Calcium Carbonate [Calcium] 600 mg PO HS 07/19/20 07/19/20 Cyclobenzaprine [Flexeril] 10 mg PO HS 07/19/20 07/19/20 Furosemide [Lasix] 20 mg PO HS 07/19/20 07/19/20 Magnesium 250 mg PO HS 07/19/20 07/19/20 Metoprolol Succinate (ER) [Toprol 25 mg PO HS 07/19/20 07/19/20 XL] OXcarbazepine [Trileptal] 300 mg PO DAILY 07/19/20 07/19/20 OXcarbazepine [Trileptal] 600 mg PO HS 07/19/20 07/19/20 Allergies Allergy/AdvReac Type Severity Reaction Status Date / Time hydromorphone [From Dilaudid] AdvReac Nausea & Verified 07/19/20 20:12 Vomiting Paper Tape Allergy Rash/Hives Uncoded 07/19/20 20:12 Review of Systems ROS Statement: Those systems with pertinent positive or pertinent negative responses have been documented in the HPI. ROS Other: All systems not noted in ROS Statement are negative. Constitutional: Denies: fever Eyes: Denies: eye pain ENT: Denies: ear pain Respiratory: Reports: cough, dyspnea Cardiovascular: Reports: chest pain. Denies: palpitations Endocrine: Reports: fatigue Gastrointestinal: Denies: abdominal pain Genitourinary: Denies: urgency Musculoskeletal: Denies: back pain Skin: Denies: rash Neurological: Denies: weakness Past Medical History Past Medical History: Diabetes Mellitus, Hypertension Additional Past Medical History / Comment(s): Brain injury History of Any Multi-Drug Resistant Organisms: None Reported Past Surgical History: Appendectomy, Section, Cholecystectomy, Hysterectomy, Orthopedic Surgery Additional Past Surgical History / Comment(s): Foot, back x 5, arm Past Anesthesia/Blood Transfusion Reactions: No Reported Reaction Additional Past Anesthesia/Blood Transfusion Reaction / Comment(s): Patient sta elaine she is "slow to wake up from anesthesia" Past Psychological History: Anxiety, Depression, PTSD Smoking Status: Never smoker Past Alcohol Use History: Rare Past Drug Use History: None Reported - Past Family History Mother Family Medical History: COPD, Hypertension Father Family Medical History: Cancer Additional Family Medical History / Comment(s): Colorectal cancer, prostate cancer, lung cancer General Exam Limitations: no limitations General appearance: alert, in no apparent distress, obese Head exam: Present: normocephalic Eye exam: Present: normal appearance Neck exam: Present: normal inspection Respiratory exam: Present: normal lung sounds bilaterally. Absent: chest wall tenderness Cardiovascular Exam: Present: regular rate, normal rhythm Expanded Peripheral pulses: 2+: Radial (R), Radial (L), Dorsalis Pedis (R), Dorsalis Pedis (L) GI/Abdominal exam: Present: soft. Absent: distended, tenderness Extremities exam: Present: normal inspection. Absent: pedal edema, calf tenderness Neurological exam: Present: alert Psychiatric exam: Present: normal affect, normal mood Skin exam: Present: normal color Course Vital Signs 07/19/20 07/19/2020 18:22 19:01 19:10 Temperature 98.0 F Pulse Rate 95 Respiratory 20 Rate Blood Pressure 150/77 160/88 148/78 O2 Sat by Pulse 91 L Oximetry EKG Findings - EKG Comments: EKG Findings:: Normal sinus rhythm and 91. OH 158. QRS 84. QT 362. QTC 445. Normal axis. Normal QRS. No acute ST change Medical Decision Making - Medical Decision Making Patient reevaluated and still having some discomfort. Morphine ordered. Patient updated on results and plan. Case discussed with Dr. lu, who will admit covering for Dr. Cr. Computed tomography scan has been ordered. Dr. lu aware. - Lab Data Result diagrams: 07/19/20 18:56 07/19/20 18:56 Lab Results 07/19/20 07/19/20 07/19/20 Range/Units 18:56 18:56 18:56 WBC 3.8 (3.8-10.6) k/uL RBC 5.06 (3.80-5.40) m/uL Hgb 13.2 (11.4-16.0) gm/dL Hct 41.3 (34.0-46.0) % MCV 81.8 (80.0-100.0) fL MCH 26.1 (25.0-35.0) pg MCHC 32.0 (31.0-37.0) g/dL RDW 16.4 H (11.5-15.5) % Plt Count 87 L (150-450) k/uL Neutrophils % 58 % Lymphocytes % 30 % Monocytes % 7 % Eosinophils % 3 % Basophils % 0 % Neutrophils # 2.2 (1.3-7.7) k/uL Lymphocytes # 1.1 (1.0-4.8) k/uL Monocytes # 0.3 (0-1.0) k/uL Eosinophils # 0.1 (0-0.7) k/uL Basophils # 0.0 (0-0.2) k/uL Hypochromasia Slight Poikilocytosis (manual Present Anisocytosis Slight PT 10.9 (9.0-12.0) sec INR 1.1 (<1.2) APTT 25.3 (22.0-30.0) sec D-Dimer 0.65 H (<0.60) mg/L FEU Sodium 136 L (137-145) mmol/L Potassium 4.3 (3.5-5.1) mmol/L Chloride 97 L (98-107) mmol/L Carbon Dioxide 34 H (22-30) mmol/L Anion Gap 5 mmol/L BUN 10 (7-17) mg/dL Creatinine 0.64 (0.52-1.04) mg/dL Est GFR (CKD-EPI)AfAm >90 (>60 ml/min/1.73 sqM) Est GFR (CKD-EPI)NonAf >90 (>60 ml/min/1.73 sqM) Glucose 326 H (74-99) mg/dL Calcium 8.6 (8.4-10.2) mg/dL Magnesium 1.3 L (1.6-2.3) mg/dL Total Bilirubin 0.6 (0.2-1.3) mg/dL AST 77 H (14-36) U/L ALT 56 H (4-34) U/L Alkaline Phosphatase 209 H (38-126) U/L Troponin I (0.000-0.034) ng/mL Total Protein 6.9 (6.3-8.2) g/dL Albumin 3.8 (3.5-5.0) g/dL 07/19/20 Range/Units 18:56 WBC (3.8-10.6) k/uL RBC (3.80-5.40) m/uL Hgb (11.4-16.0) gm/dL Hct (34.0-46.0) % MCV (80.0-100.0) fL MCH (25.0-35.0) pg MCHC (31.0-37.0) g/dL RDW (11.5-15.5) % Plt Count (150-450) k/uL Neutrophils % % Lymphocytes % % Monocytes % % Eosinophils % % Basophils % % Neutrophils # (1.3-7.7) k/uL Lymphocytes # (1.0-4.8) k/uL Monocytes # (0-1.0) k/uL Eosinophils # (0-0.7) k/uL Basophils # (0-0.2) k/uL Hypochromasia Poikilocytosis (manual Anisocytosis PT (9.0-12.0) sec INR (<1.2) APTT (22.0-30.0) sec D-Dimer (<0.60) mg/L FEU Sodium (137-145) mmol/L Potassium (3.5-5.1) mmol/L Chloride (98-107) mmol/L Carbon Dioxide (22-30) mmol/L Anion Gap mmol/L BUN (7-17) mg/dL Creatinine (0.52-1.04) mg/dL Est GFR (CKD-EPI)AfAm (>60 ml/min/1.73 sqM) Est GFR (CKD-EPI)NonAf (>60 ml/min/1.73 sqM) Glucose (74-99) mg/dL Calcium (8.4-10.2) mg/dL Magnesium (1.6-2.3) mg/dL Total Bilirubin (0.2-1.3) mg/dL AST (14-36) U/L ALT (4-34) U/L Alkaline Phosphatase (38-126) U/L Troponin I <0.012 (0.000-0.034) ng/mL Total Protein (6.3-8.2) g/dL Albumin (3.5-5.0) g/dL - Radiology Data Radiology results: image reviewed (Chest x-ray shows no acute) Disposition Clinical Impression: Chest pain, Hypomagnesemia, Hyperglycemia Disposition: ADMITTED IP TO THIS HOSP Is patient prescribed a controlled substance at d/c from ED?: No Referrals: Arleen Richardson MD [Primary Care Provider] - 1-2 days Decision Time: 20:53
[2020-07-19 19:18] LABS: ALT 56 U/L (4-34); AST 77 U/L (14-36); African American GFR (CKD) >90 (>60 ml/min/1.73 sqM); Albumin 3.8 g/dL (3.5-5.0); Alkaline Phosphatase 209 U/L (38-126); Anion Gap 5 mmol/L; Blood Urea Nitrogen 10 mg/dL (7-17); Calcium 8.6 mg/dL (8.4-10.2); Carbon Dioxide 34 mmol/L (22-30); Chloride 97 mmol/L (98-107); Glucose 326 mg/dL (74-99); Magnesium 1.3 mg/dL (1.6-2.3); Non-African American GFR(CKD) >90 (>60 ml/min/1.73 sqM); Potassium 4.3 mmol/L (3.5-5.1); Sodium 136 mmol/L (137-145); Total Bilirubin 0.6 mg/dL (0.2-1.3); Total Protein 6.9 g/dL (6.3-8.2)
[2020-07-19 19:22] LABS: Anisocytosis Slight; Basophils % (A) 0 %; Eosinophils # (A) 0.1 k/uL (0-0.7); Eosinophils % (A) 3 %; HCT 41.3 % (34.0-46.0); HGB 13.2 gm/dL (11.4-16.0); Hypochromasia Slight; Lymphocytes # (A) 1.1 k/uL (1.0-4.8); Lymphocytes % (A) 30 %; MCH 26.1 pg (25.0-35.0); MCV 81.8 fL (80.0-100.0); Monocytes # (A) 0.3 k/uL (0-1.0); Monocytes % (A) 7 %; Neutrophils # (A) 2.2 k/uL (1.3-7.7); Neutrophils % (A) 58 %; RBC 5.06 m/uL (3.80-5.40); RDW 16.4 % (11.5-15.5); WBC 3.8 k/uL (3.8-10.6)
[2020-07-19 19:37] LABS: INR 1.1 (<1.2); Partial Thromboplastin Time 25.3 sec (22.0-30.0)
[2020-07-19 19:38] LABS: D-Dimer 0.65 mg/L FEU (<0.60)
[2020-07-19 19:39] LABS: Prothrombin Time 10.9 sec (9.0-12.0)
[2020-07-19 19:46] LABS: Poikilocytosis (M) Present
[2020-07-19 19:47] LABS: Platelet Count 87 k/uL (150-450)
[2020-07-19] MEDS ORDERED: MAGNESIUM SULFATE-D5W PMX 1 GM in DEXTROSE/WATER 1 100ML.BAG IVPB ONE (19:49)
--- NOTE | 2020-07-19 20:04 | XR ---
EXAMINATION: XR chest 2V DATE AND TIME: 07/19/2020 7:16 PM CLINICAL INDICATION: Chest pain, cough TECHNIQUE: Departmental protocol COMPARISON: 02/09/2020 FINDINGS: The lungs are predominantly clear. There are mild streak-like perihilar linear opacities bilaterally, appearing to be greater on the right. These are nonspecific findings but can correlate with a clinic al diagnosis of developing bronchopneumonia. The pleural spaces are negative. The cardiac silhouette is borderline enlarged. The skeletal structures and soft tissues are negative for acute findings. IMPRESSION: No definite acute process, but bilateral perihilar streak-like opacities discussed above.
[2020-07-19] MEDS ORDERED: MORPHINE SULFATE 2 MG/ML SYRINGE IVP STA (20:37)
[2020-07-19 20:52] LABS: Glucose,Whole Blood 324 mg/dL (75-99)
[2020-07-19] MEDS ORDERED: NITROGLYCERIN SL TABS 0.4 MG TAB SUBLINGUAL PRN (20:54)
[2020-07-19] MEDS: INSULIN ASPART (NovoLOG) 100 UNIT/ML VIAL SQ SCH (20:55)
--- NOTE | 2020-07-19 21:21 | CT ---
EXAMINATION TYPE: CT angio chest with contrast and with 3-D reconstruction renderings DATE OF EXAM: 07/19/2020 8:26 PM COMPARISON: None HISTORY: Dyspnea, elevated d-dimer CT DLP: 972.8 mGycm Automated exposure control for dose reduction was used. CONTRAST: CTA scan of the thorax is performed with IV Contrast, patient injected with 100 mL of Isovu e 370, pulmonary embolism protocol. . FINDINGS: AIRWAYS, LUNGS, PLEURAL SPACES: The lungs are grossly clear, there is no concerning parenchymal mass or nodule identified. There is no pleural effusion or pneumothorax seen. The tracheobronchial tree is patent. MEDIASTINUM: There is moderately satisfactory enhancement of the pulmonary artery and its branches wi th no CT evidence for pulmonary embolism. Aorta is unremarkable. Coronary calcifications are noted. Mild cardiomegaly. No pericardial effusion. No adenopathy. SKELETAL STRUCTURES: No focal findings. OTHER: Mild hepatosplenomegaly noted with caudate lobe enlargement, scalloped liver margins, and abdo odilon varices. IMPRESSION: 1. NEGATIVE FOR PULMONARY EMBOLISM OR OTHER ACUTE CHEST PROCESS. 2. Incidental: Mild hepatosplenomegaly noted with caudate lobe enlargement, scalloped liver margins, and abdominal varices. 3. Incidental: Coronary calcifications.
[2020-07-19] MEDS ORDERED: MAG HYDROX/AL HYDROX/SIMETH 30 ML, HYOSCYAMINE ELIXIR 10 ML, LIDOCAINE VISCOUS 2% 10 ML PO ONE ×3 (21:25)
[2020-07-19] MEDS: MAGNESIUM OXIDE 400 MG TAB PO SCH (21:51)
[2020-07-19] MEDS ORDERED: INSULIN DETEMIR (LEVEMIR) 100 UNIT/ML SYR SQ SCH (22:45)
[2020-07-19] MEDS ORDERED: QUEtiapine 400 MG TAB PO SCH (22:45)
--- NOTE | 2020-07-19 22:45 | P.HPIM ---
History of Present Illness H&P Date: 07/19/20 Patient is a 59-year-old female with a PMH of type II DM and hypertension who presented to the ED with complaints of chest discomfort and dyspnea on exertion. The patient reports that her symptoms of an ongoing for the past 3-4 weeks, described as a substernal chest discomfort both at rest and with exertion, occurring constantly, ranging in severity from 3-8 out of 10, nonradiating, without clear alleviating or exacerbating features. She denied associated shortness of breath, nausea, vomiting, palpitations, or dizziness. Reports significantly decreased exercise tolerance with feeling winded after walking from her front door to the mailbox and back. Reports a chronic nonproductive cough. Also notes chronic bilateral lower extremity pitting edema though denied orthopnea or PND. Denied any additional complaints. Denied fever, chills, abdominal pain, or diarrhea. In the emergency room, an EKG revealed normal sinus rhythm with T-wave inversion in lead 1 with flattening in precordial leads. Chest CTA was negative for PE the revealed coronary calcifications and abdominal varices, with chest x-ray unremarkable. Laboratory evaluation revealed a platelet count of 87, sodium 136, chloride 97, CO2 34, glucose 326, magnesium 1.3, troponin less than 0.012, alk phos 29, AST 77, ALT 56, and pro- BNP 28. Review of Systems Pertinent positives and negatives as discussed in HPI, a complete review of systems was performed and all other systems are negative. Past Medical History Past Medical History: Diabetes Mellitus, Hypertension Additional Past Medical History / Comment(s): Brain injury History of Any Multi-Drug Resistant Organisms: None Reported Past Surgical History: Appendectomy, Section, Cholecystectomy, Hysterectomy, Orthopedic Surgery Additional Past Surgical History / Comment(s): Foot, back x 5, arm Past Anesthesia/Blood Transfusion Reactions: No Reported Reaction Additional Past Anesthesia/Blood Transfusion Reaction / Comment(s): Patient sta elaine she is "slow to wake up from anesthesia" Past Psychological History: Anxiety, Depression, PTSD Smoking Status: Never smoker Past Alcohol Use History: Rare Past Drug Use History: None Reported - Past Family History Mother Family Medical History: COPD, Hypertension Father Family Medical History: Cancer Additional Family Medical History / Comment(s): Colorectal cancer, prostate cancer, lung cancer Medications and Allergies Home Medications Medication Instructions Recorded Confirmed Type LORazepam [Ativan] 2 mg PO TID 09/03/18 07/19/20 History QUEtiapine FUMARATE [SEROquel] 800 mg PO HS 09/03/18 07/19/20 History Vitamin B Complex 1 cap PO HS 09/03/18 07/19/20 History Aspirin [[place] Aspirin EC] 81 mg PO HS 02/12/19 07/19/20 History Gabapentin [Neurontin] 800 mg PO BID 02/12/19 07/19/20 History Ascorbic Acid [Vitamin C] 1,000 mg PO HS 02/09/20 07/19/20 History Insulin NPH Human Isophane See Protocol SQ BID 02/09/20 07/19/20 History [NovoLIN N] Insulin Regular, Human [NovoLIN R] See Protocol SQ BID 02/09/20 07/19/20 History Zolpidem [Ambien] 10 mg PO HS 02/09/20 07/19/20 History Calcium Carbonate [Calcium] 600 mg PO HS 07/19/20 07/19/20 History Cyclobenzaprine [Flexeril] 10 mg PO HS 07/19/20 07/19/20 History Furosemide [Lasix] 20 mg PO HS 07/19/20 07/19/20 History Magnesium 250 mg PO HS 07/19/20 07/19/20 History Metoprolol Succinate (ER) [Toprol 25 mg PO HS 07/19/20 07/19/20 History XL] OXcarbazepine [Trileptal] 300 mg PO DAILY 07/19/20 07/19/20 History OXcarbazepine [Trileptal] 600 mg PO HS 07/19/20 07/19/20 History Allergies Allergy/AdvReac Type Severity Reaction Status Date / Time hydromorphone [From Dilaudid] AdvReac Nausea & Verified 07/19/20 20:12 Vomiting Paper Tape Allergy Rash/Hives Uncoded 07/19/20 20:12 Physical Exam Vitals: Vital Signs Temp Pulse Resp BP Pulse Ox 07/19/20 21:09 94 18 150/81 96 07/19/20 19:10 148/78 07/19/20 19:01 160/88 07/19/20 18:22 98.0 F 95 20 150/77 91 L Intake and Output 07/19/20 07/19/20 07/19/20 06:59 14:59 22:59 Other: Weight 145.15 kg General: Morbidly obese female, non toxic, no distress, appears at stated age Derm: no unusual rashes/lesions no unusual ecchymoses, warm, dry Head: atraumatic, normocephalic, symmetric Eyes: EOMI, no lid lag, anicteric sclera, pupils equal round reactive to light ENT: Nose and ears atraumatic, no thrush, no pharyngeal erythema Neck: No thyromegaly, no cervical lymphadenopathy, trachea midline, supple Mouth: no lip lesion, mucus membranes moist Cardiovascular: S1S2 reg, no murmur, positive posterior tibial pulse bilateral, 1+ bilateral lower extremity pitting edema, capillary refill less than 2 seconds, no chest wall tenderness on palpation Lungs: CTA bilateral, no rhonchi, no rales , no accessory muscle use Abdominal: Obese, nontender to palpation, no guarding, no appreciable organomegaly, normal bowel sounds Ext: no gross muscle atrophy, muscle strength 5 out of 5 in all 4 extremities grossly, no contractures, Neuro: CN II-XI grossly intact, light touch intact all 4 extremities, finger to nose within normal limits, Psych: Alert, oriented, appropriate affect Results CBC & Chem 7: 07/19/20 18:56 07/19/20 18:56 Labs: Abnormal Lab Results - Last 24 Hours (Table) 07/19/20 07/19/20 07/19/20 Range/Units 18:56 18:56 18:56 RDW 16.4 H (11.5-15.5) % Plt Count 87 L (150-450) k/uL D-Dimer 0.65 H (<0.60) mg/L FEU Sodium 136 L (137-145) mmol/L Chloride 97 L (98-107) mmol/L Carbon Dioxide 34 H (22-30) mmol/L Glucose 326 H (74-99) mg/dL POC Glucose (mg/dL) (75-99) mg/dL Magnesium 1.3 L (1.6-2.3) mg/dL AST 77 H (14-36) U/L ALT 56 H (4-34) U/L Alkaline Phosphatase 209 H (38-126) U/L 07/19/20 Range/Units 20:51 RDW (11.5-15.5) % Plt Count (150-450) k/uL D-Dimer (<0.60) mg/L FEU Sodium (137-145) mmol/L Chloride (98-107) mmol/L Carbon Dioxide (22-30) mmol/L Glucose (74-99) mg/dL POC Glucose (mg/dL) 324 H (75-99) mg/dL Magnesium (1.6-2.3) mg/dL AST (14-36) U/L ALT (4-34) U/L Alkaline Phosphatase (38-126) U/L Assessment and Plan Plan: Chest discomfort, rule out ACS -Cardiology consult -Cardiac monitoring -Trend troponin -Continue with aspirin Metabolic alkalosis, possibly secondary to hypercapnia -Obtain ABG Hypomagnesemia -Replace and monitor Thrombocytopenia, chronic, at baseline -Monitor for now Type II DM with hyperglycemia -Obtain A1c -Lispro insulin sliding scale blood glucose monitoring -Levemir 20 units daily at bedtime Abnormal LFTs -Monitor for now -Likely secondary to steatohepatitis DVT prophylaxis -IPCDs The patient is admitted with an anticipated less than 2 midnight stay for evaluation of chest pain CODE STATUS: Full Code Discussed with: Patient Anticipated discharge date: 07/[address]: Home A total of 40 minutes was spent on the care of this complex patient more than 50% of the time was spent in counseling and care coordination.
[2020-07-19 22:58] LABS: Glucose,Whole Blood 303 mg/dL (75-99)
[2020-07-19] MEDS: LORazepam 1 MG TAB PO SCH (23:08)
[2020-07-20] MEDS: NITROGLYCERIN OINT 1 INCH/GM PACKET TOPICAL SCH ×2 (04:38→06:13)
[2020-07-20 06:43] LABS: Glucose,Whole Blood 169 mg/dL (75-99)
[2020-07-20 08:33] VITALS: RESP 18
[2020-07-20] MEDS ORDERED: AMINOPHYLLINE 500 MG/20 ML VIAL IV PRN (08:35)
[2020-07-20] MEDS ORDERED: REGADENOSON 0.4 MG/5 ML SYRINGE IV ONE ×2 (08:35→10:55)
[2020-07-20] MEDS ORDERED: CAFFEINE CITRATE 60 MG/3 ML VIAL IV PRN (08:35)
[2020-07-20 08:42] LABS: Anisocytosis Slight; HCT 40.9 % (34.0-46.0); HGB 12.9 gm/dL (11.4-16.0); Hypochromasia Slight; MCH 26.8 pg (25.0-35.0); MCHC 31.7 g/dL (31.0-37.0); MCV 84.5 fL (80.0-100.0); Mean Platelet Volume 8.1; RBC 4.84 m/uL (3.80-5.40); RDW 16.7 % (11.5-15.5); WBC 4.1 k/uL (3.8-10.6)
[2020-07-20 08:44] LABS: Platelet Count 83 k/uL (150-450)
[2020-07-20 08:57] LABS: ALT 65 U/L (4-34); AST 81 U/L (14-36); African American GFR (CKD) >90 (>60 ml/min/1.73 sqM); Albumin 3.7 g/dL (3.5-5.0); Alkaline Phosphatase 161 U/L (38-126); Anion Gap 4 mmol/L; Blood Urea Nitrogen 11 mg/dL (7-17); Calcium 8.8 mg/dL (8.4-10.2); Carbon Dioxide 34 mmol/L (22-30); Chloride 98 mmol/L (98-107); Cholesterol 174 mg/dL (<200); Glucose 164 mg/dL (74-99); HDL Cholesterol 46 mg/dL (40-60); LDL Cholesterol,Calculated 96 mg/dL (0-99); Magnesium 1.5 mg/dL (1.6-2.3); Non-African American GFR(CKD) >90 (>60 ml/min/1.73 sqM); Potassium 3.6 mmol/L (3.5-5.1); Sodium 136 mmol/L (137-145); Total Bilirubin 0.6 mg/dL (0.2-1.3); Total Protein 6.8 g/dL (6.3-8.2); Triglycerides 159 mg/dL (<150)
[2020-07-20] MEDS ORDERED: ASPIRIN 325 MG TAB PO SCH (09:00)
[2020-07-20] MEDS ORDERED: GABAPENTIN 400 MG CAP PO SCH (09:00)
[2020-07-20] MEDS ORDERED: ISOSORBIDE MONONITRATE ER 30 MG TAB.ER.24H PO SCH (09:00)
[2020-07-20] MEDS ORDERED: ASPIRIN 81 MG PO SCH (09:00)
[2020-07-20] MEDS ORDERED: ATORVASTATIN 40 MG TAB PO SCH (09:00)
[2020-07-20] MEDS: INSULIN ASPART (NovoLOG) 100 UNIT/ML VIAL SQ SCH ×3 (09:10→17:40)
[2020-07-20] MEDS: MAGNESIUM OXIDE 400 MG TAB PO SCH (09:18)
[2020-07-20] MEDS: LORazepam 1 MG TAB PO SCH ×2 (09:23→16:07)
--- NOTE | 2020-07-20 10:12 | P.CRDCN ---
History of Present Illness Consult date: 07/20/20 Consult reason: chest pain Chief complaint: Chest pain History of present illness: This is a 59-year-old female with history of diabetes, hypertension, morbid obesity, hyperlipidemia, anxiety and depression, sleep apnea, history of cholecystectomy, appendectomy, hysterectomy, and prior colon surgery. She was admitted from her doctor's office because she had mentioned that she's been experiencing chest heaviness that feels like an elephant sitting on her chest, radiates through to the back. She states that she gets the symptoms mostly with minimal exertion like walking from one room to the next. Her EKG on presentation here showed normal sinus rhythm with lateral T-wave inversion, similar to prior EKG. CTA of the chest was negative for pulmonary embolism. Blood pressure 155/60 heart rate 90 respirations 18 she's 96% on 2 L of oxygen. White blood cell count 3.8, hemoglobin 13.2, platelet count 87. D-dimer 0.6, sodium 136, potassium 4.3, BUN 10, creatinine 0.6. Magnesium 1.3, AST 77, ALT 56, alk phos 209, troponins negative 3. According to the patient, she underwent a stress test in the springtime at a cardiology office in [facility]. We will obtain an echocardiogram with Doppler study, we will add Lipitor 40 mg daily, patient has abnormal liver function tests, we will monitor those and if they normalize we will increase his statin 80 mg daily. Decrease aspirin 81 mg daily and resume her beta bonnie. Patient is also been advised to undergo a Lexiscan. It is noted that the patient has thrombocytopenia, which is not new for her, however because of that we'll proceed with Lexiscan if there are significant abnormality noted at that time we will consider cardiac leann terization. Past Medical History Past Medical History: Diabetes Mellitus, Hypertension Additional Past Medical History / Comment(s): Brain injury History of Any Multi-Drug Resistant Organisms: None Reported Past Surgical History: Appendectomy, Section, Cholecystectomy, Hyste rectomy, Orthopedic Surgery Additional Past Surgical History / Comment(s): Foot, back x 5, arm Past Anesthesia/Blood Transfusion Reactions: No Reported Reaction Additional Past Anesthesia/Blood Transfusion Reaction / Comment(s): Patient states she is "slow to wake up from anesthesia" Past Psychological History: Anxiety, Depression, PTSD Smoking Status: Never smoker Past Alcohol Use History: Rare Past Drug Use History: None Reported - Past Family History Mother Family Medical History: COPD, Hypertension Father Family Medical History: Cancer Additional Family Medical History / Comment(s): Colorectal cancer, prostate cancer, lung cancer Medications and Allergies Home Medications Medication Instructions Recorded Confirmed Type LORazepam [Ativan] 2 mg PO TID 09/03/18 07/19/20 History QUEtiapine FUMARATE [SEROquel] 800 mg PO HS 09/03/18 07/19/20 History Vitamin B Complex 1 cap PO HS 09/03/18 07/19/20 History Aspirin [[place] Aspirin EC] 81 mg PO HS 02/12/19 07/19/20 History Gabapentin [Neurontin] 800 mg PO BID 02/12/19 07/19/20 History Ascorbic Acid [Vitamin C] 1,000 mg PO HS 02/09/20 07/19/20 History Insulin NPH Human Isophane See Protocol SQ BID 02/09/20 07/19/20 History [NovoLIN N] Insulin Regular, Human [NovoLIN R] See Protocol SQ BID 02/09/20 07/19/20 History Zolpidem [Ambien] 10 mg PO HS 02/09/20 07/19/20 History Calcium Carbonate [Calcium] 600 mg PO HS 07/19/20 07/19/20 History Cyclobenzaprine [Flexeril] 10 mg PO HS 07/19/20 07/19/20 History Furosemide [Lasix] 20 mg PO HS 07/19/20 07/19/20 History Magnesium 250 mg PO HS 07/19/20 07/19/20 History Metoprolol Succinate (ER) [Toprol 25 mg PO HS 07/19/20 07/19/20 History XL] OXcarbazepine [Trileptal] 300 mg PO DAILY 07/19/20 07/19/20 History OXcarbazepine [Trileptal] 600 mg PO HS 07/19/20 07/19/20 History Allergies Allergy/AdvReac Type Severity Reaction Status Date / Time hydromorphone [From Dilaudid] AdvReac Nausea & Verified 07/19/20 20:12 Vomiting Paper Tape Allergy Rash/Hives Uncoded 07/19/20 20:12 Physical Exam Vitals: Vital Signs Temp Pulse Pulse Resp BP BP BP 07/20/20 08:23 98.1 F 95 18 134/80 07/20/20 03:00 98.0 F 100 17 155/68 07/19/20 22:37 98.1 F 95 17 168/114 07/19/20 21:09 94 18 150/81 07/19/20 19:10 148/78 07/19/20 19:01 160/88 07/19/20 18:22 98.0 F 95 20 150/77 Pulse Ox 07/20/20 08:23 96 07/20/20 03:00 96 07/19/20 22:37 96 07/19/20 21:09 96 07/19/20 19:10 07/19/20 19:01 07/19/20 18:22 91 L Intake and Output 07/19/20 07/20/20 07/20/20 22:59 06:59 14:59 Intake Total 237 Balance 237 Intake: Oral 237 Other: Voiding Method Toilet Toilet Toilet # Voids 3 3 Weight 145.15 kg PHYSICAL EXAMINATION: GENERAL: 59-year-old female in no acute distress at my examination HEENT: Head is atraumatic, normocephalic. Pupils equal, round. Sclera anicteric. Conjunctiva are clear. Mucous membranes of the mouth are moist. Neck is supple. There is no elevated jugular venous pressure. No carotid bruit is heard. HEART EXAMINATION: Heart S1 S2 1 systolic murmur is heard CHEST EXAMINATION: Lungs are clear to auscultation and precussion. No chest wall tenderness is noted on palpation or with deep breathing. ABDOMEN: Soft, obese, mild generalized tenderness. Bowel sounds are heard. No organomegaly noted. EXTREMITIES: 2+ peripheral pulses with trace evidence of peripheral edema and no calf tenderness noted. NEUROLOGIC patient is awake, alert and oriented 3 . Results 07/20/20 08:18 07/20/20 08:18 Cardiac Enzymes 07/19/20 07/19/20 07/19/20 Range/Units 18:56 18:56 22:26 AST 77 H (14-36) U/L Troponin I <0.012 <0.012 (0.000-0.034) ng/mL 07/20/20 07/20/20 Range/Units 01:04 08:18 AST 81 H (14-36) U/L Troponin I <0.012 (0.000-0.034) ng/mL Coagulation 07/19/20 Range/Units 18:56 PT 10.9 (9.0-12.0) sec APTT 25.3 (22.0-30.0) sec Lipids 07/20/20 Range/Units 08:18 Triglycerides 159 H (<150) mg/dL Cholesterol 174 (<200) mg/dL HDL Cholesterol 46 (40-60) mg/dL CBC 07/19/20 07/20/20 Range/Units 18:56 08:18 WBC 3.8 4.1 (3.8-10.6) k/uL RBC 5.06 4.84 (3.80-5.40) m/uL Hgb 13.2 12.9 (11.4-16.0) gm/dL Hct 41.3 40.9 (34.0-46.0) % Plt Count 87 L 83 L (150-450) k/uL Comprehensive Metabolic Panel 07/19/20 07/20/20 Range/Units 18:56 08:18 Sodium 136 L 136 L (137-145) mmol/L Potassium 4.3 3.6 (3.5-5.1) mmol/L Chloride 97 L 98 (98-107) mmol/L Carbon Dioxide 34 H 34 H (22-30) mmol/L BUN 10 11 (7-17) mg/dL Creatinine 0.64 0.65 (0.52-1.04) mg/dL Glucose 326 H 164 H (74-99) mg/dL Calcium 8.6 8.8 (8.4-10.2) mg/dL AST 77 H 81 H (14-36) U/L ALT 56 H 65 H (4-34) U/L Alkaline Phosphatase 209 H 161 H (38-126) U/L Total Protein 6.9 6.8 (6.3-8.2) g/dL Albumin 3.8 3.7 (3.5-5.0) g/dL Current Medications Generic Name Dose Route Start Last Admin Trade Name Freq PRN Reason Stop Dose Admin Aminophylline 100 mg 07/20/20 08:35 Aminophylline 500 Mg/20 Ml Vial IV 07/20/20 23:00 ONCE PRN Patient Response Aspirin 81 mg 07/20/20 09:00 07/20/20 09:24 Aspirin 81 Mg PO 81 mg DAILY BERTHA Administration Atorvastatin Calcium 40 mg 07/20/20 09:00 07/20/20 09:24 Atorvastatin 40 Mg Tab PO 40 mg DAILY BERTHA Administration Caffeine Citrate 60 mg 07/20/20 08:35 Caffeine Citrate 60 Mg/3 Ml Vial IV 07/20/20 23:00 ONCE PRN Patient Response Furosemide 20 mg 07/20/20 21:00 Furosemide 20 Mg Tab PO HS [facility] Gabapentin 800 mg 07/20/20 09:00 07/20/20 09:24 Gabapentin 400 Mg Cap PO 800 mg BID BERTHA Administration Magnesium Sulfate/Dextrose 1 100 mls @ 100 mls/hr 07/20/20 10:00 gm/ IV Solution IVPB 07/20/20 13:59 Q1H [facility] Insulin Aspart 0 unit 07/19/20 21:00 07/20/20 09:10 Insulin Aspart (Novolog) 100 Unit/Ml Vial SQ Not Given ACHS [facility] Protocol Insulin Detemir 20 unit 07/19/20 22:45 07/19/20 23:07 Insulin Detemir (Levemir) 100 Unit/Ml Syr SQ 20 unit HS [facility] Administration Isosorbide Mononitrate 30 mg 07/20/20 09:00 07/20/20 09:24 Isosorbide Mononitrate Er 30 Mg Tab.Er.24h PO 30 mg DAILY [facility] Administration Lorazepam 2 mg 07/19/20 22:45 07/20/20 09:23 Lorazepam 1 Mg Tab PO 2 mg TID [facility] Administration Magnesium Oxide 400 mg 07/19/20 21:00 07/19/20 21:51 Magnesium Oxide 400 Mg Tab PO 400 mg BID [facility] Administration Metoprolol Succinate 25 mg 07/20/20 21:00 Metoprolol Succinate (Er) 25 Mg Tab.Er.24h PO HS [facility] Nitroglycerin 0.4 mg 07/19/20 20:54 Nitroglycerin Sl Tabs 0.4 Mg Tab SUBLINGUAL Q5M PRN Chest Pain Quetiapine Fumarate 800 mg 07/19/20 22:45 07/19/20 23:08 Quetiapine 400 Mg Tab PO 800 mg HS [facility] Administration Intake and Output 07/19/20 07/20/20 07/20/20 22:59 06:59 14:59 Intake Total 237 Balance 237 Intake: Oral 237 Other: Voiding Method Toilet Toilet Toilet # Voids 3 3 Weight 145.15 kg 07/20/20 08:18 07/20/20 08:18 EKG Interpretations (text) EKG shows normal sinus rhythm with lateral T-wave inversion Assessment and Plan Plan: Assessment and plan #1 chest discomfort, symptoms suggestive of unstable angina. Troponins negative 3. EKG shows normal sinus rhythm with lateral T-wave inversion, CTA of the chest negative for pulmonary embolism, it did indicate some coronary calcifica tion #2 diabetes #3 hypertension #4 hyperlipidemia #5 morbid obesity #6 sleep apnea #7 thrombocytopenia #8 abnormal liver function tests Plan We will obtain an echocardiogram with Doppler study. Start the patient on Lipitor 40 mg daily, monitor the liver function test, if they prove we will increase Lipitor to 80 mg daily. We will also decrease the aspirin 81 mg daily. Resume her beta bonnie. She will go for Lexiscan stress test today. Pending the results of that further recommendations will be made. DNP note has been reviewed, I agree with a documented findings and plan of care. Patient was seen and examined.
[2020-07-20] MEDS: MAGNESIUM SULFATE-D5W PMX 1 GM in DEXTROSE/WATER 1 100ML.BAG IVPB SCH ×4 (12:27→17:23)
[2020-07-20 12:36] LABS: Glucose,Whole Blood 178 mg/dL (75-99)
--- NOTE | 2020-07-20 13:00 | ECHOF ---
Referral Reason:chest pain MEASUREMENTS -------- HEIGHT: 165.1 cm WEIGHT: 145.1 kg BP: RVIDd: 3.7 cm (< 3.3) IVSd: 1.5 cm (0.6 - 1.1) LVIDd: 4.3 cm (3.9 - 5.3) LVPWd: 1.7 cm (0.6 - 1.1) IVSs: 1.9 cm LVIDs: 3.2 cm LVPWs: 2.1 cm MV EXCURSION: 26.247 mm (> 18.000) MV EF SLOPE: 81 mm/s (70 - 150) EPSS: 0.3 cm MV E Curtis: 0.54 m/s MV DecT: 227 ms MV A Curtis: 1.15 m/s MV E/A Ratio: 0.47 FINDINGS -------- Sinus rhythm. Morbid Obesity The left ventricular size is normal. There is moderate concentric left ventricular hypertrophy. O verall left ventricular systolic function is low-normal with, an EF between 50 - 55 %. The right ventricle is normal in size. The left atrial size is normal. The right atrial size is normal. 1.5MG OF DEFINITY UTLIZED: 2 OR MORE WALL SEGMENTS NOT VISUALIZED. The aortic valve was not well visualized. The mitral valve was not well visualized. The tricuspid valve was not well visualized. Unable to estimate RVSP due to inadequate TR jet spect ral doppler profile. The pulmonic valve was not well visualized. The aortic root size is normal. There is a trivial pericardial effusion present. CONCLUSIONS -------- 1. Morbid Obesity 2. The left ventricular size is normal. 3. There is moderate concentric left ventricular hypertrophy. 4. Overall left ventricular systolic function is low-normal with, an EF between 50 - 55 %. 5. The right ventricle is normal in size. 6. The left atrial size is normal. 7. The right atrial size is normal. 8. 1.5MG OF DEFINITY UTLIZED: 2 OR MORE WALL SEGMENTS NOT VISUALIZED. 9. The aortic valve was not well visualized. 10. The mitral valve was not well visualized. 11. The tricuspid valve was not well visualized. 12. Unable to estimate RVSP due to inadequate TR jet spectral doppler profile. 13. The pulmonic valve was not well visualized. 14. There is a trivial pericardial effusion present. [employer]ER: Nadine Harrell RDCS
--- NOTE | 2020-07-20 14:16 | NM ---
EXAMINATION TYPE: NM stress lexiscan cardiolite DATE OF EXAM: 07/20/2020 COMPARISON: NONE HISTORY: Chest pain TECHNIQUE: After the intravenous administration of 9.7 mCi Tc 99m Sestamibi - Cardiolite resting SPE CT images acquired 60 minutes post injection. The patient received 0.4mg Lexiscan, 27 mCi Tc 99m Sestamibi - Stress images obtained 60 minutes post injection FINDINGS: Review of stress and rest SPECT images demonstrates no distinct perfusion abnormality. Gated analysi s shows normal wall motion with an estimated left ventricular ejection fraction of 56 %. IMPRESSION: No scintigraphic evidence for reversible ischemia.
[2020-07-20 15:40] VITALS: BP 113/68; PULSE 97; TEMP 98.2
--- NOTE | 2020-07-20 16:28 | P.DS ---
Providers Date of admission: 07/19/20 20:56 Expected date of discharge: 07/20/20 Attending physician: Leatha Stauffer MD Consults: 07/19/20 20:54 Consult Physician Urgent Consulting Provider: Juanita Grewal Consult Reason/Comments: cp Do you want consulting provider notified?: Yes Primary care physician: [facility] Course: Patient is a 59-year-old female with a PMH of type II DM and hypertension who presented to the ED with complaints of chest discomfort and dyspnea on exertion. The patient reports that her symptoms of an ongoing for the past 3-4 weeks, described as a substernal chest discomfort both at rest and with exertion, occurring constantly, ranging in severity from 3-8 out of 10, nonradiating, without clear alleviating or exacerbating features. She denied associated shortness of breath, nausea, vomiting, palpitations, or dizziness. Reports significantly decreased exercise tolerance with feeling winded after walking from her front door to the mailbox and back. Reports a chronic nonproductive cough. Also notes chronic bilateral lower extremity pitting edema though denied orthopnea or PND. Denied any additional complaints. Denied fever, chills, abdominal pain, or diarrhea. In the emergency room, an EKG revealed normal sinus rhythm with T-wave inversion in lead 1 with flattening in precordial leads. Chest CTA was negative for PE the revealed coronary calcifications and abdominal varices, with chest x-ray unremarkable. Laboratory evaluation revealed a platelet count of 87, sodium 136, chloride 97, CO2 34, glucose 326, magnesium 1.3, troponin less than 0.012, alk phos 29, AST 77, ALT 56, and pro- BNP 28. Troponins were cycled and acute coronary syndrome was ruled out. Cardiology recommended stress test. Stress test was negative.echocardiogram showed EF 50- 55% with moderate concentric LVH. Cardiology cleared the patient for discharge. Her magnesium was replaced. Patient was seen and examined. No acute events overnight. Patient reports fatigue. She denies any chest pain, shortness breath or palpitations. No nausea or vomiting. No fever or chills. General: [non toxic], [no distress], [appears at stated age], morbidly obese Derm: [warm], [dry] Head: [atraumatic], [normocephalic], [symmetric] Eyes: [EOMI], [no lid lag], [anicteric sclera] Mouth: [no lip lesion], [mucus membranes moist] Cardiovascular: [S1S2 reg], [no murmur], [positive DP pulse bilateral], Lungs: [CTA bilateral], [no rhonchi, no rales] , [no accessory muscle use] Abdominal: [soft], [ nontender to palpation], [no guarding], [no appreciable organomegaly] Ext: [no gross muscle atrophy], [1+ pitting LE edema], [no contractures] Neuro: [no focal neuro deficits] Psych: [Alert], [oriented], [appropriate affect] Chest discomfort, rule out ACS -Cardiology consult - obtain stress test (negative) -Cardiac monitoring -Troponin < 0.012 x 3, ACS ruled out -Continue with aspirin Metabolic alkalosis, possibly secondary to hypercapnia -ABG not done but patient is not in respiratory distress. -She would benefit from sleep study to be determined by PCP Hypomagnesemia -Replace and monitor Thrombocytopenia, chronic, at baseline -Monitor for now Type II DM with hyperglycemia -Lispro insulin sliding scale blood glucose monitoring -Levemir 20 units daily at bedtime Abnormal LFTs -Monitor for now -Likely secondary to steatohepatitis DVT prophylaxis -IPCDs [Patient admitted for chest pain. ACS ruled out. Stress is negative. Cleared by cardiology. Anticipate DC home today.] Pertinent Studies: CXR, Chest CTA, Echo, Stress test Patient Condition at Discharge: Stable Plan - Discharge Summary Discharge Rx Participant: No New Discharge Prescriptions: New RX: Isosorbide Mononitrate ER [Imdur] 30 mg PO DAILY #30 tab.er.24h RX: Atorvastatin [Lipitor] 40 mg PO DAILY #30 tab RX: Nitroglycerin Sl Tabs [Nitrostat] 0.4 mg SUBLINGUAL Q5M PRN #14 tab PRN Reason: Chest Pain Continue RX: QUEtiapine FUMARATE [SEROquel] 800 mg PO HS RX: Vitamin B Complex 1 cap PO HS RX: LORazepam [Ativan] 2 mg PO TID RX: Gabapentin [Neurontin] 800 mg PO BID RX: Aspirin [Mission Aspirin EC] 81 mg PO HS RX: Zolpidem [Ambien] 10 mg PO HS RX: Ascorbic Acid [Vitamin C] 1,000 mg PO HS RX: Insulin Regular, Human [NovoLIN R] See Protocol SQ BID RX: Insulin NPH Human Isophane [NovoLIN N] See Protocol SQ BID RX: Magnesium 250 mg PO HS RX: Metoprolol Succinate (ER) [Toprol XL] 25 mg PO HS RX: Furosemide [Lasix] 20 mg PO HS RX: Cyclobenzaprine [Flexeril] 10 mg PO HS RX: OXcarbazepine [Trileptal] 600 mg PO HS RX: OXcarbazepine [Trileptal] 300 mg PO DAILY RX: Calcium Carbonate [Calcium] 600 mg PO HS Discharge Medication List RX: LORazepam [Ativan] 2 mg PO TID 09/03/18 [History] RX: QUEtiapine FUMARATE [SEROquel] 800 mg PO HS 09/03/18 [History] RX: Vitamin B Complex 1 cap PO HS 09/03/18 [History] RX: Aspirin [Mission Aspirin EC] 81 mg PO HS 02/12/19 [History] RX: Gabapentin [Neurontin] 800 mg PO BID 02/12/19 [History] RX: Ascorbic Acid [Vitamin C] 1,000 mg PO HS 02/09/20 [History] RX: Insulin NPH Human Isophane [NovoLIN N] See Protocol SQ BID 02/09/20 [History] RX: Insulin Regular, Human [NovoLIN R] See Protocol SQ BID 02/09/20 [History] RX: Zolpidem [Ambien] 10 mg PO HS 02/09/20 [History] RX: Calcium Carbonate [Calcium] 600 mg PO HS 07/19/20 [History] RX: Cyclobenzaprine [Flexeril] 10 mg PO HS 07/19/20 [History] RX: Furosemide [Lasix] 20 mg PO HS 07/19/20 [History] RX: Magnesium 250 mg PO HS 07/19/20 [History] RX: Metoprolol Succinate (ER) [Toprol XL] 25 mg PO HS 07/19/20 [History] RX: OXcarbazepine [Trileptal] 300 mg PO DAILY 07/19/20 [History] RX: OXcarbazepine [Trileptal] 600 mg PO HS 07/19/20 [History] RX: Atorvastatin [Lipitor] 40 mg PO DAILY #30 tab 07/20/20 [Rx] RX: Isosorbide Mononitrate ER [Imdur] 30 mg PO DAILY #30 tab.er.24h 07/20/20 [Rx] RX: Nitroglycerin Sl Tabs [Nitrostat] 0.4 mg SUBLINGUAL Q5M PRN #14 tab 07/20/20 [Rx] Follow up Appointment(s)/Referral(s): Arleen Richardson MD [Primary Care Provider] - 1-2 days Tony Hall MD [STAFF PHYSICIAN] - 1 Week Activity/Diet/Wound Care/Special Instructions: Diet: Cardiac FU PCP within 3 days. FU within Cardiology within 1 week. Come back to the ED or call 911 for worsening chest pain, SOB, dizziness, palpitations. Discharge Disposition: HOME SELF-CARE
[2020-07-20 17:15] LABS: Glucose,Whole Blood 304 mg/dL (75-99)
[2020-07-20] MEDS ORDERED: FUROSEMIDE 20 MG TAB PO SCH (21:00)
[2020-07-20] MEDS ORDERED: METOPROLOL SUCCINATE (ER) 25 MG TAB.ER.24H PO SCH (21:00)
--- NOTE | 2020-07-22 23:30 | EST ---
EXERCISE STRESS AGE: 59 SEX: Female HT: 5'5" WT: 320 PROTOCOL: Lexiscan Cardiolite STAGE: DURATION OF EXERCISE: BASELINE HEART RATE: 92 BASELINE BLOOD PRESSURE: 117/85 MAXIMUM HEART RATE: 100 MAXIMUM BLOOD PRESSURE: 129/72 85% MPHR: 138 100% MPHR: 162 METS: INDICATION: Chest pain. CLINICAL INFORMATION: STRESS DATA: Heart rate 92, pressure is 117/85 mmHg. Baseline EKG showed sinus mechanism with ST changes in the high lateral leads. 0.4 mg of Lexiscan given over 15 seconds per protocol. Max heart rate was 100 beats per minute and maximum pressure was 129/72 mmHg. Clinically, the patient did not have any symptoms and the EKG did not show any significant ST or T-wave abnormalities concerning for ischemia. CONCLUSION: 1. Nondiagnostic electrocardiogram stress testing in response to Lexiscan. 2. Please follow up on the Cardiolite portion on a separate report from Radiology Department. MMODL / IJN: [id number] /
== END 2020-07-20 18:22 | disposition home or self-care (01) ==
LOC: EC 18:01 → 3NCARDOBS 20:56
PROVIDERS: ADMIT Internal Medicine; ATTEND Internal Medicine
DX: R07.89 Other chest pain (principal); R06.09 Other forms of dyspnea; E87.3 Alkalosis; E11.65 Type 2 diabetes mellitus with hyperglycemia; E83.42 Hypomagnesemia; D69.6 Thrombocytopenia, unspecified; R94.5 Abnormal results of liver function studies; R05 Cough; I10 Essential (primary) hypertension; F43.10 Post-traumatic stress disorder, unspecified; F32.9 Major depressive disorder, single episode, unspecified; F41.9 Anxiety disorder, unspecified; R60.9 Edema, unspecified; I86.8 Varicose veins of other specified sites; E66.01 Morbid (severe) obesity due to excess calories; Z68.43 Body mass index [BMI] 50.0-59.9, adult; G47.30 Sleep apnea, unspecified; E78.5 Hyperlipidemia, unspecified; I25.10 Atherosclerotic heart disease of native coronary artery without angina pectoris; Z79.82 Long term (current) use of aspirin; Z79.899 Other long term (current) drug therapy; Z79.4 Long term (current) use of insulin; Z88.5 Allergy status to narcotic agent; Z91.048 Other nonmedicinal substance allergy status; Z87.820 Personal history of traumatic brain injury; Z90.49 Acquired absence of other specified parts of digestive tract; Z90.710 Acquired absence of both cervix and uterus; Z98.891 History of uterine scar from previous surgery; Z82.5 Family history of asthma and other chronic lower respiratory diseases; Z82.49 Family history of ischemic heart disease and other diseases of the circulatory system; Z80.1 Family history of malignant neoplasm of trachea, bronchus and lung; Z80.0 Family history of malignant neoplasm of digestive organs; Z80.42 Family history of malignant neoplasm of prostate
CPT/HCPCS: 93005 ×2; 96365; 96375; 99285; 36415; 93017; 85379; 83880; 80061; 80053 ×2; 83735 ×2; 84484 ×2; 85025; 85027; 85610; 85730; 83036; 71046; 71275; 78452; G0378 ×2; C8929; A9500; J2270; J3475 ×2; J2785; Q9950; Q9967; 93306

== ENCOUNTER → 2020-08-16 | Outpatient (CLI) | payer MEDICARE ==
[2020-08-16 17:05] LABS: HGB 13.8 gm/dL (11.4-16.0); MCH 27.1 pg (25.0-35.0); MCHC 32.1 g/dL (31.0-37.0); MCV 84.3 fL (80.0-100.0); Mean Platelet Volume 7.8; RDW 15.9 % (11.5-15.5)
[2020-08-16 17:22] LABS: Platelet Count 90 k/uL (150-450)
[2020-08-17 01:05] LABS: Hemoglobin A1C 9.9 % (4.0-6.0)
[2020-08-17 01:37] LABS: Ferritin 60.7 ng/mL (10.0-291.0)
[2020-08-17 01:46] LABS: Albumin 4.1 g/dL (3.80-4.90); Albumin/Globulin Ratio 1.64 (1.60-3.17); Bilirubin, Conjugated 0.2 mg/dL (0.20-0.40); Bilirubin,Unconjugated 0.2 mg/dL; Globulin 2.5 g/dL (1.6-3.3); Total Bilirubin 0.4 mg/dL (0.3-1.2); Total Protein 6.6 g/dL (6.2-8.2)
[2020-08-17 01:47] LABS: % Iron Saturation 16.58 (12.00-45.00); African American GFR (CKD) 81.7 (60.0-200.0); Anion Gap 7.4 mmol/L (4.00-12.00); BUN/Creat Ratio 11.11 Ratio (12.00-20.00); Calcium 8.6 mg/dL (8.7-10.3); Carbon Dioxide 31.6 mmol/L (21.6-31.8); Magnesium 1.3 mg/dL (1.5-2.4); Non-African American GFR(CKD) 70.5 (60.0-200.0); Potassium 4.2 mmol/L (3.5-5.5)
== END | disposition home or self-care (01) ==
LOC: LABWHC1 15:36
PROVIDERS: ATTEND Nurse Practitioner Adult Health
DX: I10 Essential (primary) hypertension (principal); E11.65 Type 2 diabetes mellitus with hyperglycemia; R53.83 Other fatigue; R74.8 Abnormal levels of other serum enzymes
CPT/HCPCS: 36415; 80053; 82248; 82607; 82728; 83036; 83540; 83550; 83735; 84443; 85027

== ENCOUNTER → 2020-08-16 | Outpatient (CLI) | payer MEDICARE | END | disposition home or self-care (01) | LOC: LABPAT 15:39 | PROVIDERS: ATTEND Internal Medicine Interventional Cardiology | DX: Z53.9 Procedure and treatment not carried out, unspecified reason (principal) ==

== ENCOUNTER 2020-08-17 09:16 | Day surgery (SDC) | payer MEDICARE ==
[2020-08-15 12:20] VITALS: BMI 49.1
[~2020-08-17 09:16] MED LIST: ALPRAZolam 0.25 MG TAB PO PRN; ALPRAZolam 0.5 MG TAB PO PRN; ASPIRIN 325 MG TAB PO STA; ATORVASTATIN 80 MG TAB PO STA; NITROGLYCERIN SL TABS 0.4 MG TAB SUBLINGUAL PRN; SODIUM CHLORIDE 0.9% 1,000 ML in EMPTY BAG 1 BAG IV ONE
[2020-08-17] MEDS ORDERED: SODIUM CHLORIDE 0.9% 1,000 ML IV ONE (09:35)
[2020-08-17 10:00] VITALS: RESP 16; TEMP 98.6
[2020-08-17 10:01] LABS: Glucose,Whole Blood 119 mg/dL (75-99)
[2020-08-17] MEDS ORDERED: fentaNYL (PF) 50 MCG/ML 2 ML AMP IV ONE (11:50)
[2020-08-17] MEDS ORDERED: MIDAZOLAM 2 MG/2 ML VIAL IV ONE ×2 (11:50→11:58)
[2020-08-17] MEDS ORDERED: LIDOCAINE 1% INJ 10MG/ML (20 ML MDV) SQ ONE (11:56)
[2020-08-17] MEDS: VERAPAMIL SYRINGE (5 MG/10 ML) INTRAARTER ONE ×2 (11:58→12:09)
[2020-08-17] MEDS ORDERED: HEPARIN SODIUM 1,000 UN/ML (10ML VL) IV ONE (12:00)
[2020-08-17] MEDS ORDERED: IOPAMIDOL-370 125ML BTL INJ ONE (12:09)
[2020-08-17] MEDS ORDERED: RX INFO: IV CONTRAST WAS GIVEN 1 EACH MISC MISCELLANE PRN (12:12)
[2020-08-17] MEDS ORDERED: SODIUM CHLORIDE 0.9% 1,000 ML IV SCH (12:15)
[2020-08-17] MEDS ORDERED: ACETAMINOPHEN TAB 325 MG TAB ONE (12:40)
--- NOTE | 2020-08-17 13:46 | CC ---
CARDIAC CATHETERIZATION REPORT DATE OF SERVICE: August 17, 2020 PERFORMING PHYSICIAN: Tony Hall MD. PROCEDURE PERFORMED: 1. Selective right and left coronary angiogram. 2. Left heart catheterization. INDICATION: This is a 59-year-old female patient with hypertension and dyslipidemia and obesity and diabetes who was experiencing symptoms of chest discomfort/pressure with exertion concerning for severe underlying coronary artery disease. Because of that, a heart catheterization was advised. APPROACH: Right radial artery. COMPLICATION: None. LEVEL OF SEDATION: Moderate with sedation length of 15 minutes. PROCEDURE DESCRIPTION: After obtaining an informed consent, the patient was brought to the cardiac geoscience laboratory technician. The right radial artery was cannulated using micropuncture technique, the micropuncture wire passed easily, then I placed a 6-Prydeinig sheath at the right radial artery. After that, I gave the patient 2 mg of verapamil IA and 10,000 units of heparin IV. Selective right and left coronary angiogram performed with JR4 and JL3.5 catheters. Left heart catheterization was performed using 5-Prydeinig pigtail catheter. The procedure was completed without any complication. SELECTIVE CORONARY ANGIOGRAM: 1. The RCA is a large caliber vessel. It is a dominant vessel and appeared to be angiographically normal. It distally bifurcates into PDA and PLV branches both appeared to be angiographically normal. 2. The left main is angiographically normal. It bifurcates into LCX and LAD. 3. The LCX is a large caliber vessel. It is a nondominant vessel. The LCX is angiographically normal and the midportion gives rise into a large OM branch which appeared to be normal. The left circumflex continued after that as a small-caliber vessel in the AV groove. 4. The LAD: The proximal LAD appeared to have mild disease only. The mid LAD has a lesion appeared to be in the range of 40% to 50%. This is by the bifurcation of the large diagonal branch. The LAD distally appeared to be normal. HEMODYNAMICS: The LVEDP was 20 mmHg without significant gradient across aortic valve. CONCLUSION: 1. Intermediate disease involving the mid LAD. 2. Elevated LVEDP. POSTPROCEDURE MANAGEMENT: 1. Aggressive cholesterol control. 2. Risk factor modifications. 3. Follow up with the patient. MMODL / IJN: [id number] /
[2020-08-17] MEDS ORDERED: hydrALAZINE HCL 20 MG/ML 1 ML VIAL IVP PRN (15:09)
[2020-08-17 16:46] VITALS: BP 164/80; PULSE 79
== END 2020-08-17 17:45 | disposition home or self-care (01) ==
LOC: CATHCVL 09:16
PROVIDERS: ATTEND Internal Medicine Interventional Cardiology
DX: I25.110 Atherosclerotic heart disease of native coronary artery with unstable angina pectoris (principal); I10 Essential (primary) hypertension; E11.9 Type 2 diabetes mellitus without complications; E66.9 Obesity, unspecified; E78.5 Hyperlipidemia, unspecified; Z79.899 Other long term (current) drug therapy; Z79.4 Long term (current) use of insulin; Z88.5 Allergy status to narcotic agent; Z68.43 Body mass index [BMI] 50.0-59.9, adult
CPT/HCPCS: 93458; C1769; C1894; J2250; J0360; J2001; J3010; J1644; Q9967

== ENCOUNTER 2021-04-23 07:17 | Emergency (ER) | payer MEDICARE ==
[2021-04-23] MEDS ORDERED: SODIUM CHLORIDE 0.9% 1,000 ML IV STA (07:29)
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
[2021-04-23 08:10] LABS: Basophils % (A) 1 %; Eosinophils # (A) 0.1 k/uL (0-0.7); Eosinophils % (A) 3 %; HCT 38.5 % (34.0-46.0); HGB 13.2 gm/dL (11.4-16.0); Lymphocytes # (A) 1.7 k/uL (1.0-4.8); Lymphocytes % (A) 37 %; MCH 28.4 pg (25.0-35.0); MCHC 34.2 g/dL (31.0-37.0); Mean Platelet Volume 8.5; Monocytes # (A) 0.4 k/uL (0-1.0); Monocytes % (A) 7 %; Neutrophils # (A) 2.3 k/uL (1.3-7.7); Neutrophils % (A) 50 %; Platelet Count 103 k/uL (150-450); RBC 4.64 m/uL (3.80-5.40); RDW 15.4 % (11.5-15.5); WBC 4.7 k/uL (3.8-10.6)
[2021-04-23 08:25] LABS: INR 1.1 (<1.2); Prothrombin Time 11.6 sec (9.0-12.0)
[2021-04-23 08:26] LABS: ALT 35 U/L (4-34); AST 53 U/L (14-36); African American GFR (CKD) >90 (>60 ml/min/1.73 sqM); Albumin 3.7 g/dL (3.5-5.0); Alkaline Phosphatase 153 U/L (38-126); Anion Gap 7 mmol/L; Blood Urea Nitrogen 13 mg/dL (7-17); Calcium 9.1 mg/dL (8.4-10.2); Carbon Dioxide 38 mmol/L (22-30); Chloride 95 mmol/L (98-107); Creatine Kinase 571 U/L (30-135); Glucose 219 mg/dL (74-99); Magnesium 1.6 mg/dL (1.6-2.3); Non-African American GFR(CKD) >90 (>60 ml/min/1.73 sqM); Partial Thromboplastin Time 23.9 sec (22.0-30.0); Phosphorus 2.8 mg/dL (2.5-4.5); Potassium 3.6 mmol/L (3.5-5.1); Sodium 140 mmol/L (137-145); Total Bilirubin 0.3 mg/dL (0.2-1.3); Total Protein 6.5 g/dL (6.3-8.2)
[2021-04-23 08:41] LABS: T4, Free (Free Thyroxine) 0.69 ng/dL (0.78-2.19)
--- NOTE | 2021-04-23 08:43 | CT ---
EXAMINATION TYPE: CT brain wo con DATE OF EXAM: 04/23/2021 HISTORY: Fall, Weakness. CT DLP: 1099.4 mGycm. Automated Exposure Control for Dose Reduction was Utilized. TECHNIQUE: CT scan of the head is performed without contrast. COMPARISON: None FINDINGS: There is no acute intracranial hemorrhage, midline shift, or mass effect identified. Generalized volu me loss. The ventricles, sulci, and cisterns are normal in size and configuration. No acute extra-axi al fluid collection. No depressed calvarial fracture. Visualized sinuses and mastoid air cells are cl ear. IMPRESSION: No acute intracranial hemorrhage, midline shift, or mass effect.
--- NOTE | 2021-04-23 08:56 | XR ---
EXAMINATION TYPE: XR chest 2V DATE OF EXAM: 04/23/2021 CLINICAL HISTORY: Weakness. TECHNIQUE: Frontal and lateral view of the chest. COMPARISON: 07/19/2020 x-ray and CTA chest FINDINGS: Bibasilar opacities related to overlapping breast soft tissue. The cardiomediastinal silho uette is unchanged and enlarged, demonstrated to be prominent pericardial and mediastinal fat on 07/19 CTA comparison. Pulmonary vasculature is normal. There is no focal air space opacity. No pleur al effusion. No pneumothorax seen. Diffuse bridging osteophytosis of the visualized spine. IMPRESSION: 1. No acute cardiopulmonary process. 2. Bridging osteophytosis of the visualized spine likely represents diffuse idiopathic skeletal hype rostosis (DISH).
[2021-04-23 11:21] VITALS: RESP 20; TEMP 98
[2021-04-23 11:38] LABS: Appearance,Urine Cloudy (Clear); Bacteria,Urine Rare /hpf; Bilirubin,Urine Negative (Negative); Blood,Urine Negative (Negative); Color,Urine Yellow; Glucose,Urine (UA) Negative (Negative); Hyaline Casts,Urine 1 /lpf (0-2); Ketones,Urine Negative (Negative); Leukocyte Esterase,Urine Trace (Negative); Mucus,Urine Few /hpf; Nitrite,Urine Negative (Negative); Protein,Urine 1+ (Negative); RBC,Urine 1 /hpf (0-5); Specific Gravity,Urine 1.032 (1.001-1.035); Squamous Epithelial Cell,Urine 2 /hpf (0-4); WBC,Urine 3 /hpf (0-5)
[2021-04-23 13:23] VITALS: BP 122/77; PULSE 68
== END 2021-04-23 13:10 | disposition home or self-care (01) ==
LOC: EC 07:17
DX: R53.1 Weakness (principal); E11.9 Type 2 diabetes mellitus without complications; E78.5 Hyperlipidemia, unspecified; I10 Essential (primary) hypertension; Z79.4 Long term (current) use of insulin; Z87.820 Personal history of traumatic brain injury; Z99.81 Dependence on supplemental oxygen
CPT/HCPCS: 36415; 70450; 71046; 80053; 80183; 81001; 82550; 83605; 83735; 84100; 84439; 84443; 84481; 84484; 85025; 85610; 85730; 93005

== ENCOUNTER 2021-05-20 04:11 | Observation (INO) | payer MEDICARE ==
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
[2021-05-20 04:23] LABS: Glucose,Whole Blood 110 mg/dL (75-99)
[2021-05-20] MEDS ORDERED: SODIUM CHLORIDE 0.9% 1,000 ML IV STA ×2 (04:24→06:32)
[2021-05-20] MEDS ORDERED: LORazepam 2 MG/ML INJ IV STA (04:25)
[2021-05-20 05:14] LABS: Basophils % (A) 1 %; Eosinophils # (A) 0.1 k/uL (0-0.7); Eosinophils % (A) 2 %; HCT 43.2 % (34.0-46.0); HGB 14.1 gm/dL (11.4-16.0); Lymphocytes # (A) 1.5 k/uL (1.0-4.8); Lymphocytes % (A) 35 %; MCH 27.7 pg (25.0-35.0); MCHC 32.6 g/dL (31.0-37.0); Mean Platelet Volume 8.5; Monocytes # (A) 0.4 k/uL (0-1.0); Monocytes % (A) 9 %; Neutrophils # (A) 2.3 k/uL (1.3-7.7); Neutrophils % (A) 52 %; Platelet Count 107 k/uL (150-450); RBC 5.08 m/uL (3.80-5.40); RDW 15.7 % (11.5-15.5); WBC 4.4 k/uL (3.8-10.6)
[2021-05-20 05:29] LABS: ALT 26 U/L (4-34); AST 41 U/L (14-36); African American GFR (CKD) >90 (>60 ml/min/1.73 sqM); Albumin 3.8 g/dL (3.5-5.0); Alkaline Phosphatase 138 U/L (38-126); Anion Gap 8 mmol/L; Blood Urea Nitrogen 14 mg/dL (7-17); Calcium 8.9 mg/dL (8.4-10.2); Carbon Dioxide 32 mmol/L (22-30); Chloride 102 mmol/L (98-107); Creatine Kinase 255 U/L (30-135); Glucose 129 mg/dL (74-99); Magnesium 1.6 mg/dL (1.6-2.3); Non-African American GFR(CKD) >90 (>60 ml/min/1.73 sqM); Potassium 3.7 mmol/L (3.5-5.1); Sodium 142 mmol/L (137-145); Total Bilirubin 0.5 mg/dL (0.2-1.3); Total Protein 6.7 g/dL (6.3-8.2)
[2021-05-20] MEDS ORDERED: DIAZEPAM 5 MG/ML 2 ML INJ IVP STA (06:32)
[2021-05-20] MEDS ORDERED: ONDANSETRON 4 MG/2 ML VIAL IVP STA (06:32)
[2021-05-20] MEDS ORDERED: NITROGLYCERIN SL TABS 0.4 MG TAB SUBLINGUAL PRN (06:37)
[2021-05-20] MEDS ORDERED: ASPIRIN 81 MG PO STA (06:37)
[2021-05-20] MEDS: SODIUM CHLORIDE 0.9% 1,000 ML IV SCH (07:12)
--- NOTE | 2021-05-20 08:20 | XR ---
EXAMINATION TYPE: XR chest 1V DATE OF EXAM: 05/20/2021 COMPARISON: Chest x-ray 04/23/2021, CT 07/19/2020 HISTORY: Shortness of breath and tremors TECHNIQUE: Single frontal view of the chest is obtained. FINDINGS: Technique is apical lordotic. No evident airspace disease, pneumothorax, or pleural effusi on. Heart is enlarged as on prior, prominent epicardial fat pads, mediastinal fat have been noted on prior CT. Right hemidiaphragm remains elevated. Examination somewhat limited by patient body habitus. IMPRESSION: No acute process. Essentially stable findings.
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
[2021-05-20] MEDS: FUROSEMIDE 20 MG TAB PO SCH (11:24)
[2021-05-20] MEDS: buPROPion XL 300 MG TAB.ER.24H PO SCH (11:24)
[2021-05-20] MEDS: ESCITALOPRAM 10 MG TAB PO SCH (11:24)
[2021-05-20 12:10] LABS: Glucose,Whole Blood 144 mg/dL (75-99)
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
[2021-05-20] MEDS: INSULIN ASPART (NovoLOG) 100 UNIT/ML VIAL SQ SCH ×3 (13:04→20:55)
[2021-05-20] MEDS: MORPHINE SULFATE 4 MG/ML SYRINGE IV PRN ×2 (14:19→20:56)
[2021-05-20] MEDS: HEPARIN SODIUM,PORCINE/PF 5,000 UNIT/0.5 ML SYRINGE SQ SCH (15:25)
[2021-05-20] MEDS: ONDANSETRON 4 MG/2 ML VIAL IVP PRN (15:25)
[2021-05-20 17:07] LABS: Appearance,Urine Cloudy (Clear); Bacteria,Urine Moderate /hpf; Bilirubin,Urine Negative (Negative); Blood,Urine Negative (Negative); Color,Urine Yellow; Glucose,Urine (UA) Negative (Negative); Hyaline Casts,Urine 12 /lpf (0-2); Ketones,Urine Negative (Negative); Leukocyte Esterase,Urine Negative (Negative); Mucus,Urine Moderate /hpf; Nitrite,Urine Negative (Negative); Protein,Urine Trace (Negative); RBC,Urine 1 /hpf (0-5); Specific Gravity,Urine 1.025 (1.001-1.035); Squamous Epithelial Cell,Urine 1 /hpf (0-4); Urobilinogen,Urine <2.0 mg/dL (<2.0); WBC,Urine 4 /hpf (0-5)
[2021-05-20 17:20] LABS: Glucose,Whole Blood 227 mg/dL (75-99)
[2021-05-20] MEDS: SYMBICORT 160-4.5 MCG INHALER INHALATION SCH (19:22)
[2021-05-20] MEDS: IPRATROPIUM-ALBUTEROL 3 ML NEB INHALATION PRN (19:22)
[2021-05-20 20:41] LABS: Glucose,Whole Blood 292 mg/dL (75-99)
[2021-05-20] MEDS: GABAPENTIN 400 MG CAP PO SCH (20:54)
[2021-05-20] MEDS ORDERED: CYCLOBENZAPRINE 10 MG TAB PO SCH (21:00)
[2021-05-20] MEDS ORDERED: ATORVASTATIN 40 MG TAB PO SCH (21:00)
[2021-05-21] MEDS: HEPARIN SODIUM,PORCINE/PF 5,000 UNIT/0.5 ML SYRINGE SQ SCH ×2 (00:55→08:38)
[2021-05-21] MEDS: MORPHINE SULFATE 4 MG/ML SYRINGE IV PRN ×2 (01:08→08:56)
[2021-05-21] MEDS: LORazepam 2 MG/ML INJ IV PRN ×2 (01:09→08:56)
[2021-05-21 02:03] VITALS: TEMP 98.4
[2021-05-21 07:31] LABS: Glucose,Whole Blood 211 mg/dL (75-99)
[2021-05-21] MEDS: IPRATROPIUM-ALBUTEROL 3 ML NEB INHALATION PRN (07:59)
[2021-05-21] MEDS: SYMBICORT 160-4.5 MCG INHALER INHALATION SCH (07:59)
[2021-05-21 08:03] VITALS: BP 138/81; RESP 16
[2021-05-21] MEDS: SODIUM CHLORIDE 0.9% 1,000 ML IV SCH (08:11)
[2021-05-21] MEDS: INSULIN ASPART (NovoLOG) 100 UNIT/ML VIAL SQ SCH (08:37)
[2021-05-21] MEDS: ESCITALOPRAM 10 MG TAB PO SCH (08:38)
[2021-05-21] MEDS: buPROPion XL 300 MG TAB.ER.24H PO SCH (08:38)
[2021-05-21] MEDS: GABAPENTIN 400 MG CAP PO SCH (08:38)
[2021-05-21] MEDS: FUROSEMIDE 20 MG TAB PO SCH (08:38)
[2021-05-21] MEDS: ONDANSETRON 4 MG/2 ML VIAL IVP PRN (08:55)
[2021-05-21] MEDS ORDERED: ASPIRIN 325 MG TAB PO SCH (09:00)
[2021-05-21] MEDS ORDERED: ISOSORBIDE MONONITRATE ER 30 MG TAB.ER.24H PO SCH (09:00)
[2021-05-21 09:24] LABS: HCT 43.4 % (37.2-46.3); HGB 13.4 g/dL (12.0-15.0); MCH 27.2 pg (27.0-32.0); MCHC 30.9 g/dL (32.0-37.0); MCV 88.2 fL (80.0-97.0); Mean Platelet Volume 10.4 fL (9.5-12.2); Platelet Count 107 X 10*3/uL (140-440); RBC 4.92 X 10*6/uL (4.10-5.20); RDW 15.2 % (11.5-14.5); WBC 5.17 X 10*3/uL (4.50-10.00)
[2021-05-21 10:07] VITALS: PULSE 80
[2021-05-21 12:20] LABS: Glucose,Whole Blood 185 mg/dL (75-99)
--- NOTE | 2021-05-21 12:22 | P.DS ---
Providers Date of admission: 05/20/21 06:37 Expected date of discharge: 05/21/21 Attending physician: Yasmeen Angel MD Consults: 05/20/21 06:37 Consult Physician Urgent Consulting Provider: Juanita Grewal Consult Reason/Comments: cp Do you want consulting provider notified?: Yes Primary care physician: Arleen Richardson Hospital Course: Discharge Diagnosis: Atypical Chest pain accompanied by tremors, cold sweats, shortness of breath, and fatigue, acute coronary event ruled out Chronic bronchitis/COPD Chronic idiopathic Thrombocytopenia Hypertension Hyperlipidemia Insulin-dependent diabetes mellitus with hemoglobin A1c of 8.6% Obstructive sleep apnea BiPAP dependent nightly Hospital Course: Patient is a 60-year-old female with a past medical history of hypertension, hyperlipidemia, insulin-dependent diabetes mellitus, obstructive sleep apnea BiPAP dependent nightly, TBI, chronic bronchitis, diverticulitis with previous bowel resection resulting in temporary colostomy with reversal, chronic back pain, anxiety, and depression. She presented to the emergency department with a chief complaint of generally feeling unwell. Patient reports that approximately 3 weeks ago she began developing increased weakness and fatigue, full body tremors, cold sweats, chest pain, tightness in her throat, and shortness of breath. Patient reports the symptoms waxed and waned throughout the past 3 weeks and have progressively worsened over the past few days. Patient states her symptoms were at an all-time worse last night which is why she came to the emergency room for further evaluation. In the emergency department an EKG was completed showing normal sinus rhythm at 97 bpm with no noted T-wave or ST abnormalities. Chest x-ray was negative for acute cardiopulmonary process. Troponin negative resulting at < 0.012 x 2 draws. CBC revealing thrombocytopenia with platelet count of 107,000, BMP showing no significant abnormalities, liver profile revealing a slightly elevated AST at 41, alkaline phosphatase of 138, and creatinine kinase of 255. Patient was admitted under our services with consultation to cardiology. Cholesterol panel showing low HDL otherwise no significant abnormalities. Hemoglobin A1c was 8.6%, patient educated on importance of maintaining a heart healthy and carb consistent diet. An acute coronary event was ruled out. Patient was also seen and evaluated by physical therapy patient ambulatory without assistance using her rolling walker in which she uses at home to assist with balance. Vital signs stable. Patient encouraged to follow up outpatient with her PCP and exam proctor as directed. Patient is stable for discharge home with her family at this time. Physical exam: Vital signs reviewed and stable. General: Nontoxic, no distress and appears stated age. Morbidly obese. Derm: Skin warm and dry, normal coloration for ethnicity. Head: Atraumatic, normocephalic and symmetric. Eyes: EOMs intact, no lid lag, and anicteric sclera Mouth: no lip lesions, mucus membranes moist Cardiovascular: regular rate and rhythm with normal S1S2, no murmur, positive posterior tibial pulses bilaterally, and cap refill < 2 seconds. Lungs: Respirations even, regular, and unlabored on 2L O2. Lungs CTA bilaterally, no rhonchi, no rales, no wheezing, and no accessory muscle usage. Abdominal: Obese abdomen, taught and nontender to palpation, and no guarding. Ext: ROM intact. No gross muscle atrophy, 1+ pitting lower extremity edema, no contractures Neuro: Speech clear, face symmetrical and CN II-XII grossly intact with no noted focal neuro deficits Psych: Alert and oriented to person, place, time, and situation. Appropriate and pleasant affect. A total of 45 minutes of time were spent preparing this complex discharge summary. Patient Condition at Discharge: Stable Plan - Discharge Summary Discharge Rx Participant: No New Discharge Prescriptions: Continue RX: QUEtiapine FUMARATE [SEROquel] 800 mg PO HS RX: LORazepam [Ativan] 2 mg PO TID RX: Zolpidem [Ambien] 10 mg PO HS PRN PRN Reason: Insomnia RX: Insulin Regular, Human [NovoLIN R] See Protocol SQ BID RX: Insulin NPH Human Isophane [NovoLIN N] See Protocol SQ HS RX: Metoprolol Succinate (ER) [Toprol XL] 25 mg PO HS RX: Furosemide [Lasix] 20 mg PO DAILY RX: Cyclobenzaprine [Flexeril] 10 mg PO HS RX: OXcarbazepine [Trileptal] 300 mg PO HS RX: OXcarbazepine [Trileptal] 600 mg PO DAILY RX: Isosorbide Mononitrate ER [Imdur] 30 mg PO DAILY RX: Atorvastatin [Lipitor] 40 mg PO HS RX: buPROPion HCL [Wellbutrin XL] 300 mg PO DAILY RX: Fluticasone/Salmeterol [Advair 500-50 Diskus] 1 puff INHALATION RT-BID RX: Escitalopram [Lexapro] 10 mg PO DAILY RX: Mag Hydrox/Al Hydrox/Simeth [Maalox] 30 ml PO Q4H PRN PRN Reason: Gi Upset RX: Gabapentin 800 mg PO BID Discharge Medication List RX: LORazepam [Ativan] 2 mg PO TID 09/03/18 [History] RX: QUEtiapine FUMARATE [SEROquel] 800 mg PO HS 09/03/18 [History] RX: Insulin NPH Human Isophane [NovoLIN N] See Protocol SQ HS 02/09/20 [History] RX: Insulin Regular, Human [NovoLIN R] See Protocol SQ BID 02/09/20 [History] RX: Zolpidem [Ambien] 10 mg PO HS PRN 02/09/20 [History] RX: Cyclobenzaprine [Flexeril] 10 mg PO HS 07/19/20 [History] RX: Furosemide [Lasix] 20 mg PO DAILY 07/19/20 [History] RX: Metoprolol Succinate (ER) [Toprol XL] 25 mg PO HS 07/19/20 [History] RX: OXcarbazepine [Trileptal] 300 mg PO HS 07/19/20 [History] RX: OXcarbazepine [Trileptal] 600 mg PO DAILY 07/19/20 [History] RX: Atorvastatin [Lipitor] 40 mg PO HS 08/15/20 [History] RX: Isosorbide Mononitrate ER [Imdur] 30 mg PO DAILY 08/15/20 [History] RX: Escitalopram [Lexapro] 10 mg PO DAILY 04/23/21 [History] RX: Fluticasone/Salmeterol [Advair 500-50 Diskus] 1 puff INHALATION RT-BID 04/23/21 [History] RX: buPROPion HCL [Wellbutrin XL] 300 mg PO DAILY 04/23/21 [History] RX: Gabapentin 800 mg PO BID 05/20/21 [History] RX: Mag Hydrox/Al Hydrox/Simeth [Maalox] 30 ml PO Q4H PRN 05/20/21 [History] Follow up Appointment(s)/Referral(s): Tony Hall MD [STAFF PHYSICIAN] - 06/03/21 10:00 am Arleen Richardson MD [Primary Care Provider] - 1-2 days Activity/Diet/Wound Care/Special Instructions: Activity: As tolerated Diet: Heart healthy low-fat and carb consistent diet. Avoid salt or foods with hidden salts as this makes you retain more water. Special Instructions: You will need to follow up with your primary care doctor, Dr. Richardson in 1-2 days for posthospitalization follow-up appointment. As discussed it is also important to follow-up with Dr. Hall in 2 weeks as recommended by cardiology. Thank you for allowing us to participate in your care, it was a pleasure having you for our patient. Discharge Disposition: HOME SELF-CARE
[2021-05-21 13:34] LABS: African American GFR (CKD) 63.6 (60.0-200.0); Anion Gap 10.8 mmol/L (4.00-12.00); Calcium 8.7 mg/dL (8.7-10.3); Carbon Dioxide 30.2 mmol/L (21.6-31.8); Chol/HDL Ratio 3.07; LDL Cholesterol,Calculated 39.4 mg/dL (0.0-131.0); Magnesium 1.7 mg/dL (1.5-2.4); Non-African American GFR(CKD) 54.9 (60.0-200.0); Potassium 3.7 mmol/L (3.5-5.5); VLDL Calculation 22.6 mg/dL (5.00-40.00)
[2021-05-21 14:19] LABS: Hemoglobin A1C 8.6 % (4.0-6.0)
== END 2021-05-21 13:11 | disposition home or self-care (01) ==
LOC: EC 04:11 → 6NMEDSUR 06:37
PROVIDERS: ADMIT Internal Medicine; ATTEND Internal Medicine
DX: R07.89 Other chest pain (principal); J44.9 Chronic obstructive pulmonary disease, unspecified; D69.3 Immune thrombocytopenic purpura; I10 Essential (primary) hypertension; E78.5 Hyperlipidemia, unspecified; Z20.822 Contact with and (suspected) exposure to COVID-19; E11.65 Type 2 diabetes mellitus with hyperglycemia; Z79.4 Long term (current) use of insulin; I25.10 Atherosclerotic heart disease of native coronary artery without angina pectoris; G47.33 Obstructive sleep apnea (adult) (pediatric); G47.31 Primary central sleep apnea; R53.81 Other malaise; E66.9 Obesity, unspecified; Z68.42 Body mass index [BMI] 45.0-49.9, adult; F17.200 Nicotine dependence, unspecified, uncomplicated; R61 Generalized hyperhidrosis; K57.90 Diverticulosis of intestine, part unspecified, without perforation or abscess without bleeding; F41.9 Anxiety disorder, unspecified; M65.311 Trigger thumb, right thumb; G89.29 Other chronic pain; M54.9 Dorsalgia, unspecified; Z79.899 Other long term (current) drug therapy; Z88.5 Allergy status to narcotic agent; Z73.89 Other problems related to life management difficulty; Z91.048 Other nonmedicinal substance allergy status; Z90.49 Acquired absence of other specified parts of digestive tract; Z90.710 Acquired absence of both cervix and uterus; Z87.820 Personal history of traumatic brain injury; Z82.49 Family history of ischemic heart disease and other diseases of the circulatory system; Z82.5 Family history of asthma and other chronic lower respiratory diseases; Z80.1 Family history of malignant neoplasm of trachea, bronchus and lung; Z80.0 Family history of malignant neoplasm of digestive organs
CPT/HCPCS: 96376 ×2; 96361 ×2; 96372 ×2; 96375 ×2; 93005 ×2; 96374; 99285; 36415; 94640 ×4; 97110; 97162; 97535; 97166; 80061; 80053; 80048; 82550; 83735 ×2; 84100; 84484; 85025; 85027; 81001; 83036; 87635; 71045; G0378 ×2; J2060 ×2; J2270 ×2; J3360; J2405 ×2; J1644 ×2

== ENCOUNTER 2021-10-04 16:13 | Inpatient (IN) | payer MEDICARE ==
[2021-10-04 17:44] LABS: Basophils % (A) 1 %; Eosinophils # (A) 0.1 k/uL (0-0.7); Eosinophils % (A) 1 %; HCT 35.4 % (34.0-46.0); HGB 11.8 gm/dL (11.4-16.0); Lymphocytes # (A) 1.3 k/uL (1.0-4.8); Lymphocytes % (A) 25 %; MCH 28.5 pg (25.0-35.0); MCHC 33.5 g/dL (31.0-37.0); Mean Platelet Volume 8.1; Monocytes # (A) 0.5 k/uL (0-1.0); Monocytes % (A) 9 %; Neutrophils # (A) 3.2 k/uL (1.3-7.7); Neutrophils % (A) 62 %; Platelet Count 110 k/uL (150-450); Poikilocytosis Slight; RBC 4.16 m/uL (3.80-5.40); RDW 15.4 % (11.5-15.5); WBC 5.2 k/uL (3.8-10.6)
--- NOTE | 2021-10-04 17:57 | XR ---
EXAMINATION TYPE: XR chest 2V DATE OF EXAM: 10/04/2021 COMPARISON: NONE HISTORY: Weakness. Pneumonia. TECHNIQUE: 2 views FINDINGS: Exam limited by patient's size. There is coarse interstitial density in the lungs. There is some coalescent airspace infiltrate left lung field. Thoracic aorta is atheromatous. There is slight blunting of the right costophrenic angle. IMPRESSION: There is some interstitial and airspace pneumonia which is mostly new compared to old exa m. This is more on the left side. Mild heart failure is possible. There is probably small right pleur al effusion.
[2021-10-04 18:03] LABS: INR 1.1 (<1.2); Partial Thromboplastin Time 23.9 sec (22.0-30.0); Prothrombin Time 11.2 sec (9.0-12.0)
[2021-10-04 18:17] LABS: ALT 79 U/L (4-34); AST 171 U/L (14-36); African American GFR (CKD) >90 (>60 ml/min/1.73 sqM); Albumin 2.9 g/dL (3.5-5.0); Alkaline Phosphatase 84 U/L (38-126); Anion Gap 4 mmol/L; Blood Urea Nitrogen 11 mg/dL (7-17); C Reactive Protein 6.1 mg/dL (<1.0); Calcium 7.9 mg/dL (8.4-10.2); Carbon Dioxide 38 mmol/L (22-30); Chloride 91 mmol/L (98-107); Glucose 251 mg/dL (74-99); LDH 1471 U/L (313-618); Magnesium 1.5 mg/dL (1.6-2.3); Non-African American GFR(CKD) >90 (>60 ml/min/1.73 sqM); Potassium 3.1 mmol/L (3.5-5.1); Sodium 133 mmol/L (137-145); Total Bilirubin 1.3 mg/dL (0.2-1.3); Total Protein 5.8 g/dL (6.3-8.2)
--- NOTE | 2021-10-04 19:25 | CT ---
EXAMINATION TYPE: CT chest angio for PE DATE OF EXAM: 10/04/2021 COMPARISON: 07/19/2020 HISTORY: elevated d-dimer, SOB, +covid CT DLP: 1047.4 mGycm Automated exposure control for dose reduction was used. CONTRAST: Performed with IV Contrast, patient injected with 80cc mL of Isovue 370. There are 3-D post processed images. There is patchy interstitial and airspace infiltrate in the upper and lower lobes bilaterally. There is some mild atelectasis at the lung bases. Heart is borderline enlarged. There is no mediastinal adenopathy. There are no hilar masses. Thoracic aorta is intact. There is no aneurysm or dissection. The ascending aorta measures 3.2 cm. There is normal contrast opacification of the pulmonary arteries. There are no filling defects. There is degenerative spurring in the mid and lower thoracic spine. There is no compression fracture. Sternum is intact. Upper abdominal soft tissues are intact. IMPRESSION: No evidence of pulmonary embolism. Bilateral extensive pulmonary infiltrates are mostly new compared to old exam. This is consistent with multifocal pneumonia.
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
[2021-10-04] MEDS ORDERED: NALOXONE 0.4 MG/ML 1 ML VIAL IV PRN (19:45)
[2021-10-04] MEDS ORDERED: SODIUM CHLORIDE 0.9% 1,000 ML IV SCH (19:45)
[2021-10-04] MEDS ORDERED: IBUPROFEN 400 MG TAB PO PRN (21:19)
[2021-10-04] MEDS ORDERED: MELATONIN 3 MG TABLET PO PRN (21:19)
[2021-10-04] MEDS ORDERED: ONDANSETRON 4 MG/2 ML VIAL IVP PRN (21:19)
[2021-10-04] MEDS ORDERED: POTASSIUM CHLORIDE ER 20 MEQ TAB.ER PO STA (21:27)
[2021-10-04] MEDS ORDERED: POTASSIUM CHLORIDE 20 MEQ in WATER FOR INJECTION 1 100ML.BAG IVPB ONE (22:00)
[2021-10-04] MEDS ORDERED: ZOLPIDEM 5 MG TAB PO SCH (22:00)
[2021-10-04] MEDS ORDERED: ZOLPIDEM 5 MG TAB PO PRN (22:00)
[2021-10-04] MEDS ORDERED: CYCLOBENZAPRINE 10 MG TAB PO PRN (22:00)
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
[2021-10-04] MEDS: INSULIN DETEMIR (LEVEMIR) 100 UNIT/ML SYR SQ SCH (22:41)
[2021-10-04 22:42] LABS: Glucose,Whole Blood 236 mg/dL (75-99)
[2021-10-04] MEDS: GABAPENTIN 400 MG CAP PO SCH (22:42)
[2021-10-04] MEDS: ATORVASTATIN 40 MG TAB PO SCH (22:42)
[2021-10-04] MEDS: METOPROLOL SUCCINATE (ER) 25 MG TAB.ER.24H PO SCH (22:42)
[2021-10-04] MEDS: SODIUM CHLORIDE 0.9% 1,000 ML IV SCH (22:43)
[2021-10-04] MEDS: FAMOTIDINE 20 MG TAB PO SCH (22:43)
[2021-10-04] MEDS: QUEtiapine 400 MG TAB PO SCH (22:44)
[2021-10-04] MEDS: OXcarbazepine 300 MG TAB PO SCH (22:44)
[2021-10-04] MEDS: LORazepam 1 MG TAB PO PRN (23:20)
[2021-10-05] MEDS: ALBUTEROL HFA INHALER INHALATION PRN ×2 (00:35→11:44)
[2021-10-05] MEDS: MAGNESIUM SULFATE-D5W PMX 1 GM in DEXTROSE/WATER 1 100ML.BAG IVPB SCH ×4 (01:13→06:28)
[2021-10-05] MEDS: BENZONATATE 100 MG CAP PO PRN (01:39)
[2021-10-05] MEDS: SODIUM CHLORIDE 0.9% 1,000 ML IV SCH ×3 (06:29→23:59)
[2021-10-05] MEDS: guaiFENesin 600 MG TABLET.ER PO SCH ×3 (06:29→21:04)
[2021-10-05 07:15] LABS: Glucose,Whole Blood 328 mg/dL (75-99)
[2021-10-05 08:41] LABS: HCT 34.6 % (34.0-46.0); HGB 11.1 gm/dL (11.4-16.0); Hypochromasia Slight; MCH 28.3 pg (25.0-35.0); MCHC 31.9 g/dL (31.0-37.0); MCV 88.7 fL (80.0-100.0); Mean Platelet Volume 7.6; Platelet Count 120 k/uL (150-450); RBC 3.91 m/uL (3.80-5.40); RDW 15.5 % (11.5-15.5); WBC 5.6 k/uL (3.8-10.6)
--- NOTE | 2021-10-05 08:50 | XR ---
EXAMINATION TYPE: XR chest 1V portable DATE OF EXAM: 10/05/2021 COMPARISON: 10/04/2021 HISTORY: 60 years Female. STUDY INDICATION GIVEN: COVID . TECHNIQUE: AP upright chest radiograph IMPRESSION: Worsening interstitial and airspace opacities in the right lung. Slightly decreased airspace and inte rstitial opacities in the left lung. No pneumothorax or large effusion. Stable mild cardiomegaly. Stable osseous structures with postsurgical changes now seen in the left proximal humerus.
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
[2021-10-05 08:56] LABS: ALT 74 U/L (4-34); AST 147 U/L (14-36); African American GFR (CKD) >90 (>60 ml/min/1.73 sqM); Albumin 2.9 g/dL (3.5-5.0); Alkaline Phosphatase 94 U/L (38-126); Anion Gap 6 mmol/L; Blood Urea Nitrogen 11 mg/dL (7-17); Calcium 7.8 mg/dL (8.4-10.2); Carbon Dioxide 37 mmol/L (22-30); Chloride 91 mmol/L (98-107); Globulin 2.9 g/dL; Glucose 327 mg/dL (74-99); LDH 1375 U/L (313-618); Non-African American GFR(CKD) >90 (>60 ml/min/1.73 sqM); Potassium 3.5 mmol/L (3.5-5.1); Sodium 134 mmol/L (137-145); Total Bilirubin 1.2 mg/dL (0.2-1.3); Total Protein 5.8 g/dL (6.3-8.2)
[2021-10-05] MEDS ORDERED: bisacodyL 5 MG TABLET.DR PO PRN (09:00)
[2021-10-05] MEDS: ENOXAPARIN 40 MG/0.4 ML SYRINGE SQ SCH (09:09)
[2021-10-05] MEDS: INSULIN ASPART (NovoLOG) 100 UNIT/ML VIAL SQ SCH ×7 (09:09→21:04)
[2021-10-05] MEDS: GABAPENTIN 400 MG CAP PO SCH ×2 (09:10→21:05)
[2021-10-05] MEDS: FAMOTIDINE 20 MG TAB PO SCH (09:11)
[2021-10-05] MEDS: ZINC SULFATE 220 MG CAP PO SCH (09:11)
[2021-10-05] MEDS: ESCITALOPRAM 20 MG TAB PO SCH (09:11)
[2021-10-05] MEDS: ASCORBIC ACID 500 MG TAB PO SCH (09:11)
[2021-10-05] MEDS: CHOLECALCIFEROL 25 MCG (1000 IU) TABLET PO SCH (09:11)
[2021-10-05] MEDS: dexAMETHasone 2 MG TAB PO SCH (09:11)
[2021-10-05] MEDS: ISOSORBIDE MONONITRATE ER 30 MG TAB.ER.24H PO SCH (09:11)
[2021-10-05] MEDS: buPROPion XL 300 MG TAB.ER.24H PO SCH (09:11)
[2021-10-05] MEDS: OXcarbazepine 300 MG TAB PO SCH ×2 (09:12→21:06)
[2021-10-05] MEDS: FUROSEMIDE 20 MG TAB PO SCH (09:12)
--- NOTE | 2021-10-05 09:19 | P.PN ---
Subjective Progress Note Date: 10/05/21 Principal diagnosis: shortness of breath Patient is a 60-year-old female with a history of diabetes mellitus type 2, hypertension, dyslipidemia, TYRONE on BiPAP, and chronic pain who presented to the emergency department due to weakness and hypoxia. On arrival to the ER her O2 sat was 89% on room air. Patient had reported she ran out of oxygen at home. Remainder of vital signs showed a an elevated systolic blood pressure 183/99. Laboratory analysis showed an elevated d-dimer at 1.07. She underwent a CT of the chest which demonstrated bilateral interstitial infiltrate without evidence of pulmonary embolism. Sodium was 133, potassium 3.1, chloride 91, carbon di oxide 38, glucose 251, magnesium 1.5, AST 171, ALT 79, LDH 1471, and CRP 6.1. Arrangements were made for admission due to COVID-19 pneumonia with hypoxia. She did have coughing fits with decreased O2 overnight and had mucinex and tessalon added. Patient seen and examined at bedside. She reports no change in her symptoms since yesterday. She continues to have a cough medicine shortness of breath. Denies any chest discomfort denies any nausea or vomiting. General: non toxic, I'll distress, appears older than stated age, obese Derm: warm, dry Head: atraumatic, normocephalic, symmetric Eyes: EOMI, no lid lag, anicteric sclera Mouth: no lip lesion, mucus membranes moist Cardiovascular: S1S2 reg, no murmur, positive posterior tibial pulse bilateral, Lungs: Coarse bilateral], no rhonchi, no rales , no accessory muscle use, 3 word conversational dyspnea Abdominal: soft, nontender to palpation, no guarding, no appreciable organomegaly Ext: no gross muscle atrophy, trace edema, no contractures Neuro: CN II-XI grossly intact, no focal neuro deficits Psych: Alert, oriented, appropriate affect Assessment/Plan: COVID-19 pneumonitis Acute hypoxic respiratory failure Acute exacerbation of chronic bronchitis TYRONE - obtain records from [facility] - Report not taking her dexamethasone at home - Dexamethasone D # 2 - pulm recs appreciated - Follow COVID labs - Zinc, Vit C, Vit D - Pepcid - procalcitonin low not consitent with bacterial infection - bronchodilators - has not used her home BiPap in years 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 - SSI - Levemir 10 AM and 10 pm - add fixed dose novolog - check a1c - follow BS - gabapentin Hypertension, controlled - metoprolol, imdur Dyslipidemia - lipitor Morbid obesity - BMI 45.8 - structured outpatient weight loss Falls and Debility - PT/OT - fall precautions Hypokalemia, Hyponatremia, Dehydration, resolved Chronic: Traumatic brain injury Diverticulitis History of dialysis 1 Chronic pain Thrombocytopenia- curretnly at baseline DVT prophylaxis: Lovenox Discussed with: Patient, nursing Anticipated discharge: 3-[address]: SNF A total of 45 minutes was spent on the care of this complex patient more than 50% of the time was spent in counseling and care coordination. Objective - Vital Signs Vital signs: Vital Signs Temp 98.6 F 10/05/21 05:44 Pulse 79 10/05/21 05:44 Resp 20 10/04/21 22:40 BP 128/77 10/05/21 05:44 Pulse Ox 91 L 10/05/21 05:44 Intake & Output 10/04/21 10/05/21 10/05/21 18:59 06:59 18:59 Weight 124.738 kg 124.738 kg Other: # Voids 1 # Bowel Movements 1 - Labs CBC & Chem 7: 10/05/21 08:07 10/05/21 08:07 Labs: Abnormal Lab Results - Last 24 Hours (Table) 10/04/21 10/04/21 10/04/21 Range/Units 17:33 17:33 17:55 Hgb (11.4-16.0) gm/dL Plt Count 110 L (150-450) k/uL D-Dimer 1.07 H (<0.60) mg/L FEU Sodium 133 L (137-145) mmol/L Potassium 3.1 L (3.5-5.1) mmol/L Chloride 91 L (98-107) mmol/L Carbon Dioxide 38 H (22-30) mmol/L Glucose 251 H (74-99) mg/dL POC Glucose (mg/dL) (75-99) mg/dL Calcium 7.9 L (8.4-10.2) mg/dL Magnesium 1.5 L (1.6-2.3) mg/dL Ferritin 297.0 H (10.0-291.0) ng/mL AST 171 H (14-36) U/L ALT 79 H (4-34) U/L Lactate Dehydrogenase 1471 H (313-618) U/L C-Reactive Protein 6.1 H (<1.0) mg/dL Total Protein 5.8 L (6.3-8.2) g/dL Albumin 2.9 L (3.5-5.0) g/dL Procalcitonin (0.02-0.09) ng/mL Coronavirus (PCR) (Not Detectd) 10/04/21 10/04/21 10/04/21 Range/Units 17:55 20:09 22:40 Hgb (11.4-16.0) gm/dL Plt Count (150-450) k/uL D-Dimer (<0.60) mg/L FEU Sodium (137-145) mmol/L Potassium (3.5-5.1) mmol/L Chloride (98-107) mmol/L Carbon Dioxide (22-30) mmol/L Glucose (74-99) mg/dL POC Glucose (mg/dL) 236 H (75-99) mg/dL Calcium (8.4-10.2) mg/dL Magnesium (1.6-2.3) mg/dL Ferritin (10.0-291.0) ng/mL AST (14-36) U/L ALT (4-34) U/L Lactate Dehydrogenase (313-618) U/L C-Reactive Protein (<1.0) mg/dL Total Protein (6.3-8.2) g/dL Albumin (3.5-5.0) g/dL Procalcitonin 0.12 H (0.02-0.09) ng/mL Coronavirus (PCR) Detected A (Not Detectd) 10/05/21 10/05/21 10/05/21 Range/Units 07:13 08:07 08:07 Hgb 11.1 L (11.4-16.0) gm/dL Plt Count 120 L (150-450) k/uL D-Dimer 1.02 H (<0.60) mg/L FEU Sodium (137-145) mmol/L Potassium (3.5-5.1) mmol/L Chloride (98-107) mmol/L Carbon Dioxide (22-30) mmol/L Glucose (74-99) mg/dL POC Glucose (mg/dL) 328 H (75-99) mg/dL Calcium (8.4-10.2) mg/dL Magnesium (1.6-2.3) mg/dL Ferritin (10.0-291.0) ng/mL AST (14-36) U/L ALT (4-34) U/L Lactate Dehydrogenase (313-618) U/L C-Reactive Protein (<1.0) mg/dL Total Protein (6.3-8.2) g/dL Albumin (3.5-5.0) g/dL Procalcitonin (0.02-0.09) ng/mL Coronavirus (PCR) (Not Detectd) 10/05/21 Range/Units 08:07 Hgb (11.4-16.0) gm/dL Plt Count (150-450) k/uL D-Dimer (<0.60) mg/L FEU Sodium 134 L (137-145) mmol/L Potassium (3.5-5.1) mmol/L Chloride 91 L (98-107) mmol/L Carbon Dioxide 37 H (22-30) mmol/L Glucose 327 H (74-99) mg/dL POC Glucose (mg/dL) (75-99) mg/dL Calcium 7.8 L (8.4-10.2) mg/dL Magnesium (1.6-2.3) mg/dL Ferritin (10.0-291.0) ng/mL AST 147 H (14-36) U/L ALT 74 H (4-34) U/L Lactate Dehydrogenase 1375 H (313-618) U/L C-Reactive Protein (<1.0) mg/dL Total Protein 5.8 L (6.3-8.2) g/dL Albumin 2.9 L (3.5-5.0) g/dL Procalcitonin (0.02-0.09) ng/mL Coronavirus (PCR) (Not Detectd)
[2021-10-05] MEDS: SYMBICORT 160-4.5 MCG INHALER INHALATION SCH ×2 (09:50→19:27)
[2021-10-05] MEDS: INSULIN DETEMIR (LEVEMIR) 100 UNIT/ML SYR SQ SCH ×2 (10:00→21:03)
[2021-10-05 11:50] LABS: Glucose,Whole Blood 407 mg/dL (75-99)
[2021-10-05 16:30] LABS: Glucose,Whole Blood 449 mg/dL (75-99)
[2021-10-05 20:01] LABS: Glucose,Whole Blood 434 mg/dL (75-99)
[2021-10-05] MEDS: QUEtiapine 400 MG TAB PO SCH (21:05)
[2021-10-05] MEDS: METOPROLOL SUCCINATE (ER) 25 MG TAB.ER.24H PO SCH (21:05)
[2021-10-05] MEDS: ATORVASTATIN 40 MG TAB PO SCH (21:05)
[2021-10-05] MEDS: LORazepam 1 MG TAB PO PRN (21:24)
[2021-10-06] MEDS: SODIUM CHLORIDE 0.9% 1,000 ML IV SCH (00:52)
[2021-10-06 07:17] LABS: HCT 33.5 % (34.0-46.0); HGB 10.7 gm/dL (11.4-16.0); Hypochromasia Slight; MCH 28.6 pg (25.0-35.0); MCHC 31.9 g/dL (31.0-37.0); MCV 89.7 fL (80.0-100.0); Mean Platelet Volume 8.5; Platelet Count 122 k/uL (150-450); RBC 3.74 m/uL (3.80-5.40); RDW 15.7 % (11.5-15.5); WBC 4.1 k/uL (3.8-10.6)
[2021-10-06 07:19] LABS: Glucose,Whole Blood 319 mg/dL (75-99)
[2021-10-06 07:29] LABS: Sodium 132 mmol/L (137-145)
[2021-10-06 07:34] LABS: ALT 70 U/L (4-34); AST 95 U/L (14-36); African American GFR (CKD) >90 (>60 ml/min/1.73 sqM); Albumin 2.9 g/dL (3.5-5.0); Alkaline Phosphatase 82 U/L (38-126); Anion Gap 4 mmol/L; Blood Urea Nitrogen 11 mg/dL (7-17); C Reactive Protein 4.7 mg/dL (<1.0); Calcium 7.7 mg/dL (8.4-10.2); Carbon Dioxide 36 mmol/L (22-30); Chloride 92 mmol/L (98-107); Glucose 277 mg/dL (74-99); LDH 1330 U/L (313-618); Non-African American GFR(CKD) >90 (>60 ml/min/1.73 sqM); Potassium 3.7 mmol/L (3.5-5.1); Total Protein 5.9 g/dL (6.3-8.2)
[2021-10-06] MEDS: SYMBICORT 160-4.5 MCG INHALER INHALATION SCH ×2 (07:34→20:25)
[2021-10-06] MEDS: ALBUTEROL HFA INHALER INHALATION PRN ×3 (07:34→20:24)
[2021-10-06] MEDS: INSULIN ASPART (NovoLOG) 100 UNIT/ML VIAL SQ SCH ×8 (07:44→21:17)
[2021-10-06] MEDS: dexAMETHasone 2 MG TAB PO SCH (07:44)
[2021-10-06] MEDS: ZINC SULFATE 220 MG CAP PO SCH (07:44)
[2021-10-06] MEDS: INSULIN DETEMIR (LEVEMIR) 100 UNIT/ML SYR SQ SCH (07:44)
[2021-10-06] MEDS: ENOXAPARIN 40 MG/0.4 ML SYRINGE SQ SCH (07:44)
[2021-10-06] MEDS: buPROPion XL 300 MG TAB.ER.24H PO SCH (07:45)
[2021-10-06] MEDS: FUROSEMIDE 20 MG TAB PO SCH (07:45)
[2021-10-06] MEDS: CHOLECALCIFEROL 25 MCG (1000 IU) TABLET PO SCH (07:45)
[2021-10-06] MEDS: ASCORBIC ACID 500 MG TAB PO SCH (07:45)
[2021-10-06] MEDS: GABAPENTIN 400 MG CAP PO SCH ×2 (07:45→21:18)
[2021-10-06] MEDS: guaiFENesin 600 MG TABLET.ER PO SCH ×2 (07:45→20:54)
[2021-10-06] MEDS: ESCITALOPRAM 20 MG TAB PO SCH (07:45)
[2021-10-06] MEDS: FAMOTIDINE 20 MG TAB PO SCH (07:45)
[2021-10-06] MEDS: ISOSORBIDE MONONITRATE ER 30 MG TAB.ER.24H PO SCH (07:45)
[2021-10-06] MEDS: BENZONATATE 100 MG CAP PO PRN ×3 (07:45→20:54)
[2021-10-06] MEDS: OXcarbazepine 300 MG TAB PO SCH ×2 (07:46→21:18)
[2021-10-06 11:30] LABS: Glucose,Whole Blood 381 mg/dL (75-99)
--- NOTE | 2021-10-06 15:47 | P.PN ---
Subjective Progress Note Date: 10/06/21 (delayed charting seen at 1030) Principal diagnosis: shortness of breath Patient is a 60-year-old female with a history of diabetes mellitus type 2, hypertension, dyslipidemia, TYRONE on BiPAP, and chronic pain who presented to the emergency department due to weakness and hypoxia. On arrival to the ER her O2 sat was 89% on room air. Patient had reported she ran out of oxygen at home. Remainder of vital signs showed a an elevated systolic blood pressure 183/99. Laboratory analysis showed an elevated d-dimer at 1.07. She underwent a CTA of the chest which demonstrated bilateral interstitial infiltrate without evidence of pulmonary embolism. Sodium was 133, potassium 3.1, chloride 91, carbon dioxide 38, glucose 251, magnesium 1.5, AST 171, ALT 79, LDH 1471, and CRP 6.1. Arrangements were made for admission due to COVID-19 pneumonia with hypoxia. She did have coughing fits with decreased O2 overnight and had mucinex and tessalon added. She continued to do well and her continuing to her prior 5 L nasal cannula. Patient seen and examined at bedside. She thinks that her breathing is somewhat better though she continues to have a severe cough. She complains of some pain in the left side of her abdomen with coughing. She continues to have some nausea, no vomiting. Still with low appetite and feeling weak. General: non toxic, I'll distress, appears older than stated age, obese Derm: warm, dry Head: atraumatic, normocephalic, symmetric Eyes: EOMI, no lid lag, anicteric sclera Mouth: no lip lesion, mucus membranes moist Cardiovascular: S1S2 reg, no murmur, positive posterior tibial pulse bilateral, Lungs: Coarse bs bilateral, no rhonchi, no rales , no accessory muscle use, 3 word conversational dyspnea Abdominal: soft, nontender to palpation, no guarding, no appreciable organomegaly Ext: no gross muscle atrophy, 2+edema, no contractures Neuro: CN II-XI grossly intact, no focal neuro deficits Psych: Alert, oriented, appropriate affect Assessment/Plan: COVID-19 pneumonitis Acute hypoxic respiratory failure Acute exacerbation of chronic bronchitis TYRONE - obtain records from 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 Anticipated discharge place: [facility] A total of 45 minutes was spent on the care of this complex patient more than 50% of the time was spent in counseling and care coordination. Objective - Vital Signs Vital signs: Vital Signs Temp 96.6 F L 10/06/21 14:00 Pulse 72 10/06/21 14:00 Resp 16 10/06/21 14:00 BP 171/83 10/06/21 14:00 Pulse Ox 94 L 10/06/21 14:00 Intake & Output 10/05/21 10/06/21 10/06/21 18:59 06:59 18:59 Other: Voiding Method Bedside Commode Bedside Commode # Voids 1 # Bowel Movements 2 - Labs CBC & Chem 7: 10/06/21 06:20 10/06/21 06:20 Labs: Abnormal Lab Results - Last 24 Hours (Table) 10/05/21 10/05/21 10/06/21 Range/Units 16:29 20:00 06:20 RBC 3.74 L (3.80-5.40) m/uL Hgb 10.7 L (11.4-16.0) gm/dL Hct 33.5 L (34.0-46.0) % RDW 15.7 H (11.5-15.5) % Plt Count 122 L (150-450) k/uL D-Dimer (<0.60) mg/L FEU Sodium (137-145) mmol/L Chloride (98-107) mmol/L Carbon Dioxide (22-30) mmol/L Glucose (74-99) mg/dL POC Glucose (mg/dL) 449 H 434 H (75-99) mg/dL Calcium (8.4-10.2) mg/dL AST (14-36) U/L ALT (4-34) U/L Lactate Dehydrogenase (313-618) U/L C-Reactive Protein (<1.0) mg/dL Total Protein (6.3-8.2) g/dL Albumin (3.5-5.0) g/dL 10/06/21 10/06/21 10/06/21 Range/Units 06:20 06:20 07:17 RBC (3.80-5.40) m/uL Hgb (11.4-16.0) gm/dL Hct (34.0-46.0) % RDW (11.5-15.5) % Plt Count (150-450) k/uL D-Dimer 0.84 H (<0.60) mg/L FEU Sodium 132 L (137-145) mmol/L Chloride 92 L (98-107) mmol/L Carbon Dioxide 36 H (22-30) mmol/L Glucose 277 H (74-99) mg/dL POC Glucose (mg/dL) 319 H (75-99) mg/dL Calcium 7.7 L (8.4-10.2) mg/dL AST 95 H (14-36) U/L ALT 70 H (4-34) U/L Lactate Dehydrogenase 1330 H (313-618) U/L C-Reactive Protein 4.7 H (<1.0) mg/dL Total Protein 5.9 L (6.3-8.2) g/dL Albumin 2.9 L (3.5-5.0) g/dL 10/06/21 Range/Units 11:28 RBC (3.80-5.40) m/uL Hgb (11.4-16.0) gm/dL Hct (34.0-46.0) % RDW (11.5-15.5) % Plt Count (150-450) k/uL D-Dimer (<0.60) mg/L FEU Sodium (137-145) mmol/L Chloride (98-107) mmol/L Carbon Dioxide (22-30) mmol/L Glucose (74-99) mg/dL POC Glucose (mg/dL) 381 H (75-99) mg/dL Calcium (8.4-10.2) mg/dL AST (14-36) U/L ALT (4-34) U/L Lactate Dehydrogenase (313-618) U/L C-Reactive Protein (<1.0) mg/dL Total Protein (6.3-8.2) g/dL Albumin (3.5-5.0) g/dL
[2021-10-06 16:44] LABS: Glucose,Whole Blood 357 mg/dL (75-99)
[2021-10-06] MEDS: LORazepam 1 MG TAB PO PRN (20:54)
[2021-10-06 21:00] LABS: Glucose,Whole Blood 317 mg/dL (75-99)
[2021-10-06] MEDS ORDERED: INSULIN DETEMIR (LEVEMIR) 100 UNIT/ML SYR SQ SCH (21:00)
[2021-10-06] MEDS: METOPROLOL SUCCINATE (ER) 25 MG TAB.ER.24H PO SCH (21:18)
[2021-10-06] MEDS: QUEtiapine 400 MG TAB PO SCH (21:18)
[2021-10-06] MEDS: ATORVASTATIN 40 MG TAB PO SCH (21:23)
[2021-10-07] MEDS ORDERED: INSULIN DETEMIR (LEVEMIR) 100 UNIT/ML SYR SQ SCH ×2 (07:00→21:00)
[2021-10-07 07:19] LABS: Glucose,Whole Blood 215 mg/dL (75-99)
[2021-10-07] MEDS: ENOXAPARIN 40 MG/0.4 ML SYRINGE SQ SCH (07:30)
[2021-10-07] MEDS: INSULIN ASPART (NovoLOG) 100 UNIT/ML VIAL SQ SCH ×8 (07:31→20:39)
[2021-10-07] MEDS: GABAPENTIN 400 MG CAP PO SCH ×2 (07:31→20:40)
[2021-10-07] MEDS: FAMOTIDINE 20 MG TAB PO SCH (07:32)
[2021-10-07] MEDS: dexAMETHasone 2 MG TAB PO SCH (07:32)
[2021-10-07] MEDS: ISOSORBIDE MONONITRATE ER 30 MG TAB.ER.24H PO SCH (07:32)
[2021-10-07] MEDS: ESCITALOPRAM 20 MG TAB PO SCH (07:32)
[2021-10-07] MEDS: CHOLECALCIFEROL 25 MCG (1000 IU) TABLET PO SCH (07:32)
[2021-10-07] MEDS: ASCORBIC ACID 500 MG TAB PO SCH (07:32)
[2021-10-07] MEDS: ZINC SULFATE 220 MG CAP PO SCH (07:32)
[2021-10-07] MEDS: buPROPion XL 300 MG TAB.ER.24H PO SCH (07:32)
[2021-10-07] MEDS: FUROSEMIDE 20 MG TAB PO SCH (07:32)
[2021-10-07] MEDS: OXcarbazepine 300 MG TAB PO SCH ×2 (07:33→20:41)
[2021-10-07] MEDS: guaiFENesin 600 MG TABLET.ER PO SCH ×2 (07:33→20:40)
[2021-10-07] MEDS: BENZONATATE 100 MG CAP PO PRN ×2 (07:33→21:10)
[2021-10-07] MEDS: ALBUTEROL HFA INHALER INHALATION PRN ×2 (09:53→20:51)
[2021-10-07] MEDS: SYMBICORT 160-4.5 MCG INHALER INHALATION SCH ×2 (09:53→20:51)
[2021-10-07 10:40] LABS: Anisocytosis Slight; HCT 35.6 % (34.0-46.0); HGB 11.3 gm/dL (11.4-16.0); Hypochromasia Slight; MCH 28.7 pg (25.0-35.0); MCHC 31.6 g/dL (31.0-37.0); MCV 90.9 fL (80.0-100.0); Mean Platelet Volume 9.5; Platelet Count 144 k/uL (150-450); RBC 3.92 m/uL (3.80-5.40); RDW 16.2 % (11.5-15.5); WBC 7.1 k/uL (3.8-10.6)
[2021-10-07 11:05] LABS: ALT 67 U/L (4-34); AST 81 U/L (14-36); African American GFR (CKD) >90 (>60 ml/min/1.73 sqM); Alkaline Phosphatase 94 U/L (38-126); Anion Gap 6 mmol/L; Blood Urea Nitrogen 10 mg/dL (7-17); Calcium 7.9 mg/dL (8.4-10.2); Carbon Dioxide 36 mmol/L (22-30); Chloride 90 mmol/L (98-107); Globulin 3.1 g/dL; Glucose 381 mg/dL (74-99); LDH 1164 U/L (313-618); Magnesium 1.5 mg/dL (1.6-2.3); Non-African American GFR(CKD) >90 (>60 ml/min/1.73 sqM); Phosphorus 2.4 mg/dL (2.5-4.5); Potassium 3.2 mmol/L (3.5-5.1); Sodium 132 mmol/L (137-145); Total Bilirubin 1.2 mg/dL (0.2-1.3); Total Protein 6.1 g/dL (6.3-8.2)
[2021-10-07] MEDS ORDERED: POTASSIUM CHLORIDE ER 20 MEQ TAB.ER PO STA (11:35)
[2021-10-07 11:40] LABS: Glucose,Whole Blood 403 mg/dL (75-99)
--- NOTE | 2021-10-07 11:48 | P.PN ---
Subjective Progress Note Date: 10/06/21 Principal diagnosis: COVID-19 pneumonia Acute on chronic hypoxic respiratory failure Central sleep apnea Diabetes mellitus Morbid obesity Dyslipidemia 10/06/2021, patient continued do well respiratory difficulty improve still intermittent cough is present, appetite remains poor, quality of sleep however improved now Patient is a 60-year-old female well-known to me patient has a history of central sleep apnea obesity hypoventilation syndrome, history of traumatic brain injury recently found to have a cold with was hospitalized at [facility] she has been on a 10 L nasal cannula however subsequently titrated down to 5 L at that point she was discharged home to finish outpatient oral antibiotics and steroids, patient few days after discharge progressively became weaker tired fatigue and increasing shortness of breath came back to [facility] where her saturation found to be 89% on room air, really she is on 8 L/m nasal cannula, patient is on anti-inflammatory vitamins and minerals, chest x-ray performed revealed bilateral patchy infiltrate, computed tomography scan of the chest manifest similar thing and negative for pulmonary embolism Objective - Vital Signs Vital signs: Vital Signs Temp 96.6 F L 10/06/21 14:00 Pulse 72 10/06/21 14:00 Resp 16 10/06/21 14:00 BP 171/83 10/06/21 14:00 Pulse Ox 94 L 10/06/21 14:00 Intake & Output 10/05/21 10/06/21 10/06/21 18:59 06:59 18:59 Other: Voiding Method Bedside Commode Bedside Commode # Voids 1 # Bowel Movements 2 - Exam - Constitutional General appearance: morbidly obese, no acute distress - EENT Eyes: PERRLA Ears: bilateral: normal - Neck Carotids: bilateral: upstroke normal Thyroid: bilateral: normal size - Respiratory Respiratory: bilateral: diminished - Cardiovascular Rhythm: regular Heart sounds: normal: S1, S2 - Gastrointestinal General gastrointestinal: soft - Integumentary Integumentary: normal turgor - Neurologic Neurologic: CNII-XII intact - Musculoskeletal Musculoskeletal: gait normal, generalized weakness, strength equal bilaterally - Labs CBC & Chem 7: 10/07/21 10:26 10/07/21 10:26 Labs: Abnormal Lab Results - Last 24 Hours (Table) 10/05/21 10/06/21 10/06/21 Range/Units 20:00 06:20 06:20 RBC 3.74 L (3.80-5.40) m/uL Hgb 10.7 L (11.4-16.0) gm/dL Hct 33.5 L (34.0-46.0) % RDW 15.7 H (11.5-15.5) % Plt Count 122 L (150-450) k/uL D-Dimer 0.84 H (<0.60) mg/L FEU Sodium (137-145) mmol/L Chloride (98-107) mmol/L Carbon Dioxide (22-30) mmol/L Glucose (74-99) mg/dL POC Glucose (mg/dL) 434 H (75-99) mg/dL Calcium (8.4-10.2) mg/dL AST (14-36) U/L ALT (4-34) U/L Lactate Dehydrogenase (313-618) U/L C-Reactive Protein (<1.0) mg/dL Total Protein (6.3-8.2) g/dL Albumin (3.5-5.0) g/dL 10/06/21 10/06/21 10/06/21 Range/Units 06:20 07:17 11:28 RBC (3.80-5.40) m/uL Hgb (11.4-16.0) gm/dL Hct (34.0-46.0) % RDW (11.5-15.5) % Plt Count (150-450) k/uL D-Dimer (<0.60) mg/L FEU Sodium 132 L (137-145) mmol/L Chloride 92 L (98-107) mmol/L Carbon Dioxide 36 H (22-30) mmol/L Glucose 277 H (74-99) mg/dL POC Glucose (mg/dL) 319 H 381 H (75-99) mg/dL Calcium 7.7 L (8.4-10.2) mg/dL AST 95 H (14-36) U/L ALT 70 H (4-34) U/L Lactate Dehydrogenase 1330 H (313-618) U/L C-Reactive Protein 4.7 H (<1.0) mg/dL Total Protein 5.9 L (6.3-8.2) g/dL Albumin 2.9 L (3.5-5.0) g/dL Assessment and Plan Assessment: COVID-19 pneumonia Acute on chronic hypoxic respiratory failure Central sleep apnea Diabetes mellitus Morbid obesity Dyslipidemia Plan: Decadron Bronchodilators Taper oxygen down as tolerated Continue home medications Further plan of care as per clinical response of the patient Time with Patient: Greater than 30
[2021-10-07] MEDS: MAGNESIUM SULFATE-D5W PMX 1 GM in DEXTROSE/WATER 1 100ML.BAG IVPB SCH ×4 (11:50→16:11)
--- NOTE | 2021-10-07 11:50 | P.PN ---
Subjective Progress Note Date: 10/07/21 Principal diagnosis: COVID-19 pneumonia Acute on chronic hypoxic respiratory failure Central sleep apnea Diabetes mellitus Morbid obesity Dyslipidemia 10/07/2021, shouldn't seen evaluated examined, remains afebrile hemodynamics stable, on 2 L oxygen saturation 95%, labs reviewed white cell count 7000 hemoglobin 1135, d-dimer is 1.17 sodium 30 patient 3.2, BUN/creatinine 10\.66\ 10/06/2021, patient continued do well respiratory difficulty improve still intermittent cough is present, appetite remains poor, quality of sleep however improved now Patient is a 60-year-old female well-known to me patient has a history of central sleep apnea obesity hypoventilation syndrome, history of traumatic brain injury recently found to have a cold with was hospitalized at [facility] she has been on a 10 L nasal cannula however subsequently titrated down to 5 L at that point she was discharged home to finish outpatient oral antibiotics and steroids, patient few days after discharge progressively became weaker tired fatigue and increasing shortness of breath came back to [facility] where her saturation found to be 89% on room air, really she is on 8 L/m nasal cannula, patient is on anti-inflammatory vitamins and minerals, chest x-ray performed revealed bilateral patchy infiltrate, computed tomography scan of the chest manifest similar thing and negative for pulmonary embolism Objective - Vital Signs Vital signs: Vital Signs Temp 98.1 F 10/07/21 10:03 Pulse 73 10/07/21 10:03 Resp 18 10/07/21 10:03 BP 170/82 10/07/21 10:03 Pulse Ox 95 10/07/21 10:03 Intake & Output 10/06/21 10/07/21 10/07/21 18:59 06:59 18:59 Intake Total 200 Balance 200 Intake: Intake, IV Titration 200 Amount Sodium Chloride 0.9% 1, 200 000 ml @ 130 mls/hr IV . Q7H42M [facility] Rx#:[id number] Other: Voiding Method Bedside Commode Toilet Toilet - Exam - Constitutional General appearance: morbidly obese, no acute distress - EENT Eyes: PERRLA Ears: bilateral: normal - Neck Carotids: bilateral: upstroke normal Thyroid: bilateral: normal size - Respiratory Respiratory: bilateral: diminished - Cardiovascular Rhythm: regular Heart sounds: normal: S1, S2 - Gastrointestinal General gastrointestinal: soft - Integumentary Integumentary: normal turgor - Neurologic Neurologic: CNII-XII intact - Musculoskeletal Musculoskeletal: gait normal, generalized weakness, strength equal bilaterally - Labs CBC & Chem 7: 10/07/21 10:26 12 10:26 Labs: Abnormal Lab Results - Last 24 Hours (Table) 10/06/21 10/06/21 10/07/21 Range/Units 16:42 20:58 07:18 Hgb (11.4-16.0) gm/dL RDW (11.5-15.5) % Plt Count (150-450) k/uL D-Dimer (<0.60) mg/L FEU Sodium (137-145) mmol/L Potassium (3.5-5.1) mmol/L Chloride (98-107) mmol/L Carbon Dioxide (22-30) mmol/L Glucose (74-99) mg/dL POC Glucose (mg/dL) 357 H 317 H 215 H (75-99) mg/dL Calcium (8.4-10.2) mg/dL Phosphorus (2.5-4.5) mg/dL Magnesium (1.6-2.3) mg/dL AST (14-36) U/L ALT (4-34) U/L Lactate Dehydrogenase (313-618) U/L Total Protein (6.3-8.2) g/dL Albumin (3.5-5.0) g/dL 10/07/21 10/07/21 10/07/21 Range/Units 10:26 10:26 10:26 Hgb 11.3 L (11.4-16.0) gm/dL RDW 16.2 H (11.5-15.5) % Plt Count 144 L (150-450) k/uL D-Dimer 1.17 H (<0.60) mg/L FEU Sodium 132 L (137-145) mmol/L Potassium 3.2 L (3.5-5.1) mmol/L Chloride 90 L (98-107) mmol/L Carbon Dioxide 36 H (22-30) mmol/L Glucose 381 H (74-99) mg/dL POC Glucose (mg/dL) (75-99) mg/dL Calcium 7.9 L (8.4-10.2) mg/dL Phosphorus 2.4 L (2.5-4.5) mg/dL Magnesium 1.5 L (1.6-2.3) mg/dL AST 81 H (14-36) U/L ALT 67 H (4-34) U/L Lactate Dehydrogenase 1164 H (313-618) U/L Total Protein 6.1 L (6.3-8.2) g/dL Albumin 3.0 L (3.5-5.0) g/dL 10/07/21 Range/Units 11:39 Hgb (11.4-16.0) gm/dL RDW (11.5-15.5) % Plt Count (150-450) k/uL D-Dimer (<0.60) mg/L FEU Sodium (137-145) mmol/L Potassium (3.5-5.1) mmol/L Chloride (98-107) mmol/L Carbon Dioxide (22-30) mmol/L Glucose (74-99) mg/dL POC Glucose (mg/dL) 403 H (75-99) mg/dL Calcium (8.4-10.2) mg/dL Phosphorus (2.5-4.5) mg/dL Magnesium (1.6-2.3) mg/dL AST (14-36) U/L ALT (4-34) U/L Lactate Dehydrogenase (313-618) U/L Total Protein (6.3-8.2) g/dL Albumin (3.5-5.0) g/dL Assessment and Plan Assessment: COVID-19 pneumonia Acute on chronic hypoxic respiratory failure Central sleep apnea Diabetes mellitus Morbid obesity Dyslipidemia Plan: Decadron Bronchodilators Taper oxygen down as tolerated Continue home medications Further plan of care as per clinical response of the patient Time with Patient: Greater than 30
--- NOTE | 2021-10-07 13:40 | P.PN ---
Subjective Progress Note Date: 10/07/21 (delayed charting seen at 11am ) Principal diagnosis: shortness of breath Patient is a 60-year-old female with a history of diabetes mellitus type 2, hypertension, dyslipidemia, TYRONE on BiPAP, and chronic pain who presented to the emergency department due to weakness and hypoxia. On arrival to the ER her O2 sat was 89% on room air. Patient had reported she ran out of oxygen at home. Remainder of vital signs showed a an elevated systolic blood pressure 183/99. Laboratory analysis showed an elevated d-dimer at 1.07. She underwent a CTA of the chest which demonstrated bilateral interstitial infiltrate without evidence of pulmonary embolism. Sodium was 133, potassium 3.1, chloride 91, carbon dioxide 38, glucose 251, magnesium 1.5, AST 171, ALT 79, LDH 1471, and CRP 6.1. Arrangements were made for admission due to COVID-19 pneumonia with hypoxia. She did have coughing fits with decreased O2 overnight and had mucinex and tessalon added. She continued to do well and her continuing to her prior 5 L nasal cannula, which was eventually weaned to 2L Nc. Patient seen and examined at bedside. She complains of sever cough with pain in her chest with coughing. She feels like she is choking. She now wants to go home with home health.No nausea. no vomiting. General: non toxic, no distress, appears older than stated age, obese Derm: warm, dry Head: atraumatic, normocephalic, symmetric Eyes: EOMI, no lid lag, anicteric sclera Mouth: no lip lesion, mucus membranes moist Cardiovascular: S1S2 reg, no murmur, positive posterior tibial pulse bilateral, Lungs: Coarse bs bilateral, no rhonchi, no rales , no accessory muscle use, 3 word conversational dyspnea Abdominal: soft, nontender to palpation, no guarding, no appreciable organomegally Ext: no gross muscle atrophy, 2+edema, no contractures Neuro: CN II-XI grossly intact, no focal neuro deficits Psych: Alert, oriented, appropriate affect Assessment/Plan: COVID-19 pneumonitis Acute hypoxic respiratory failure- will need O2 on discharge. 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 Anticipated discharge place: Home with home health A total of 35 minutes was spent on the care of this complex patient more than 50% of the time was spent in counseling and care coordination. Objective - Vital Signs Vital signs: Vital Signs Temp 98.1 F 10/07/21 10:03 Pulse 73 10/07/21 10:03 Resp 18 10/07/21 10:03 BP 170/82 10/07/21 10:03 Pulse Ox 95 10/07/21 10:03 Intake & Output 10/06/21 10/07/21 10/07/21 18:59 06:59 18:59 Intake Total 200 Balance 200 Intake: Intake, IV Titration 200 Amount Sodium Chloride 0.9% 1, 200 000 ml @ 130 mls/hr IV . Q7H42M [facility] Rx#:[id number] Other: Voiding Method Bedside Commode Toilet Toilet - Labs CBC & Chem 7: 10/07/21 10:26 10/07/21 10:26 Labs: Abnormal Lab Results - Last 24 Hours (Table) 10/06/21 10/06/21 10/07/21 Range/Units 16:42 20:58 07:18 Hgb (11.4-16.0) gm/dL RDW (11.5-15.5) % Plt Count (150-450) k/uL D-Dimer (<0.60) mg/L FEU Sodium (137-145) mmol/L Potassium (3.5-5.1) mmol/L Chloride (98-107) mmol/L Carbon Dioxide (22-30) mmol/L Glucose (74-99) mg/dL POC Glucose (mg/dL) 357 H 317 H 215 H (75-99) mg/dL Calcium (8.4-10.2) mg/dL Phosphorus (2.5-4.5) mg/dL Magnesium (1.6-2.3) mg/dL AST (14-36) U/L ALT (4-34) U/L Lactate Dehydrogenase (313-618) U/L Total Protein (6.3-8.2) g/dL Albumin (3.5-5.0) g/dL 10/07/21 10/07/21 10/07/21 Range/Units 10:26 10:26 10:26 Hgb 11.3 L (11.4-16.0) gm/dL RDW 16.2 H (11.5-15.5) % Plt Count 144 L (150-450) k/uL D-Dimer 1.17 H (<0.60) mg/L FEU Sodium 132 L (137-145) mmol/L Potassium 3.2 L (3.5-5.1) mmol/L Chloride 90 L (98-107) mmol/L Carbon Dioxide 36 H (22-30) mmol/L Glucose 381 H (74-99) mg/dL POC Glucose (mg/dL) (75-99) mg/dL Calcium 7.9 L (8.4-10.2) mg/dL Phosphorus 2.4 L (2.5-4.5) mg/dL Magnesium 1.5 L (1.6-2.3) mg/dL AST 81 H (14-36) U/L ALT 67 H (4-34) U/L Lactate Dehydrogenase 1164 H (313-618) U/L Total Protein 6.1 L (6.3-8.2) g/dL Albumin 3.0 L (3.5-5.0) g/dL 10/07/21 Range/Units 11:39 Hgb (11.4-16.0) gm/dL RDW (11.5-15.5) % Plt Count (150-450) k/uL D-Dimer (<0.60) mg/L FEU Sodium (137-145) mmol/L Potassium (3.5-5.1) mmol/L Chloride (98-107) mmol/L Carbon Dioxide (22-30) mmol/L Glucose (74-99) mg/dL POC Glucose (mg/dL) 403 H (75-99) mg/dL Calcium (8.4-10.2) mg/dL Phosphorus (2.5-4.5) mg/dL Magnesium (1.6-2.3) mg/dL AST (14-36) U/L ALT (4-34) U/L Lactate Dehydrogenase (313-618) U/L Total Protein (6.3-8.2) g/dL Albumin (3.5-5.0) g/dL
[2021-10-07] MEDS: ACETAMINOPHEN TAB 325 MG TAB PO PRN (14:31)
[2021-10-07 16:48] LABS: Glucose,Whole Blood 362 mg/dL (75-99)
[2021-10-07] MEDS: POTAS-SOD-PHOS 278-164-250 MG 1 EACH PACKET PO SCH ×2 (17:14→21:10)
[2021-10-07 20:15] LABS: Glucose,Whole Blood 309 mg/dL (75-99)
[2021-10-07] MEDS: METOPROLOL SUCCINATE (ER) 25 MG TAB.ER.24H PO SCH (20:40)
[2021-10-07] MEDS: LORazepam 1 MG TAB PO PRN (20:40)
[2021-10-07] MEDS: ATORVASTATIN 40 MG TAB PO SCH (20:40)
[2021-10-07] MEDS: QUEtiapine 400 MG TAB PO SCH (20:41)
[2021-10-08 06:57] LABS: Glucose,Whole Blood 184 mg/dL (75-99)
[2021-10-08] MEDS ORDERED: INSULIN DETEMIR (LEVEMIR) 100 UNIT/ML SYR SQ SCH (07:00)
[2021-10-08] MEDS: ALBUTEROL HFA INHALER INHALATION PRN (07:33)
[2021-10-08] MEDS: SYMBICORT 160-4.5 MCG INHALER INHALATION SCH (07:34)
[2021-10-08 08:05] LABS: Anisocytosis Slight; HCT 35.2 % (34.0-46.0); HGB 11.2 gm/dL (11.4-16.0); Hypochromasia Slight; MCH 28.1 pg (25.0-35.0); MCHC 31.7 g/dL (31.0-37.0); MCV 88.5 fL (80.0-100.0); Platelet Count 132 k/uL (150-450); RBC 3.98 m/uL (3.80-5.40); RDW 16.2 % (11.5-15.5); WBC 7.1 k/uL (3.8-10.6)
[2021-10-08 08:33] LABS: Albumin 3.3 g/dL (3.5-5.0); Chloride 88 mmol/L (98-107); Globulin 3.2 g/dL; Glucose 178 mg/dL (74-99); Total Protein 6.5 g/dL (6.3-8.2)
[2021-10-08 08:34] LABS: ALT 68 U/L (4-34); AST 67 U/L (14-36); African American GFR (CKD) >90 (>60 ml/min/1.73 sqM); Alkaline Phosphatase 95 U/L (38-126); Anion Gap 8 mmol/L; Blood Urea Nitrogen 10 mg/dL (7-17); Calcium 8.1 mg/dL (8.4-10.2); Carbon Dioxide 36 mmol/L (22-30); LDH 1174 U/L (313-618); Magnesium 1.9 mg/dL (1.6-2.3); Non-African American GFR(CKD) >90 (>60 ml/min/1.73 sqM); Phosphorus 3.2 mg/dL (2.5-4.5); Potassium 3.5 mmol/L (3.5-5.1); Sodium 132 mmol/L (137-145); Total Bilirubin 0.9 mg/dL (0.2-1.3)
[2021-10-08] MEDS: ENOXAPARIN 40 MG/0.4 ML SYRINGE SQ SCH (08:47)
[2021-10-08] MEDS: INSULIN ASPART (NovoLOG) 100 UNIT/ML VIAL SQ SCH ×6 (08:47→17:04)
[2021-10-08] MEDS: ACETAMINOPHEN TAB 325 MG TAB PO PRN (08:47)
[2021-10-08] MEDS: OXcarbazepine 300 MG TAB PO SCH (08:48)
[2021-10-08] MEDS: CHOLECALCIFEROL 25 MCG (1000 IU) TABLET PO SCH (08:48)
[2021-10-08] MEDS: ASCORBIC ACID 500 MG TAB PO SCH (08:48)
[2021-10-08] MEDS: FAMOTIDINE 20 MG TAB PO SCH (08:48)
[2021-10-08] MEDS: ISOSORBIDE MONONITRATE ER 30 MG TAB.ER.24H PO SCH (08:49)
[2021-10-08] MEDS: buPROPion XL 300 MG TAB.ER.24H PO SCH (08:49)
[2021-10-08] MEDS: ZINC SULFATE 220 MG CAP PO SCH (08:49)
[2021-10-08] MEDS: FUROSEMIDE 20 MG TAB PO SCH (08:49)
[2021-10-08] MEDS: guaiFENesin 600 MG TABLET.ER PO SCH (08:49)
[2021-10-08] MEDS: dexAMETHasone 2 MG TAB PO SCH (08:49)
[2021-10-08] MEDS: ESCITALOPRAM 20 MG TAB PO SCH (08:49)
[2021-10-08] MEDS: GABAPENTIN 400 MG CAP PO SCH (08:49)
--- NOTE | 2021-10-08 08:55 | P.PN ---
Subjective Progress Note Date: 10/08/21 Principal diagnosis: COVID-19 pneumonia Acute on chronic hypoxic respiratory failure Central sleep apnea Diabetes mellitus Morbid obesity Dyslipidemia 10/08/2021, patient seen eval examined during the rounds labs reviewed medications reviewed care plan discussed, history status remains marginal but stable, on 2 L oxygen as saturation 92%, intermittent dry cough is present, patient remains on bronchodilator continuation of home meds, patient stable pulmonary standpoint for discharge and follow up on outpatient basis so will schedule sleep study 10/07/2021, shouldn't seen evaluated examined, remains afebrile hemodynamics stable, on 2 L oxygen saturation 95%, labs reviewed white cell count 7000 hemoglobin 1135, d-dimer is 1.17 sodium 30 patient 3.2, BUN/creatinine 10\.66\ 10/06/2021, patient continued do well respiratory difficulty improve still intermittent cough is present, appetite remains poor, quality of sleep however improved now Patient is a 60-year-old female well-known to me patient has a history of central sleep apnea obesity hypoventilation syndrome, history of traumatic brain injury recently found to have a cold with was hospitalized at [facility] she has been on a 10 L nasal cannula however subsequently titrated down to 5 L at that point she was discharged home to finish outpatient oral antibiotics and steroids, patient few days after discharge progressively became weaker tired fatigue and increasing shortness of breath came back to [facility] where her saturation found to be 89% on room air, really she is on 8 L/m nasal cannula, patient is on anti-inflammatory vitamins and minerals, chest x-ray performed revealed bilateral patchy infiltrate, computed tomography scan of the chest manifest similar thing and negative for pulmonary embolism Objective - Vital Signs Vital signs: Vital Signs Temp 97.7 F 10/08/21 06:21 Pulse 63 10/08/21 06:21 Resp 18 10/07/21 18:02 BP 166/94 10/08/21 06:21 Pulse Ox 92 L 10/08/21 06:21 Intake & Output 10/07/21 10/08/21 10/08/21 18:59 06:59 18:59 Other: Voiding Method Toilet # Voids 4 1 # Bowel Movements 3 1 - Exam - Constitutional General appearance: morbidly obese, no acute distress - EENT Eyes: PERRLA Ears: bilateral: normal - Neck Carotids: bilateral: upstroke normal Thyroid: bilateral: normal size - Respiratory Respiratory: bilateral: diminished - Cardiovascular Rhythm: regular Heart sounds: normal: S1, S2 - Gastrointestinal General gastrointestinal: soft - Integumentary Integumentary: normal turgor - Neurologic Neurologic: CNII-XII intact - Musculoskeletal Musculoskeletal: gait normal, generalized weakness, strength equal bilaterally - Labs CBC & Chem 7: 10/08/21 07:31 10/08/21 07:31 Labs: Abnormal Lab Results - Last 24 Hours (Table) 10/07/21 10/07/21 10/07/21 Range/Units 10:26 10:26 10:26 Hgb 11.3 L (11.4-16.0) gm/dL RDW 16.2 H (11.5-15.5) % Plt Count 144 L (150-450) k/uL D-Dimer 1.17 H (<0.60) mg/L FEU Sodium 132 L (137-145) mmol/L Potassium 3.2 L (3.5-5.1) mmol/L Chloride 90 L (98-107) mmol/L Carbon Dioxide 36 H (22-30) mmol/L Glucose 381 H (74-99) mg/dL POC Glucose (mg/dL) (75-99) mg/dL Calcium 7.9 L (8.4-10.2) mg/dL Phosphorus 2.4 L (2.5-4.5) mg/dL Magnesium 1.5 L (1.6-2.3) mg/dL AST 81 H (14-36) U/L ALT 67 H (4-34) U/L Lactate Dehydrogenase 1164 H (313-618) U/L Total Protein 6.1 L (6.3-8.2) g/dL Albumin 3.0 L (3.5-5.0) g/dL 10/07/21 10/07/21 10/07/21 Range/Units 11:39 16:46 20:14 Hgb (11.4-16.0) gm/dL RDW (11.5-15.5) % Plt Count (150-450) k/uL D-Dimer (<0.60) mg/L FEU Sodium (137-145) mmol/L Potassium (3.5-5.1) mmol/L Chloride (98-107) mmol/L Carbon Dioxide (22-30) mmol/L Glucose (74-99) mg/dL POC Glucose (mg/dL) 403 H 362 H 309 H (75-99) mg/dL Calcium (8.4-10.2) mg/dL Phosphorus (2.5-4.5) mg/dL Magnesium (1.6-2.3) mg/dL AST (14-36) U/L ALT (4-34) U/L Lactate Dehydrogenase (313-618) U/L Total Protein (6.3-8.2) g/dL Albumin (3.5-5.0) g/dL 10/08/21 10/08/21 10/08/21 Range/Units 06:56 07:31 07:31 Hgb 11.2 L (11.4-16.0) gm/dL RDW 16.2 H (11.5-15.5) % Plt Count 132 L (150-450) k/uL D-Dimer 2.08 H (<0.60) mg/L FEU Sodium (137-145) mmol/L Potassium (3.5-5.1) mmol/L Chloride (98-107) mmol/L Carbon Dioxide (22-30) mmol/L Glucose (74-99) mg/dL POC Glucose (mg/dL) 184 H (75-99) mg/dL Calcium (8.4-10.2) mg/dL Phosphorus (2.5-4.5) mg/dL Magnesium (1.6-2.3) mg/dL AST (14-36) U/L ALT (4-34) U/L Lactate Dehydrogenase (313-618) U/L Total Protein (6.3-8.2) g/dL Albumin (3.5-5.0) g/dL 10/08/21 Range/Units 07:31 Hgb (11.4-16.0) gm/dL RDW (11.5-15.5) % Plt Count (150-450) k/uL D-Dimer (<0.60) mg/L FEU Sodium 132 L (137-145) mmol/L Potassium (3.5-5.1) mmol/L Chloride 88 L (98-107) mmol/L Carbon Dioxide 36 H (22-30) mmol/L Glucose 178 H (74-99) mg/dL POC Glucose (mg/dL) (75-99) mg/dL Calcium 8.1 L (8.4-10.2) mg/dL Phosphorus (2.5-4.5) mg/dL Magnesium (1.6-2.3) mg/dL AST 67 H (14-36) U/L ALT 68 H (4-34) U/L Lactate Dehydrogenase 1174 H (313-618) U/L Total Protein (6.3-8.2) g/dL Albumin 3.3 L (3.5-5.0) g/dL Assessment and Plan Assessment: COVID-19 pneumonia Acute on chronic hypoxic respiratory failure Central sleep apnea Diabetes mellitus Morbid obesity Dyslipidemia Plan: Decadron Bronchodilators Taper oxygen down as tolerated Continue home medications Further plan of care as per clinical response of the patient Time with Patient: Greater than 30
[2021-10-08] MEDS: LORazepam 1 MG TAB PO PRN (08:57)
--- NOTE | 2021-10-08 11:34 | P.DS ---
Providers Date of admission: 10/04/21 19:30 Expected date of discharge: 10/08/21 Attending physician: Estefani Prieto DO Consults: 10/04/21 21:21 Consult Physician Routine Consulting Provider: Tomas Farrell Consult Reason/Comments: COVID, Acute exacerbation of COPD Do you want consulting provider notified?: Yes Primary care physician: Arleen Richardson Hospital Course: Discharge Diagnosis: COVID-19 pneumonitis Acute hypoxic respiratory failure- will need O2 on discharge. 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 On arrival to the ER her O2 sat was 89% on room air. Patient had reported she ran out of oxygen at home. Remainder of vital signs showed a an elevated systolic blood pressure 183/99. Laboratory analysis showed an elevated d-dimer at 1.07. She underwent a CTA of the chest which demonstrated bilateral interstitial infiltrate without evidence of pulmonary embolism. Sodium was 133, potassium 3.1, chloride 91, carbon dioxide 38, glucose 251, magnesium 1.5, AST 171, ALT 79, LDH 1471, and CRP 6.1. Arrangements were made for admission due to COVID-19 pneumonia with hypoxia. She did have coughing fits with decreased O2 overnight and had mucinex and tessalon added. She continued to do well and her continuing to her prior 5 L nasal cannula, which was eventually weaned to 2L Nc. She was determined stable for discharge home. Follow-up: She will be sent home with home health as well as home O2. She will continue her dexamethasone for an additional 2 days complete a 10 day trial. She'll need to follow-up with Dr. Farrell for home sleep study. She'll continue to monitor her blood sugars and make a log. She'll follow up with Yolette Ballard was helping and Dr. Richardson's absence. She did not qualify for longterm facility. Patient has a high likelihood of readmission. Patient seen and examined at bedside. She continues to have a cough, shortness of breath is unchanged, she has been doing okay getting up and walking. Denies any nausea, vomiting, diarrhea. She does have loose stools but they're only 1-2 times daily. Vital signs reviewed and stable. General: non toxic, no distress, obese, appears older than stated age, disheveled Derm: warm, dry Head: atraumatic, normocephalic, symmetric Eyes: EOMI, no lid lag, anicteric sclera Mouth: no lip lesion, mucus membranes moist Cardiovascular: S1S2 reg, no murmur, positive posterior tibial pulse bilateral, Lungs: Coarse breath sounds bilateral, no rhonchi, no rales , no accessory muscle use Abdominal: soft, nontender to palpation, no guarding, no appreciable organomegaly Ext: no gross muscle atrophy, 2+ pitting edema bilateral lower extremities, no contractures Neuro: CN II-XI grossly intact, no focal neuro deficits Psych: Alert, oriented, appropriate affect A total of 37 minutes of time were spent preparing this complex discharge summary . Patient Condition at Discharge: Stable Plan - Discharge Summary Discharge Rx Participant: Yes New Discharge Prescriptions: New guaiFENesin [Mucinex] 600 mg PO Q12HR #60 tablet Famotidine [Pepcid] 40 mg PO DAILY #30 tab LORazepam [Ativan] 1 mg PO TID PRN tab PRN Reason: Anxiety dexAMETHasone ORAL [Hexadrol] 6 mg PO DAILY #6 tab Benzonatate [Tessalon Perles] 200 mg PO TID PRN #90 cap PRN Reason: Cough Continue Insulin Regular, Human [NovoLIN R] See Protocol SQ TID Insulin NPH Human Isophane [NovoLIN N] See Protocol SQ BID Metoprolol Succinate (ER) [Toprol XL] 25 mg PO HS Furosemide [Lasix] 20 mg PO DAILY Isosorbide Mononitrate ER [Imdur] 30 mg PO DAILY Atorvastatin [Lipitor] 40 mg PO HS buPROPion HCL [Wellbutrin XL] 300 mg PO DAILY Albuterol Sulfate [Proair Hfa] 2 puff INHALATION RT-Q6H PRN PRN Reason: Shortness Of Breath Or Wheezing Escitalopram Oxalate [Lexapro] 20 mg PO DAILY Semaglutide [Ozempic] 0.25 mg SQ TH Acetaminophen Tab [Tylenol] 650 mg PO Q6HR PRN tab PRN Reason: Mild Pain Or Fever > 100.5 QUEtiapine FUMARATE [SEROquel] 800 mg PO HS OXcarbazepine [Trileptal] 300 mg PO HS OXcarbazepine [Trileptal] 600 mg PO DAILY Fluticasone/Salmeterol [Advair 500-50 Diskus] 1 puff INHALATION RT-BID Cyclobenzaprine [Flexeril] 10 mg PO HS PRN #0 PRN Reason: Muscle Spasm Gabapentin 800 mg PO BID Discontinued Zolpidem [Ambien] 10 mg PO HS LORazepam [Ativan] 2 mg PO TID Discharge Medication List Insulin NPH Human Isophane [NovoLIN N] See Protocol SQ BID 02/09/20 [History] Insulin Regular, Human [NovoLIN R] See Protocol SQ TID 02/09/20 [History] Furosemide [Lasix] 20 mg PO DAILY 07/19/20 [History] Metoprolol Succinate (ER) [Toprol XL] 25 mg PO HS 07/19/20 [History] Atorvastatin [Lipitor] 40 mg PO HS 08/15/20 [History] Isosorbide Mononitrate ER [Imdur] 30 mg PO DAILY 08/15/20 [History] Fluticasone/Salmeterol [Advair 500-50 Diskus] 1 puff INHALATION RT-BID 04/23/21 [History] buPROPion HCL [Wellbutrin XL] 300 mg PO DAILY 04/23/21 [History] Acetaminophen Tab [Tylenol] 650 mg PO Q6HR PRN tab 09/23/21 [Rx] Albuterol Sulfate [Proair Hfa] 2 puff INHALATION RT-Q6H PRN 09/23/21 [History] Cyclobenzaprine [Flexeril] 10 mg PO HS PRN #0 09/23/21 [Rx] Escitalopram Oxalate [Lexapro] 20 mg PO DAILY 09/23/21 [History] Semaglutide [Ozempic] 0.25 mg SQ TH 09/23/21 [History] Gabapentin 800 mg PO BID 10/04/21 [History] OXcarbazepine [Trileptal] 300 mg PO HS 10/04/21 [History] OXcarbazepine [Trileptal] 600 mg PO DAILY 10/04/21 [History] QUEtiapine FUMARATE [SEROquel] 800 mg PO HS 10/04/21 [History] Benzonatate [Tessalon Perles] 200 mg PO TID PRN #90 cap 10/08/21 [Rx] Famotidine [Pepcid] 40 mg PO DAILY #30 tab 10/08/21 [Rx] LORazepam [Ativan] 1 mg PO TID PRN tab 10/08/21 [Rx] dexAMETHasone ORAL [Hexadrol] 6 mg PO DAILY #6 tab 10/08/21 [Rx] guaiFENesin [Mucinex] 600 mg PO Q12HR #60 tablet 10/08/21 [Rx] Follow up Appointment(s)/Referral(s): Yolette Ballard NPC [REFERRING] - 1 Week [facility], [NON-STAFF] - As Needed Tomas Farrell MD [STAFF PHYSICIAN] - 2 Weeks (office is closed at time of discharge. Please call to schedule appointment ) Activity/Diet/Wound Care/Special Instructions: Activity: as tolerated Diet: Carbohydrate Consistent, Heart Healthy Diet Special Instructions: Check blood sugars 3 times daily and make a log Wear your oxygen at all times No Ambien at night Discharge Disposition: HOME WITH HOME HEALTH SERVICES
[2021-10-08 11:53] LABS: Glucose,Whole Blood 298 mg/dL (75-99)
[2021-10-08 15:22] VITALS: BP 160/77; PULSE 68; RESP 16; TEMP 97.4
[2021-10-08] MEDS: BENZONATATE 100 MG CAP PO PRN (15:22)
[2021-10-08 16:46] LABS: Glucose,Whole Blood 389 mg/dL (75-99)
== END 2021-10-08 18:14 | disposition home health service (06) | DRG 177 ==
LOC: EC 16:13 → 4SSUR 19:30
PROVIDERS: ADMIT Internal Medicine; ATTEND Internal Medicine
DX: U07.1 COVID-19 (principal); J12.82 Pneumonia due to coronavirus disease 2019; J96.21 Acute and chronic respiratory failure with hypoxia; Z68.42 Body mass index [BMI] 45.0-49.9, adult; E87.1 Hypo-osmolality and hyponatremia; J44.0 Chronic obstructive pulmonary disease with (acute) lower respiratory infection; J44.1 Chronic obstructive pulmonary disease with (acute) exacerbation; K57.92 Diverticulitis of intestine, part unspecified, without perforation or abscess without bleeding; D69.6 Thrombocytopenia, unspecified; E11.40 Type 2 diabetes mellitus with diabetic neuropathy, unspecified; E11.65 Type 2 diabetes mellitus with hyperglycemia; E66.01 Morbid (severe) obesity due to excess calories; E78.5 Hyperlipidemia, unspecified; E83.42 Hypomagnesemia; E86.0 Dehydration; E87.6 Hypokalemia; F32.A Depression, unspecified; F43.10 Post-traumatic stress disorder, unspecified; G47.31 Primary central sleep apnea; G47.33 Obstructive sleep apnea (adult) (pediatric); G89.29 Other chronic pain; I10 Essential (primary) hypertension; Z87.820 Personal history of traumatic brain injury; Z79.4 Long term (current) use of insulin; Z79.899 Other long term (current) drug therapy; Z80.0 Family history of malignant neoplasm of digestive organs; Z80.1 Family history of malignant neoplasm of trachea, bronchus and lung; Z82.49 Family history of ischemic heart disease and other diseases of the circulatory system; Z82.5 Family history of asthma and other chronic lower respiratory diseases; Z90.710 Acquired absence of both cervix and uterus
CPT/HCPCS: 36415; 71045; 71046; 71275; 80053; 82728; 83036; 83605; 83615; 83735; 84100; 84145; 85025; 85027; 85379; 85610; 85730; 86140; 87635; 93005; 94640; 99285